=== PATIENT | male | born 1965 | race Caucasian/White ===

== ENCOUNTER → 2022-02-08 11:35 | Outpatient (BNVA) | payer OTHER, SELFPAY | PROVIDERS: PCP Internal Medicine; Referring Provider Nurse Practitioner Primary Care; Visit Provider Internal Medicine | DX: I11.0 Hypertensive heart disease with heart failure (principal); I50.9 Heart failure, unspecified; E11.69 Type 2 diabetes mellitus with other specified complication; E66.01 Morbid (severe) obesity due to excess calories; Z68.42 Body mass index [BMI] 45.0-49.9, adult; E78.5 Hyperlipidemia, unspecified; Z79.899 Other long term (current) drug therapy | CPT/HCPCS: 93005; 99202 ==

== ENCOUNTER → 2022-03-05 13:33 | Outpatient (REF) | payer OTHER, SELFPAY ==
--- NOTE | 2022-03-05 13:37 | CA_ITS ---
Transthoracic Echocardiogram Patient (Last, First, Middle): Jon Vazquez, Gender: Male Date of : 1965 Age: 56 Procedure Date: 03/05/2022 Procedure Type: Transthoracic Echocardiogram Location: OP Height: 170.18 cm Weight: 140.62 kg BSA: 2.44 m2 Heart Rate: 67 bpm BP: 110 / 65 mmHg Antisubmarine Weapons Officer: BLAKE Referring MD: Amauri Aj MD Hollow Handle Bench Worker: Major Garcia MD Symptoms: I50.9 - Heart failure, unspecified Study Quality: Poor/Contrast ECG Rhythm: Sinus Conclusions: - 1. Technically limited study despite use of contrast agent 2. Mildly reduced LV systolic function with LVEF of 45-50% with possible wall motion noted to the distal lateral and apical wall with grade 1 diastolic dysfunction 3. Limited visualization of cardiac valves with normal cardiac valvular Doppler Findings Procedure Information Contrast agent, definity, is being given per protocol without apparent complications. Left Ventricle The left ventricle was not well visualized. Normal left ventricular cavity size. There is mildly increased left ventricular wall thickness. The left ventricular systolic function is mildly decreased. The visually estimated ejection fraction is between 45-50%. Spectral Doppler is indicative of an impaired relaxation filling pattern. E/E prime ratio is <8, consistent with normal filling pressures. Wall Motion Rest Echo Findings The apex and apical lateral segments are hypokinetic. The basal inferior segment is not visualized. All other scored wall segments showed normal motion. Right Ventricle The right ventricle was not well visualized. Atria The left atrium is likely dilated. Interatrial shunt cannot be excluded. The right atrium was not well visualized. Aortic Valve The aortic valve was not well visualized. There is no aortic valve stenosis. There is no aortic valve regurgitation. Mitral Valve Likely normal mitral valve structure and function. There is trace mitral valve regurgitation. There is no mitral valve stenosis. Pulmonic Valve The pulmonic valve was not well visualized. Tricuspid Valve The tricuspid valve was not well visualized. Tricuspid regurgitation envelope is inadequate for calculation of right ventricular systolic pressure. Great Vessels The aorta was not well visualized. The pulmonary artery was not well visualized. Venous The inferior vena cava was not well visualized. Pericardium/Pleural The pericardium was not well visualized. Prior Study Comparison No prior study available for comparison. Measurements 2D Linear Measurements IVSd: 1.16 0.6-0.9/0.6-1.0 cm LVIDd: 5.02 3.9-5.3/4.2-5.9 cm LVIDd Index: 2.06 2.4-3.2/2.2-3.1 cm/m2 LVIDs: 3.60 2.0-3.6 cm LVPWd: 1.19 0.7-1.1 cm LA Diam: 4.20 2.7-3.8/3.0-4.0 cm LAIDs Index: 1.72 1.5-2.3 cm/m2 LV Mass: 284.76 67-162/88-224 g LV Mass Index: 116.71 43-95/49-115 g/m2 LVOT Diam: 2.10 3.0+(-)1.3 cm 2D Systolic Function EF 4C: 50.90 >55% EF 2C: 46.70 >55% EF BiP: 47.90 >55% Mitral Valve MV Pk E: 0.60 MV PK A: 0.89 MV Decel Time: 300.00 E/A: 0.70 E'Lateral: 12.10 E'Medial: 7.94 E/E' Med: 7.60 E/E' Lat: 5.00 PHT: 88.00 MVA PHT: 2.50 Decel Mckenzie: 2.01 Aortic Valve AoV Pk Chong: 1.43 AoV Mn Chong: 1.02 AoV VTI: 0.31 AoV Pk Grad: 8.00 Aov Mn Grad: 5.00 GIGI Cont.VTI: 2.84 LVOT LVOT Pk Chong: 1.32 LVOT Mn Chong: 0.83 LVOT VTI: 0.25 LVOT Pk Grad: 7.00 LVOT Mn Grad: 3.00 LVOT Diam: 2.10 LVOT Area: 3.46 Diastolic Function MV Pk E: 0.60 MV Pk A: 0.89 E/A: 0.70 E'Medial: 7.94 E/E' Med: 7.60 E' Laterial: 12.10 E/E' Lat: 5.00 Right Ventricle TAPSE (mm): 24.20 TVS' Chong: 11.90 Great Vessels Aorta Sinus of Valsalva: 3.50 2.0-3.5 cm Ao Asc: 3.30 2.1-3.4 cm Pulmonary Valve PV Pk Chong: 1.21 Peak PV Grad: 6.00 Updated in Other Vendor System with Status of Final Major Garcia MD electronically signed on 03/06/2022 11:59:05 AM with status of Final
== END ==
LOC: HO.CARD 13:33
PROVIDERS: PCP Internal Medicine; Visit Provider Internal Medicine
DX: I50.9 Heart failure, unspecified (principal)
CPT/HCPCS: 93306; Q9957

== ENCOUNTER → 2022-05-17 10:26 | Outpatient (BNVA) | payer OTHER, SELFPAY | PROVIDERS: PCP Internal Medicine; Referring Provider Internal Medicine; Visit Provider Internal Medicine | DX: I42.8 Other cardiomyopathies (principal); E11.69 Type 2 diabetes mellitus with other specified complication; E66.01 Morbid (severe) obesity due to excess calories; Z68.42 Body mass index [BMI] 45.0-49.9, adult; I10 Essential (primary) hypertension; E78.5 Hyperlipidemia, unspecified; Z79.84 Long term (current) use of oral hypoglycemic drugs; Z79.899 Other long term (current) drug therapy | CPT/HCPCS: 99212 ==

== ENCOUNTER → 2022-07-26 09:08 | Outpatient (BNVA) | payer OTHER, SELFPAY | PROVIDERS: PCP Internal Medicine; Visit Provider Physician Assistant ==

== ENCOUNTER → 2022-08-04 12:30 | Outpatient (BNVA) | payer OTHER, SELFPAY | PROVIDERS: PCP Internal Medicine; Referring Provider Internal Medicine; Visit Provider Physician Assistant Surgical | DX: Z11.0 Encounter for screening for intestinal infectious diseases (principal); E66.01 Morbid (severe) obesity due to excess calories; Z68.41 Body mass index [BMI] 40.0-44.9, adult | CPT/HCPCS: 99202; 99211 ==

== ENCOUNTER 2022-08-04 17:47 | Outpatient (REF) | payer OTHER, SELFPAY ==
[2022-08-05 15:01] LABS: H Pylori Breath Test Negative (Negative)
== END 2022-08-04 17:48 | disposition home or self-care (01) ==
LOC: HO.LNP 17:47
PROVIDERS: Visit Provider Physician Assistant Surgical
DX: E66.01 Morbid (severe) obesity due to excess calories (principal); E11.29 Type 2 diabetes mellitus with other diabetic kidney complication; E66.9 Obesity, unspecified; E78.5 Hyperlipidemia, unspecified; Z11.0 Encounter for screening for intestinal infectious diseases
CPT/HCPCS: 83013

== ENCOUNTER 2022-08-12 09:11 | Outpatient (REF) | payer OTHER, SELFPAY ==
--- NOTE | ~2022-08-12 | XR_ITS ---
EXAMINATION: XR CHEST CLINICAL INFORMATION: Obesity COMPARISON: None available. TECHNIQUE: 2 views of the chest were obtained. FINDINGS: No significant abnormality is noted involving the heart, lungs, mediastinum, bony thorax or soft tissues. Low lung volumes. Degenerative changes of the spine. XR/XR chest 2V IMPRESSION: No evidence for acute disease in the chest.
[2022-08-12 09:39] LABS: MANUAL DIFF FLAG NO
[2022-08-12 10:41] LABS: Basophils Absolute Auto 0.1 X10*3/uL (0.0-0.2); Basophils Percent Auto 0.6 % (0-2); Eosinophils Absolute Auto 0.2 X10*3/uL (0.0-0.4); Eosinophils Percent Auto 2.4 % (0-4); Hematocrit 44.8 % (42.0-52.0); Hemoglobin 15.1 g/dl (14.0-18.0); Imm Gran Abs Auto 0.05 X10*3/uL (0.00-0.03); Imm Gran Pct Auto 0.6 % (0.0-0.4); Lymphocytes Percent Auto 26.2 % (20-40); Mean Corpuscular HGB Conc 33.7 g/dl (31.0-36.0); Mean Corpuscular Hemoglobin 28.9 pg (27.0-33.0); Mean Corpuscular Volume 85.7 fL (80.0-98.0); Mean Platelet Volume 10.9 fL (9.4-12.4); Monocytes Absolute Auto 0.8 X10*3/uL (0.1-1.2); Monocytes Percent Auto 9.6 % (2-11); Neutrophils Absolute Auto 4.7 x10*3/uL (2.0-8.3); Neutrophils Percent Auto 60.6 % (45-73); Platelet Count 148 X10*3/uL (160-400); Red Blood Count 5.23 X10*6/uL (4.60-5.80); Red Cell Distribution Width 13.8 % (11.0-16.0); White Blood Count 7.8 X10*3/uL (4.8-10.8)
[2022-08-12 10:51] LABS: Estimated Average Glucose 143 mg/dL; Hemoglobin A1c % 6.6 %
[2022-08-12 11:01] LABS: Alanine Aminotransferase 35 U/L (0-40); Albumin Level 4.4 g/dL (3.5-5.0); Alkaline Phosphatase 49 U/L (39-117); Anion Gap 13 (12-20); Aspartate Amino Transferase 31 U/L (5-37); Blood Urea Nitrogen 21 mg/dL (9-16); C Reactive Protein 0.17 mg/dL (< or = 0.50); Calcium 9.4 mg/dL (8.4-10.2); Carbon Dioxide 24 mmol/L (22-29); Chloride 107 mmol/L (96-108); Cholesterol 81 mg/dL; Estimated Glomerular Filt Rate > 60; Glucose Random 144 mg/dL (60-115); HDL Cholesterol 35 mg/dL; Iron 70 mcg/dL (45-160); LDL Cholesterol Calculated 29 mg/dl; Percent Iron Saturation 29 % (15-50); Sodium 140 mmol/L (135-145); Total Iron Binding Capacity 238 mcg/dL (228-428); Total Protein 7.2 g/dL (6.5-8.0); Triglycerides 88 mg/dL; Unsaturated Iron Binding 168 ug/dL
[2022-08-12 11:32] LABS: Ferritin 288 ng/mL (20-250); Folate 11.8 ng/mL (> or = 4.0); Insulin 16 uU/mL (2-29); Vitamin B12 449 pg/mL (200-900); Vitamin D 25-OH Total 36.6 ng/mL (>30)
[2022-08-16 21:49] LABS: Calcium (PTHI) 9.6 mg/dL (8.6-10.3); PTHI 28 pg/mL (16-77)
[2022-08-17 05:39] LABS: Zinc 88 mcg/dL (60-130)
[2022-08-19 23:44] LABS: Vitamin A 41 mcg/dL (38-98)
[2022-08-20 06:18] LABS: Vitamin B1 <6 nmol/L (8-30)
== END 2022-08-12 09:12 | disposition home or self-care (01) ==
LOC: HO.LAB 09:11
PROVIDERS: PCP Internal Medicine; Visit Provider Physician Assistant Surgical
DX: E11.69 Type 2 diabetes mellitus with other specified complication (principal); E66.01 Morbid (severe) obesity due to excess calories; E78.5 Hyperlipidemia, unspecified
CPT/HCPCS: 36415; 71046; 80053; 80061; 82306; 82607; 82728; 82746; 83036; 83525; 83540; 83970; 84425; 84443; 84590; 84630; 85025; 86140

== ENCOUNTER → 2022-08-17 09:38 | Outpatient (BNVA) | payer OTHER, SELFPAY | PROVIDERS: PCP Internal Medicine; Referring Provider Physician Assistant Surgical; Visit Provider Dietitian, Registered | DX: E66.01 Morbid (severe) obesity due to excess calories (principal) | CPT/HCPCS: 97802 ==

== ENCOUNTER → 2022-08-24 12:19 | Outpatient (BNVA) | payer OTHER, SELFPAY | PROVIDERS: PCP Internal Medicine; Visit Provider Physician Assistant Surgical | DX: E66.01 Morbid (severe) obesity due to excess calories (principal); Z68.41 Body mass index [BMI] 40.0-44.9, adult | CPT/HCPCS: 99212 ==

== ENCOUNTER 2022-09-14 09:42 | Outpatient (REF) | payer OTHER, SELFPAY ==
--- NOTE | ~2022-09-14 | XR_ITS ---
EXAMINATION: XR KNEE, RIGHT CLINICAL INFORMATION: Pain COMPARISON: None available. TECHNIQUE: Four views of the right knee. FINDINGS: Bone alignment is normal. No fracture or dislocation. Arthritis at the medial femoral tibial and patellofemoral joints the joint space narrowing and osteophyte formation. Osteophyte at the quadriceps tendon insertion to the patella. Small joint effusion. XR/XR knee RT 4V IMPRESSION: Osteoarthritis and small joint effusion.
== END 2022-09-14 09:43 | disposition home or self-care (01) ==
LOC: HO.XRAY 09:42
PROVIDERS: PCP Internal Medicine; Visit Provider Internal Medicine
DX: M25.561 Pain in right knee (principal); E66.01 Morbid (severe) obesity due to excess calories
CPT/HCPCS: 73564; 99212

== ENCOUNTER 2022-09-23 06:53 | Outpatient (REF) | payer OTHER, SELFPAY ==
--- NOTE | ~2022-09-23 | FL_ITS ---
EXAMINATION: XR FLUOROSCOPY UPPER GI WITH AIR CLINICAL INFORMATION: Morbid/severe obesity due to excess calories COMPARISON: None available. TECHNIQUE: Routine upper GI contrast study was performed. FINDINGS: Following oral administration of thick barium and effervescent granules there is normal propagation bolus from the oral cavity through the pharynx, esophagus into stomach without any evidence of obstruction, narrowing or stricture. On placing patient supine and prone lying the course, caliber and peristalsis, caliber and peristalsis of the stomach and the duodenal bulb is normal. The mucosal pattern of the stomach and the duodenal bulb and the sweep is normal. No gastroesophageal reflux or hiatal hernia FLUOROSCOPY TIME: 1.4 minutes DOSE AREA PRODUCT: 51.666 uGy-m2 (microgray-meter squared) FL/FL upper GI w air IMPRESSION: Unremarkable upper GI air-contrast study
--- NOTE | ~2022-09-23 | US_ITS ---
EXAMINATION: US COMPLETE ABDOMEN WITH LIVER ELASTOGRAPHY CLINICAL INFORMATION: Morbid obesity due to excess calories. COMPARISON: None available. TECHNIQUE: Real-time imaging of the abdominal viscera. Noninvasive ultrasound liver fibrosis assessment is performed using Mariusz ElastPQ point quantification shear wave elastography (2D-SWE) with a C5-2 MHz transducer. Multiple elastography samples are obtained. FINDINGS: PANCREAS: Normal. The visualized pancreatic head and body are normal in appearance. The remainder of the pancreas is obscured from visualization by the overlying bowel gas. ABDOMINAL AORTA: The proximal, middle, and distal aortic segments are normal in caliber. INFERIOR VENA CAVA: Visualized portions are normal. LIVER: Normal. The liver demonstrates normal size, contour and echogenicity. No focal lesion or intrahepatic biliary duct dilatation. The right lobe measures 20.0 cm in length. The left lobe measures 10.0 cm in length. Portal flow is hepatopedal. Shear wave liver elastography median stiffness is 1.48 m/s (reference: normal median stiffness is 1.3 m/s or less). IQR/median stiffness to assess sampling precision is 0.14 (reference: good quality data set is IQR/median stiffness of 0.15 or less). GALLBLADDER: The gallbladder has been surgically removed. COMMON BILE DUCT: Normal in caliber measuring 0.60 cm in diameter. RIGHT KIDNEY: There are anechoic cysts in the upper pole measuring 1.4 x 1.0 x 1.0 cm and 0.7 x 0.5 x 0.8 cm. No hydronephrosis. No renal calculi or focal parenchymal lesions. The lower poles of both kidneys are joined suggestive of horseshoe kidneys. The kidney measures 12.3 cm in maximum dimension. LEFT KIDNEY: Normal. No hydronephrosis. No renal calculi or focal parenchymal lesions. The kidney measures 12.9 cm in maximum dimension. The lower pole of both kidneys are joined suggestive of horseshoe kidney. SPLEEN: Normal. The spleen measures 13.5 cm in maximum dimension. FREE FLUID: None. US/US abdomen comp w elastography IMPRESSION: 1. 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 Several right kidney upper pole cysts. 2. Cholecystectomy. 3. Liver elastography: Median liver stiffness measures 1.48 m/s corresponding to cACLD (ruled out). REFERENCE: Society of Radiologists in Ultrasound Liver Stiffness Thresholds (2020): LIVER STIFFNESS THRESHOLDS: *Liver Stiffness equal or less than 1.3 m/s: High probability of being normal. *Liver Stiffness less than 1.7 m/s: In the absence of other known clinical signs, rules out compensated advanced chronic liver disease. *Liver Stiffness 1.7-2.1 m/s: Suggestive of compensated advanced chronic liver disease but need further test for confirmation. *Liver Stiffness over 2.1 m/s: Rules in compensated advanced chronic liver disease. *Liver Stiffness over 2.4 m/s: Suggestive of clinically significant portal hypertension. QUALITY OF DATA SET: *IQR/Median value equal or less than 0.15 implies a quality data set. *IQR/Median value over 0.15 implies a poor quality data set. SIGNIFICANT CHANGE FROM PRIOR EXAM: Significant change if liver stiffness measurement is 10% or greater from prior exam. OTHER CONSIDERATIONS: The stage of liver fibrosis may be overestimated in the setting of acute hepatitis, liver inflammation, elevated liver function tests, hepatic vascular congestion, obstructive cholestasis, non-fasting state, and infiltrative diseases such as amyloidosis and lymphoma. In some patients with NAFLD, the liver stiffness thresholds for compensated advanced chronic liver disease may be lower. In causes other than viral hepatitis and NAFLD, liver stiffness thresholds are not well established.
== END 2022-09-23 06:54 | disposition home or self-care (01) ==
LOC: HO.US 06:53
PROVIDERS: PCP Internal Medicine; Visit Provider Physician Assistant Surgical
DX: Z01.818 Encounter for other preprocedural examination (principal); E66.01 Morbid (severe) obesity due to excess calories; K21.9 Gastro-esophageal reflux disease without esophagitis; E78.5 Hyperlipidemia, unspecified; E11.69 Type 2 diabetes mellitus with other specified complication
CPT/HCPCS: 74246; 76705; 76981

== ENCOUNTER → 2022-10-22 08:52 | Outpatient (BNVA) | payer OTHER, SELFPAY | PROVIDERS: Visit Provider Dietitian, Registered | DX: E66.01 Morbid (severe) obesity due to excess calories (principal); E11.69 Type 2 diabetes mellitus with other specified complication; Z68.41 Body mass index [BMI] 40.0-44.9, adult | CPT/HCPCS: 97803 ==

== ENCOUNTER → 2022-11-04 09:32 | Outpatient (BNVA) | payer OTHER, SELFPAY | PROVIDERS: Visit Provider Physician Assistant Surgical | DX: E66.01 Morbid (severe) obesity due to excess calories (principal); Z68.41 Body mass index [BMI] 40.0-44.9, adult | CPT/HCPCS: 99212 ==

== ENCOUNTER 2022-11-19 10:22 | Outpatient (AMB) | payer OTHER, SELFPAY ==
--- NOTE | 2022-11-19 11:18 | A.OFFWM_ITS ---
Intake Intake Visit Reasons: (OV) F/U BH Allergies No Known Allergies Allergy (Verified 11/04/22 10:15) PFSH Medical History Asthma Chronic back pain Depression with anxiety Diabetes mellitus type 2 in obese Essential hypertension Hyperlipidemia, unspecified Morbid obesity GERDA (obstructive sleep apnea) Surgical History H/O right knee surgery Hx of cholecystectomy Hx of oral surgery Family History Father Lung cancer Mother Cancer Liver failure Sister No problems noted. Brother No problems noted. Brother No problems noted. Social History Alcohol intake: never Patient Tobacco Use Status: Never used Tobacco Behavioral Health Assessment Weight Management Therapy Therapy Notes Details Pt is a 56 year old, , albanian-speaking male who presents for BH assessment as a part of Surgical Weight-loss management program. PT started program in july, and has been able to loss 10Lbs. Reports to feel able to follow meal plan, but exercise is hard due to knee problems. He currently attends counseling services and gets prescribed psych meds. States he suffers from depression and anxiety but feels stable at this time. PT is not cleared as we will need a f/up to complete BES and PHQ-9 Presenting Concerns Referral Source WMP Provider. Reason for referral Completion of behavioral health assessment as part of process for weight-loss surgery. Precipitating Event Obesity, diabetes, HTN, body aches, knee problem. He wants to be healthy. Living Situation Current Living Situation Rent At risk of losing current housing? No Satisfied with current living situation? Yes Comments PT lives alone. Food/Weight/Diet Expectations of change PT wants to be at his healthy weight. one of the Goals is to lose 10% of his weight before surgery, which is about 28 lbs. Ultimate weight goal: 255 lbs before surgery History/Relationship with food Pt reports he used to find comfort in food, when depressed he used to eat a lot. But in general he loves food and is aware that his diet is hispanic0-style, mainly composed by fried foods, multiple carbs in 1 meal and limited physical activity. Used to eat big portions, a lot of bread. History/Relationship with weight PT reports he started gaining weight at age 15. Weight got out of control on his 30's. History/Relationship with dieting smaller portions, healthy options, Binge Eating Do you frequently eat large amounts of food in short periods of time, not feeling physically hungry? Yes Do you feel out of control when you eat a large amount of food in a short period of time? Yes Do you eat large amounts of food rapidly and typically alone? Yes Night Eating Do you wake up at least once during the night to eat? No If you wake up in the night, do you find that it is necessary to eat something in order to fall back asleep? No Do you have little or no appetite in the morning and feel very hungry in the evening, often overeating between dinner and when you go to bed? No Social History Family history and relationship PT is single. Was in a intermediate relationship for 20 years but partner in 2019. He had 1 daughter who days after . PT has 3 siblings who live in [place]. [place] he had a hard childhood, raised by paternal grandmother. His Mother was forced to his father, they and his father took his custody but since dad had to work overseas, grandparents raised him. Parental/Familial perfect binder setter obligations None. Developmental history and status Slow learner , had behavioral issues. Social support An uncle who lives close. 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 Community support Providers Oriental Orthodox/Spirituality Tenriism but doesn't attend [facility]. Cultural/Ethnic information PT was born in [place]. [place] the [place]. Has lives in multiple states and moved back to in [facility] one year ago. Legal Involvement and History Current or historical involvement with the legal system? None. Education Highest grade completed 9th grade. Preferred learning style Learn by doing and Visual Currently enrolled in educational program? No Interested in further educational program? No Educational Interests/Skills None identified. Employment Employment Status Retired Wants help to find employment? No Meaningful activities Watch tv, read the bible, visit brother/friends. Financial Situation Describe current financial situation Occasional struggle Financial assistance? Food [place] [employer] Service? No Mental Health and Addiction Treatment Current/Past substance abuse? No Current/Past addictive behavior concerns? No Psychiatric history Pt attends counseling and sees a prescriber at [facility]. Sees Ross Feldman as therapist. [phone] [id number]. Takes: Cymbalta 60mg 1 at day, klonopin 0.5mg 1 as needed. Reports he suffers from depression and has panic attacks. States he has never been hospitalized for MH and/or in crisis. Denies any hx of SI and or other concern around self/other-harm. Medical and Physical Health Summary Additional Medical History not covered in history None reported. Sexual History concerns None reported Physical exam in the last year? Yes Pain Screening Current pain? Yes Pain in the last few months? Yes Medications Is the patient compliant with medications? Yes Does the patient have Ford Guardian in place? Not applicable Does the patient use complimentary health approaches? No Trauma/Abuse History History of trauma? Yes (Multiple losses in his life, hard childhood.) Assessment & Plan Assessment & Plan (1) Depression: Code(s): F32.A - Depression, unspecified Qualifiers: Depression Type: major depressive disorder Major depression episode severity: unspecified Major depression recurrence: recurrent (2) Panic anxiety syndrome: Code(s): F41.0 - Panic disorder [episodic paroxysmal anxiety] Plan PT is not cleared. Will need to complete BES on next jasen and parts of assessment. Coding Level of Care Code New Pt Psy Diag Allyson ([id number]) Patient Type New Diagnoses Depression F32.A Depression Type: major depressive disorder Major depression episode severity: unspecified Major depression recurrence: recurrent Panic anxiety syndrome F41.0 Time Spent (min) 45 Comment 11:00-11:45am
== END 2022-11-23 16:26 | disposition home or self-care (01) ==
PROVIDERS: PCP Internal Medicine; Visit Provider Counselor Mental Health
DX: F32.A Depression, unspecified (principal); F41.0 Panic disorder [episodic paroxysmal anxiety]
CPT/HCPCS: 90791

== ENCOUNTER → 2022-11-19 10:22 | Outpatient (BNVA) | payer OTHER, SELFPAY | PROVIDERS: PCP Internal Medicine; Visit Provider Counselor Mental Health ==

== ENCOUNTER → 2022-11-22 09:21 | Outpatient (BNVA) | payer OTHER, SELFPAY | PROVIDERS: PCP Internal Medicine; Visit Provider Dietitian, Registered ==

== ENCOUNTER → 2022-11-29 09:10 | Outpatient (BNVA) | payer OTHER, SELFPAY | PROVIDERS: PCP Internal Medicine; Visit Provider Dietitian, Registered ==

== ENCOUNTER 2022-12-03 10:41 | Outpatient (AMB) | payer OTHER, SELFPAY ==
--- NOTE | 2022-12-03 10:48 | A.OFFVIS_ITS ---
Intake VS Expanded 12/03/22 11:02 Height 5 ft 7 in Weight 271 lb BMI 42.4 BP 105/58 L Blood Pressure Location Rt brachial Blood Pressure Position Sitting Pulse 72 Pulse Source Pulse Oximeter Temp 97.4 F Temperature Source Temporal Artery Scan Pulse Oximetry 97 Oxygen Delivery Method Room Air Body Fat 105.4 Body Fat Percentage 38.9 Free Fat Mass 165.6 Muscle Mass 157.4 Visceral Mass 25.0 Water Mass 120.6 BMR 2,289 Intake Visit Reasons: (OV) F/U SWL Allergies No Known Allergies Allergy (Verified 12/03/22 10:57) HPI HPI Comments History of Present Illness Details The patient is a pleasant 56 year old male who returns to the clinic for pre-operative surgical weight loss management.? They were last seen in the office on 09/14/22, recorded weight at that time was 273.8 pounds, with a BMI of 42.9.? Today's weight is 271 pounds and BMI is 42.4.? There has been a weight loss of 14.4 pounds since initiating the surgical weight loss program on 07/26/22 with a total body weight loss of 5 %. Pre op work up completed as follows: SWL classes:? 12/14 BH appts: 12/16/22? ? RD appts: 12/20/22 Labs: 08/12/22-Low B1, B12:449 H. pylori: 08/04/22-neg CXR: 09/01/22-nad EKG: TTE for hx CHF 03/05/22 EF 45-50 % with grade 1 diastolic dysfxn, f/u Dr Aj May 31 and felt non-ischemic w recc f/u 1 year ABD U/S: 09/23/22-horseshoe kidney, fatty liver UGI: 09/23/22-normal The patient reports he is continuing PT and is going to see Ortho in [facility] 12/10/22.? He is scheduled for knee injections but has not gotten them yet.? He is also scheduled for a home sleep study.? He did not get the sleep study from [place] that suggested that he no longer requires CPAP.? He is using Keto bar (15 gm protein) because he cannot find the zone perfect bars.? He was having low blood sugars and metformin was reduced to 500 mg BID and glipizide is no longer being taken and now his blood sugars are much better controlled with sugars 105-110.? Current meal plan includes: 3 Pure Protein shakes ([employer], [employer], [facility]) First shake? (1/2 scoop in 8 oz low fat unsweetened almond milk) at 8am-10am Second shake (1/2 scoop in 8 oz unsweetened almond milk) at? 11am-1pm Dinner at 4pm (10 forks of protein and 10 forks of salad/vegetables). 1 protein bar (Keto bars at [employer], [facility], or [employer]) at 5pm-7pm. Another shake with 1/2 scoop in 8 oz unsweetened almond milk at 8pm-10pm. Drinking 40 oz of water Current exercise plan includes: walking 4-5 x per [id number] minutes.? M/W/F PT.? Not yet joined [facility] Medical History Asthma Chronic back pain Depression with anxiety Diabetes mellitus type 2 in obese Essential hypertension Hyperlipidemia, unspecified Morbid obesity GERDA (obstructive sleep apnea) Surgical History H/O right knee surgery Hx of cholecystectomy Hx of oral surgery Family History Father Lung cancer Mother Cancer Liver failure Sister No problems noted. Brother No problems noted. Brother No problems noted. Social History Alcohol intake: never Patient Tobacco Use Status: Never used Tobacco Physical Exam Vital Signs: Last Vital Signs Temp 97.4 F 12/03/22 11:02 Pulse 72 12/03/22 11:02 BP 105/58 L 12/03/22 11:02 Pulse Ox 97 12/03/22 11:02 Oxygen Delivery Method Room Air 12/03/22 11:02 BMI result Body Mass Index 42.4 Const General: healthy appearing and no acute distress Resp Effort & Inspection: normal respiratory effort Auscultation: clear to auscultation bilaterally Cardio Rate: regular rate Rhythm: regular rhythm GI Auscultation: normal bowel sounds Extrem General: Yes normal to inspection Assessment & Plan Assessment & Plan (1) Morbid obesity: Code(s): E66.01 - Morbid (severe) obesity due to excess calories Plan: Strongly encouraged to join [employer] and walk in the pool, states he will join next month Discussed importance of exercise as related to weight loss Continue meal plan reminded of upcoming appts rtc 1 month Coding Level of Care Code Est Pt Level 3 (22596) Diagnoses Morbid obesity E66.01
[2022-12-03 11:02] VITALS: BP 105/58; PULSE 72; TEMP 36.3; O2SAT 97; BMI 42.4
== END 2022-12-03 11:45 | disposition home or self-care (01) ==
PROVIDERS: PCP Internal Medicine; Visit Provider Physician Assistant Surgical
DX: E66.01 Morbid (severe) obesity due to excess calories (principal)
CPT/HCPCS: 99213

== ENCOUNTER → 2022-12-03 10:41 | Outpatient (BNVA) | payer OTHER, SELFPAY | PROVIDERS: PCP Internal Medicine; Visit Provider Physician Assistant Surgical | DX: E66.01 Morbid (severe) obesity due to excess calories (principal); Z68.41 Body mass index [BMI] 40.0-44.9, adult | CPT/HCPCS: 99212 ==

== ENCOUNTER → 2022-12-06 09:23 | Outpatient (BNVA) | payer OTHER, SELFPAY | PROVIDERS: PCP Internal Medicine; Visit Provider Dietitian, Registered ==

== ENCOUNTER 2022-12-10 08:57 | Outpatient (AMB) | payer OTHER, SELFPAY ==
[2022-12-10 09:37] VITALS: BMI 42.4
--- NOTE | 2022-12-10 09:37 | MHC.OFFVIS ---
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 States he has had pain for many years. States his pain has increase about 7 months ago. Patient has tried P.T but his pain relief is temporarily. HX of rt MT repair about 10 yrs ago in [place]. States he has also tried injection, last on was done 2 yrs ago with dood result. Patient would like to discuss injection today. HX of DM and HBP. Allergies No Known Allergies Allergy (Verified 12/10/22 09:42) HPI Wellness Specialist- OA of right knee HPI Details Jon is a 56 year old Diabetic man who presents with complaints of right knee pain. He has pain with weight-bearing activities, worse with walking or standing from a seated position. He says he has had pain for many years, but it worsened in the last ~7 months. He has a hx of injections, with good relief, and PT which gave limited relief. He has a Hx of a right knee meniscectomy done in 2013 in [place], has Diabetes, and a Hx of CHF. He is undergoing an evaluation for Bariatric surgery and working on weight management [facility] Medical History Asthma Chronic back pain Depression with anxiety Diabetes mellitus type 2 in obese Essential hypertension Hyperlipidemia, unspecified Morbid obesity GERDA (obstructive sleep apnea) Surgical History H/O right knee surgery Hx of cholecystectomy Hx of oral surgery Family History Father Lung cancer Mother Cancer Liver failure Sister No problems noted. Brother No problems noted. Brother No problems noted. Social History Alcohol intake: never Patient Tobacco Use Status: Never used Tobacco Review of Systems Const All systems reviewed & are unremarkable except as noted in HPI and below Physical Exam Vital Signs: BMI result Body Mass Index 42.4 Const General: no acute distress, alert and awake Orientation/consciousness: patient oriented x3 HEENT Head: Yes normocephalic and Yes atraumatic Eyes EOM: EOMs intact bilaterally Resp Effort & Inspection: normal respiratory effort and able to speak in complete sentences Cardio Jugular venous distension: no JVD Skin General skin exam: turgor normal Rashes: no rashes Neuro General: patient oriented x3 Extrem Other: Right Knee: Sharp TTP over medial compartment, most prominent in medial tibial plateau Bilateral varus knees 10-120 degrees ROM bilaterally Walks with antalgia Psych Appearance: grossly normal Affect: normal affect Attitude: cooperative Office Procedures Joint Injection/Drain Joint Injection/Drain Details: Injected 1 mL of Decadron and 3 mL 1% lidocaine and 3 mL of 0.25% Marcaine. Site was prepped using aseptic technique. Patient tolerated the procedure well. Primary Site: right knee Approach Used: anterolateral Coding 77663 - Large joint Procedure code (CPT) selection complete Results Reviewed Results Reviewed: 12/10/22 09:43 Lidocaine HCl 2 % MPF [Xylocaine 2 % MPF] 5 ml .ROUTE .STK-MED ONE dexAMETHasone sod phosphate [Decadron] 4 mg .ROUTE .STK-MED ONE I personally reviewed relevant radiographs. Severe varus pattern bilateral knee OA Assessment & Plan Assessment & Plan (1) Osteoarthritis of right knee: Code(s): M17.11 - Unilateral primary osteoarthritis, right knee Plan: This is a 56 year old man with bilateral knee OA, R>L, S/P right meiscectomy in ~2012. He has pain with weight-bearing activities, worse with ambulation or standing from a seated position. He has a hx of relief from injections & PT in the past, and walks with antalgia. I discussed his diagnosis and treatment options, including surgery in the future. I injected his right knee today, which he tolerated well. If he is able to improve his BMI and bring it <40.0 then I think he would be a good candidate for a TKA. He will f/u in 3 months. (2) Diabetes mellitus type 2 in obese: Code(s): E11.69 - Type 2 diabetes mellitus with other specified complication; E66.9 - Obesity, unspecified Plan: I discussed the hyperglycemic effects of steroid injections (3) Morbid obesity: Code(s): E66.01 - Morbid (severe) obesity due to excess calories Plan: Current BMI 42.4. Working with Bariatrics (4) Osteoarthritis of left knee: Code(s): M17.12 - Unilateral primary osteoarthritis, left knee (5) Congestive heart failure: Code(s): I50.9 - Heart failure, unspecified Plan Scribed for Tommy Bhardwaj MD by Lamonte Romero, hospital medical assistant, on 12/10/22 at 10:55 AM, EST. Orders: Orders XR knee RT 2V Today M25.569 - Pain in unspecified knee XR knee standing BI Today M25.569 - Pain in unspecified knee Coding Level of Care Code New Pt Level 4 (62759) Diagnoses Osteoarthritis of right knee M17.11 Diabetes mellitus type 2 in obese E11.69; E66.9 Morbid obesity E66.01 Osteoarthritis of left knee M17.12 Congestive heart failure I50.9 CPT Codes Coding - 53093 Large joint: 22527 - Large joint ([id number])
== END 2022-12-10 10:58 | disposition home or self-care (01) ==
PROVIDERS: PCP Internal Medicine; Visit Provider Orthopaedic Surgery
DX: M17.0 Bilateral primary osteoarthritis of knee (principal); E11.69 Type 2 diabetes mellitus with other specified complication; E66.01 Morbid (severe) obesity due to excess calories; I50.9 Heart failure, unspecified
CPT/HCPCS: 20610; 99204

== ENCOUNTER 2022-12-10 08:57 | Outpatient (REF) | payer OTHER, SELFPAY ==
--- NOTE | ~2022-12-10 | XR_ITS ---
EXAMINATION: Knee x-ray CLINICAL INFORMATION: Pain COMPARISON: [facility] right knee x-ray September 2022 TECHNIQUE: Standing AP view of both knees and lateral and sunrise view of the right knee FINDINGS: Right: There is mild varus angulation. Bone alignment is otherwise normal. No fracture or dislocation. Arthritis at the medial femoral tibial and patellofemoral joints with joint space narrowing and osteophyte formation. Moderate joint effusion. Standing AP view of the left knee demonstrates mild varus angulation and joint space narrowing at the medial femoral tibial joint. XR/XR knee standing BI IMPRESSION: Bilateral arthritis.
--- NOTE | ~2022-12-10 | XR_ITS ---
EXAMINATION: Knee x-ray CLINICAL INFORMATION: Pain COMPARISON: Radius right knee x-ray September 2022 TECHNIQUE: Standing AP view of both knees and lateral and sunrise view of the right knee FINDINGS: Right: There is mild varus angulation. Bone alignment is otherwise normal. No fracture or dislocation. Arthritis at the medial femoral tibial and patellofemoral joints with joint space narrowing and osteophyte formation. Moderate joint effusion. Standing AP view of the left knee demonstrates mild varus angulation and joint space narrowing at the medial femoral tibial joint. XR/XR knee RT 2V IMPRESSION: Bilateral arthritis.
== END 2022-12-10 08:58 | disposition home or self-care (01) ==
LOC: HO.HOSX 08:57
PROVIDERS: PCP Internal Medicine; Visit Provider Orthopaedic Surgery
DX: M17.0 Bilateral primary osteoarthritis of knee (principal); E11.69 Type 2 diabetes mellitus with other specified complication; E66.01 Morbid (severe) obesity due to excess calories; I50.9 Heart failure, unspecified
CPT/HCPCS: 20610; 73560; 73565; 99202; J1100

== ENCOUNTER 2022-12-16 09:26 | Outpatient (AMB) | payer OTHER, SELFPAY ==
--- NOTE | 2022-12-16 10:00 | A.OFFVIS_ITS ---
Intake Intake Visit Reasons: (OV) F/U SWL Patient Access Registrar Required: Yes Patient Access Registrar Name: [id number] Information Interpreted: non-clinical & clinical Allergies No Known Allergies Allergy (Verified 12/10/22 09:42) HPI Nutrition Presentation Details CONCESSIONIST weight 283# Reason for consult elevated BMI Diet Assmnt Details Today we reviewed all the quizzes - took them in person. Explained the rationale for the correct answers for some questions he did not answer correctly. Pt demonstrates understanding. Education last appt about fats was recalled today and demonstrated in discussion Pt reports he has stopped eating carbs . for meals eats salad with chicken or fish. will do a stirfry sometimes as well. Dietary counseling reduction Diagnosis Nutrition problem #1 overweight/obesity As related to (etiology) #1 excess energy intake and physical inactivity As evidenced by (sign/symptom) #1 high BMI Monitoring/Goals Nutrition problem monitoring total energy intake, level of knowledge/skill, total PRO intake, total CHO intake and weight Outcome progress progressing Learning/Education Readiness to learn good Stages of change action Most Recent Diabetes Results: No Data to Display ON LICENSE OF [facility] Medical History Asthma Chronic back pain Depression with anxiety Diabetes mellitus type 2 in obese Essential hypertension Hyperlipidemia, unspecified Morbid obesity GERDA (obstructive sleep apnea) Surgical History H/O right knee surgery Hx of cholecystectomy Hx of oral surgery Family History Father Lung cancer Mother Cancer Liver failure Sister No problems noted. Brother No problems noted. Brother No problems noted. Social History Alcohol intake: never Patient Tobacco Use Status: Never used Tobacco Assessment & Plan Assessment & Plan (1) Morbid obesity: Code(s): E66.01 - Morbid (severe) obesity due to excess calories (2) Diabetes mellitus type 2 in obese: Code(s): E11.69 - Type 2 diabetes mellitus with other specified complication; E66.9 - Obesity, unspecified Patient Instructions: pt will need very clear instruction post op, but with proper guidance will be a good candidate and is cleared. Coding Level of Care Code Nutr Indiv Subseq (04907) Diagnoses Morbid obesity E66.01 Diabetes mellitus type 2 in obese E11.69; E66.9 Time Spent (min) 30 Comment in office
== END 2022-12-16 10:21 | disposition home or self-care (01) ==
PROVIDERS: PCP Internal Medicine; Visit Provider Dietitian, Registered
DX: E66.01 Morbid (severe) obesity due to excess calories (principal); E11.69 Type 2 diabetes mellitus with other specified complication; E66.9 Obesity, unspecified

== ENCOUNTER 2022-12-16 09:26 | Outpatient (AMB) | payer OTHER, SELFPAY ==
--- NOTE | 2022-12-16 10:42 | A.OFFWM_ITS ---
Intake Intake Visit Reasons: (OV) BH F/U Allergies No Known Allergies Allergy (Verified 12/10/22 09:42) PFSH Medical History Asthma Chronic back pain Depression with anxiety Diabetes mellitus type 2 in obese Essential hypertension Hyperlipidemia, unspecified Morbid obesity GERDA (obstructive sleep apnea) Surgical History H/O right knee surgery Hx of cholecystectomy Hx of oral surgery Family History Father Lung cancer Mother Cancer Liver failure Sister No problems noted. Brother No problems noted. Brother No problems noted. Social History Alcohol intake: never Patient Tobacco Use Status: Never used Tobacco Behavioral Health Assessment Weight Management Therapy Therapy Notes Details Pt is a 56 year old, , Cuban-speaking male who presents for a follow up appointment to complete assessment as a part of Surgical Weight- loss management program. He started program in july, and has been able to loss 10Lbs. Reports he continues following meal plan, but exercise still a struggle, however he will soon get membership for the [employer]. On the other hand ststes he has been down as december in general is a hard month due to several losses he has had across his life this month. INTERVENTIONS: administered BES and PHQ-9, processed scores. Discussed challenges with exercise and created ideas/plan to increase physical activity. Obtained KARAN for therapist/prescriber to clarify diagnosis, medication list and prognosis/recommendations/concerns for Bariatric surgery. Provided with strategies to manage cravings and low mood that could triggers emotional-eating. RESPONSES: PT was engaged and received well recommendations. PLAN: PT agreed to pursue [employer] membership this week. PT will f/up in 4-5 weeks. Clearance pending upon feedback from current provider. KARAN will be faxed to Paul and this provider will call his therapist today. Presenting Concerns Referral Source P Provider. Reason for referral Completion of behavioral health assessment as part of process for weight-loss surgery. Precipitating Event Obesity, diabetes, HTN, body aches, knee problem. He wants to be healthy. Living Situation Current Living Situation Rent At risk of losing current housing? No Satisfied with current living situation? Yes Comments PT lives alone. Food/Weight/Diet Expectations of change PT wants to be at his healthy weight. one of the Goals is to lose 10% of his weight before surgery, which is about 28 lbs. Ultimate weight goal: 255 lbs. before surgery History/Relationship with food Pt reports he used to find comfort in food, when depressed he used to eat a lot. But in general he loves food and is aware that his diet is hispanic0-style, mainly composed by fried foods, multiple carbs in 1 meal and limited physical activity. Used to eat big portions, a lot of bread. History/Relationship with weight PT reports he started gaining weight at age 15. Weight got out of control on his 30's. History/Relationship with dieting smaller portions, healthy options, Binge Eating Do you frequently eat large amounts of food in short periods of time, not feeling physically hungry? No Do you feel out of control when you eat a large amount of food in a short period of time? No Do you eat large amounts of food rapidly and typically alone? No Night Eating Do you wake up at least once during the night to eat? No If you wake up in the night, do you find that it is necessary to eat something in order to fall back asleep? No Do you have little or no appetite in the morning and feel very hungry in the evening, often overeating between dinner and when you go to bed? No Social History Family history and relationship PT is single. Was in a emt intermediate relationship for 20 years but partner in 2019. He had 1 daughter who days after . PT has 3 siblings who live in [place]. [place] he had a hard [place], raised by paternal grandmother. His Mother was forced to his father, they and his father took his custody but since dad had to work overseas, grandparents raised him. Parental/Familial crook operator obligations None. Developmental history and status Slow learner , had behavioral issues. Social support An uncle who lives close. 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 Community support Providers Moravian/Spirituality Jain but doesn't attend [facility]. Cultural/Ethnic information PT was born in [place]. Has lives in multiple states and moved back to in [facility] one year ago. Legal Involvement and History Current or historical involvement with the legal system? None. Education Highest grade completed 9th grade. Preferred learning style Learn by doing and Visual Currently enrolled in educational program? No Interested in further educational program? No Educational Interests/Skills None identified. Employment Employment Status Retired Wants help to find employment? No Meaningful activities Watch tv, read the bible, visit brother/friends. Financial Situation Describe current financial situation Occasional struggle Financial assistance? Food [place] Service Service? No Mental Health and Addiction Treatment Current/Past substance abuse? No Current/Past addictive behavior concerns? No Psychiatric history Pt attends counseling and sees a prescriber at [facility]. Sees Ross Feldman as therapist. [phone] [id number]. Takes: Cymbalta 60mg 1 at day, klonopin 0.5mg 1 as needed. Reports he suffers from depression and has panic attacks. States he has never been hospitalized for MH and/or in crisis. Denies any hx of SI and or other concern around self/other-harm. Medical and Physical Health Summary Additional Medical History not covered in history None reported. Sexual History concerns None reported Physical exam in the last year? Yes Pain Screening Current pain? Yes Pain in the last few months? Yes Medications Is the patient compliant with medications? Yes Does the patient have Ford Guardian in place? Not applicable Does the patient use complimentary health approaches? No Trauma/Abuse History History of trauma? Yes (Multiple losses in his life, hard childhood.) Questionnaires PHQ-9 Over the last 2 weeks, how often have you been bothered by any of the following problems? 1. Little interest or pleasure in doing things: several days 2. Feeling down, depressed, or hopeless: several days 3. Trouble falling or staying asleep, or sleeping too much: not at all 4. Feeling tired or having little energy: not at all 5. Poor appetite or overeating: not at all 6. Feeling bad about yourself - or that you are a failure or have let yourself or your family down: several days 7. Trouble concentrating on things, such as reading the newspaper or watching television: several days 8. Moving or speaking so slowly that other people could have noticed. Or the opposite - being so fidgety or restless that you have been moving around a lot more than usual: not at all 9. Thoughts that you would be better off or of hurting yourself in some way: not at all Total score: 4 Depression Screening Interpretation: Negative Source: Developed by Drs. Maldonado Tavera, Sravani Lebron, Lyndon Lloyd and colleagues, with an educational rosi from [employer]. Binge Eating Scale Group 1 A. I don't feel self-conscious about my wt. or body size when I'm with others. B. I feel concerned about how I look to others, but it normally does not make me fell disappointed with myself C. I do get self-conscious about my appearance and wt. which makes me feel disappointed in myself. D. I feel very self-conscious about my wt. and frequently I feel intense shame and disgust for myself. I try to avoid social contacts because of my self- consciousness. Response Group 1: A Group 2 A. I don't have any difficulty eating slowly in the proper manner. B. Although I seem to gobble down foods, I don't end up feeling stuffed because of eating to much. C. At times, I tend to eat quickly and then, I feel uncomfortably full afterwards. D. I have the habit of bolting down my food, without really chewing it. When this happens I usually feel uncomfortably stuffed because I've eaten to much. Response Group 2: A Group 3 A. I feel capable to control my eating urges when I want to. B. I feel like I have failed to control my eating more than the average person. C. I feel utterly helpless when it comes to feeling in control of my eating urges. D. Because I feel so helpless about controlling my eating I have become very desperate about trying to get control. Response Group 3: A Group 4 A. I don't have the habit of eating when I'm bored. B. I sometimes eat when I'm bored, but often I'm able to get busy and get my mind off food. C. I have a regular habit of eating when I'm bored, but occasionally, I can use some other activity to get my mind off eating. D. I have a strong habit of eating when I'm bored. Nothing seems to help me breath the habit. Response Group 4: A Group 5 A. I'm usually physically hungry when I eat something. B. Occasionally, I eat something on impulse even though I really am not hungry. C. I have the regular habit of eating foods, that I might not really enjoy, to satisfy a hungry feeling even though physically, I don't need the food. D. Although I'm not physically hungry, I get a hungry feeling in my mouth that only seems to be satisfied when I eat a food, like sandwich, that fills my mouth. Sometimes, when I eat the food to satisfy my mouth hunger, I then spit the food out so I won't gain weight. Response Group 5: A Group 6 A. I don't feel any guilt or self-hate after I overeat. B. After I overeat, occasionally I feel guilt or self-hate. C. Almost all the time I experience strong guilt or self-hate after I overeat. Response Group 6: B Group 7 A. I don't lose total control of my eating when dieting even after periods when I overeat. B. Sometimes when I eat a forbidden food on a diet, I feel like I blew it and eat even more. C. Frequently, I have the habit of saying to myself, I've blown it now, why not go all the way, when I overeat on a diet. When that happens I eat more. D. I have a regular habit of starting a strict diets for myself but I break the diets by going on an eating binge. My life seems to be either a feast or famine. Response Group 7: A Group 8 A. I rarely eat so much food that I feel uncomfortably stuffed afterwards. B. Usually about once a month, I each such a quantity of food, I end up feeling very stuffed. C. I have regular periods during the month when I eat large amounts of food, either at mealtime or at snacks. D. I eat so much food that I regularly feel quite uncomfortable after eating and sometimes a bit nauseous. Response Group 8: A Group 9 A. My level of calorie intake does not go up very high or go down very low on a regular basis. B. Sometimes after I overeat, I will try to reduce my caloric intake to almost nothing to compensate for the excess calories I've eaten. C. I have a regular habit of overeating during the night. It seems that my routine is not to be hungry in the morning but overeat in the evening. D. In my adult years, I have had week-long periods where I practically starve myself. This follows periods when I overeat. It seems I live a life of either feast or famine. Response Group 9: B Group 10 A. I usually am able to stop eating when I want to. I know when enough is enough. B. Every so often, I experience a compulsion to eat which I can't seem to control. C. Frequently, I experience strong urges to eat which I seem unable to control, but at other times I can control my eating urges. D. I feel incapable of controlling urges to eat. I have a fear of not being able to stop eating voluntarily. Response Group 10: A Group 11 A. I don't have any problem stopping eating when I feel full. B. I usually can stop eating when I feel full but occasionally overeat leaving me feeling uncomfortably stuffed. C. I have a problem stopping eating once I start and usually I feel uncomfortably stuffed after I eat a meal. D. Because I have a problem not being able to stop eating when I want, I sometimes have to induce vomiting to relieve my stuffed feeling. Response Group 11: A Group 12 A. I seem to eat just as much when I'm with others, Family social gatherings as when I'm by myself. B. Sometimes, when I'm with other persons, I don't eat as much as I want to eat because I'm self-conscious about my eating. C. Frequently, I eat only a small amount of food when others are present, because I'm very embarrassed about my eating. D. I feel so ashamed about overeating that I pick times to overeat when I know no one will see me. I feel like a closet eater. Response Group 12: A Group 13 A. I eat three meals a day with only an occasional between meal snack. B. I eat 3 meals a day, but I also normally snack between meals. C. When I am snacking heavily, I get in the habit of skipping regular meals. D. There are regular periods when I seem to be continually eating, with no planned meals. Response Group 13: A Group 14 A. I don't think much about trying to control unwanted eating urges. B. At least some of the time, I feel my thoughts are pre-occupied with trying to control my eating urges. C. I feel that frequently I spend much time thinking about how much I ate or about trying not to eat anymore. D. It seems to me that most of my waking hours are pre-occupied by thoughts about eating or not eating. I feel like I'm constantly struggling not to eat. Response Group 14: A Group 15 A. I don't think about food a great deal. B. I have strong craving for food but they last only for brief periods of time. C. I have days when I can't seem to think about anything else but food. D. Most of my days seem to be pre-occupied with thoughts about food. I feel like I live to eat. Response Group 15: A Group 16 A. I usually know whether or not I'm physically hungry. I take the right portion of food to satisfy me. B. Occasionally, I feel uncertain about knowing whether or not I'm physically hungry. A these times it's hard to know how much food I should take to satisfy me. C. Even though I might know how many calories I should eat, I don't have any idea what is a normal amount of food for me. Response Group 16: A Binge Eating Score: 2 Score less than 17 Minimal Risk Score between 18-26 Moderate Risk Score between 27-46 High Risk Assessment & Plan Assessment & Plan (1) Depression: Code(s): F32.A - Depression, unspecified Qualifiers: Depression Type: major depressive disorder Major depression recurrence: recurrent Major depression episode severity: unspecified (2) Panic anxiety syndrome: Code(s): F41.0 - Panic disorder [episodic paroxysmal anxiety] Plan Pt seems to be stable from the mental health standpoint, however this provider will contact current MH providers to clarify diagnosis, medication and prognosis/concerns. Follow up in 4-5 weeks. Coding Level of Care Code Established Pt Psytx 45 mins (37990) Patient Type Established Diagnoses Depression F32.A Depression Type: major depressive disorder Major depression recurrence: recurrent Major depression episode severity: unspecified Panic anxiety syndrome F41.0 Time Spent (min) 45 Comment 10:30-11:15am.
== END 2022-12-16 12:09 | disposition home or self-care (01) ==
PROVIDERS: PCP Internal Medicine; Visit Provider Counselor Mental Health
DX: F32.A Depression, unspecified (principal); F41.0 Panic disorder [episodic paroxysmal anxiety]
CPT/HCPCS: 90834

== ENCOUNTER → 2022-12-16 09:26 | Outpatient (BNVA) | payer OTHER, SELFPAY | PROVIDERS: PCP Internal Medicine; Visit Provider Counselor Mental Health | DX: E66.01 Morbid (severe) obesity due to excess calories (principal); E11.69 Type 2 diabetes mellitus with other specified complication; Z71.3 Dietary counseling and surveillance | CPT/HCPCS: 97803 ==

== ENCOUNTER 2023-01-07 10:09 | Outpatient (AMB) | payer OTHER, SELFPAY ==
--- NOTE | 2023-01-07 11:07 | MHC.OFFVISWM ---
Intake VS Expanded 01/07/23 11:15 Height 5 ft 5 in Weight 270 lb BMI 44.9 BP 102/53 L Blood Pressure Location Lt brachial Blood Pressure Position Sitting Respiratory Rate 14 Pulse 67 Body Fat 105.8 Body Fat Percentage 39.2 Free Fat Mass 164.0 Muscle Mass 155.8 Visceral Mass 25.0 Water Mass 118.8 BMR 2,268 Intake Visit Reasons: (OV) F/U SWL Intake Note: Patient follow up for SWL. Relations Coordinator Required: Yes Relations Coordinator Name: office cmi Accompanied by: Self / Same As Patient Allergies No Known Allergies Allergy (Verified 01/07/23 11:06) Medication List - Last Reconciled 01/07/23 by KYLIE Larry amlodipine 10 mg PO DAILY carvedilol 3.125 mg PO BID cyanocobalamin (vitamin B-12) 500 mcg PO QAM ezetimibe 10 mg PO DAILY gabapentin 100 mg PO lisinopril 40 mg PO DAILY metformin ER 500 mg PO BID rosuvastatin 20 mg PO BEDTIME tamsulosin 0.4 mg PO DAILY thiamine HCl (vitamin B1) 100 mg PO QAM HPI HPI Comments History of Present Illness Details The patient is a pleasant 57 year old male who returns to the clinic for pre-operative surgical weight loss management. They were last seen in the office on 12/03/22, recorded weight at that time was 271 pounds, with a BMI of 42.4. Today's weight is 270 pounds and BMI is 42.3. There has been a weight loss of 15.4 pounds since initiating the surgical weight loss program on 07/26/22 with a total body weight loss of 5.3 %. Pre op work up completed as follows: SWL classes:? 12/14 BH appts: 12/16/22, needs f/u? ? RD appts: cleared 12/16/22 Labs: 08/12/22-Low B1, B12:449 H. 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 He is also scheduled for a home sleep study.? He did not get the sleep study from [place] that suggested that he no longer requires CPAP.? He is using Keto bar (15 gm protein) because he cannot find the zone perfect bars.? He was having low blood sugars and metformin was reduced to 500 mg BID and glipizide is no longer being taken and now his blood sugars are much better controlled with sugars 105-110.? Current meal plan includes: 3 Pure Protein shakes ([employer], [employer], [facility]) First shake? (1/2 scoop in 8 oz low fat unsweetened almond milk) at 8am-10am Second shake (1/2 scoop in 8 oz unsweetened almond milk) at? 11am-1pm Dinner at 4pm (10 forks of protein and 10 forks of salad/vegetables). 1 protein bar (Keto bars at [facility], [facility], or [employer]) at 5pm-7pm. Another shake with 1/2 scoop in 8 oz unsweetened almond milk at 8pm-10pm. Drinking 40 oz of water Current exercise plan includes: walking 4-5 x per [id number] minutes.? M/W/F PT.? Not yet joined [employer] Medical History Asthma Chronic back pain Depression with anxiety Diabetes mellitus type 2 in obese Essential hypertension Hyperlipidemia, unspecified Morbid obesity GERDA (obstructive sleep apnea) Surgical History H/O right knee surgery Hx of cholecystectomy Hx of oral surgery Family History Father Lung cancer Mother Cancer Liver failure Sister No problems noted. Brother No problems noted. Brother No problems noted. Social History Alcohol intake: never Patient Tobacco Use Status: Never used Tobacco Physical Exam Const General: healthy appearing and no acute distress Resp Effort & Inspection: normal respiratory effort Auscultation: clear to auscultation bilaterally Cardio Rate: regular rate Rhythm: regular rhythm GI Auscultation: normal bowel sounds Extrem General: Yes normal to inspection Assessment & Plan Assessment & Plan (1) Morbid obesity: Code(s): E66.01 - Morbid (severe) obesity due to excess calories Plan: continue plan encouraged to join [employer] and given paper again RTC 1 month f/u scheduled Coding Level of Care Code Est Pt Level 3 (34339) Diagnoses Morbid obesity E66.01
[2023-01-07 11:15] VITALS: BP 102/53; PULSE 67; RESP 14; BMI 44.9
== END 2023-01-07 11:45 | disposition home or self-care (01) ==
PROVIDERS: PCP Internal Medicine; Visit Provider Physician Assistant Surgical
DX: E66.01 Morbid (severe) obesity due to excess calories (principal)
CPT/HCPCS: 99213

== ENCOUNTER → 2023-01-07 10:09 | Outpatient (BNVA) | payer OTHER, SELFPAY | PROVIDERS: PCP Internal Medicine; Visit Provider Physician Assistant Surgical | DX: E66.01 Morbid (severe) obesity due to excess calories (principal); Z68.41 Body mass index [BMI] 40.0-44.9, adult | CPT/HCPCS: 99212 ==

== ENCOUNTER 2023-01-12 11:15 | Outpatient (REF) | payer OTHER, SELFPAY ==
[2023-01-12 15:01] LABS: Creatinine Urine 59.87 mg/dL
== END 2023-01-12 11:16 | disposition home or self-care (01) ==
LOC: HO.HHCL 11:15
PROVIDERS: Visit Provider Internal Medicine
DX: E11.65 Type 2 diabetes mellitus with hyperglycemia (principal)
CPT/HCPCS: 82043; 82570

== ENCOUNTER 2023-01-12 11:19 | Outpatient (REF) | payer OTHER, SELFPAY ==
--- NOTE | ~2023-01-12 | XR_ITS ---
EXAMINATION: XR SHOULDER, RIGHT CLINICAL INFORMATION: Acute pain of right shoulder x1 month. COMPARISON: None available. TECHNIQUE: AP external rotation, Grashey, scapular Y, and axillary views of the right shoulder. FINDINGS: The bones and soft tissues are normal. No fracture. Glenohumeral and acromioclavicular alignment is anatomic with normal joint space. No abnormal soft tissue calcifications. XR/XR shoulder RT min 2V IMPRESSION: Unremarkable right shoulder.
== END 2023-01-12 11:20 | disposition home or self-care (01) ==
LOC: HO.HHCX 11:19
PROVIDERS: Visit Provider Internal Medicine
DX: M25.511 Pain in right shoulder (principal)
CPT/HCPCS: 73030

== ENCOUNTER 2023-02-03 09:23 | Outpatient (AMB) | payer OTHER, SELFPAY ==
--- NOTE | 2023-02-03 11:32 | MHC.WMTHER ---
Intake Intake Visit Reasons: (OV) F/U BH Allergies No Known Allergies Allergy (Verified 02/03/23 09:49) PFSH Medical History Asthma Chronic back pain Depression with anxiety Diabetes mellitus type 2 in obese Essential hypertension Hyperlipidemia, unspecified Morbid obesity GERDA (obstructive sleep apnea) Surgical History Hx of cholecystectomy Hx of oral surgery H/O right knee surgery Family History Father Lung cancer Mother Cancer Liver failure Sister No problems noted. Brother No problems noted. Brother No problems noted. Social History Alcohol intake: never Patient Tobacco Use Status: Never used Tobacco Behavioral Health Assessment Weight Management Therapy Therapy Notes Details Pt is a 56 year old, , Korean-speaking male who presents for a follow up appointment. Pt presents discouraged as he gained weight, also he has not been exercising due to knee issues, but in general is ding well emotionally, trying to have a good attitude . Was able to go to the [facility] but didn't enrolled as they have no pool. Provider called pt's therapist, ross and sent a request for records on 12/16 but has not received anything yet. INTERVENTIONS: Discussed overall functioning and daily challenge. Repeated PHQ-9, processed scores. Solution-focused methods for identified needs. Also completed a mindfulness exercise to use when dealing with cravings or food thoughts. Provided client with information to use door to door transportation services with [facility]. RESPONSES: PT was engaged and received well recommendations. Mental status within normal limits suggesting functioning is not impaired. PLAN: Pt is cleared today and no f/up is required but he can request one if needs additional support. Presenting Concerns Referral Source [facility] Provider. Reason for referral Completion of behavioral health assessment as part of process for weight-loss surgery. Precipitating Event Obesity, diabetes, HTN, body aches, knee problem. He wants to be healthy. Living Situation Current Living Situation Rent At risk of losing current housing? No Satisfied with current living situation? Yes Comments PT lives alone. Food/Weight/Diet Expectations of change PT wants to be at his healthy weight. one of the Goals is to lose 10% of his weight before surgery, which is about 28 lbs. Ultimate weight goal: 255 lbs. before surgery History/Relationship with food Pt reports he used to find comfort in food, when depressed he used to eat a lot. But in general he loves food and is aware that his diet is hispanic0-style, mainly composed by fried foods, multiple carbs in 1 meal and limited physical activity. Used to eat big portions, a lot of bread. History/Relationship with weight PT reports he started gaining weight at age 15. Weight got out of control on his 30's. History/Relationship with dieting smaller portions, healthy options. Binge Eating Do you frequently eat large amounts of food in short periods of time, not feeling physically hungry? No Do you feel out of control when you eat a large amount of food in a short period of time? No Do you eat large amounts of food rapidly and typically alone? No Night Eating Do you wake up at least once during the night to eat? No If you wake up in the night, do you find that it is necessary to eat something in order to fall back asleep? No Do you have little or no appetite in the morning and feel very hungry in the evening, often overeating between dinner and when you go to bed? No Social History Family history and relationship PT is single. 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 He had 1 daughter who days after . PT has 3 siblings who live in [place]. [place] he had a hard childhood, raised by paternal grandmother. His Mother was forced to his father, they and his father took his custody but since dad had to work overseas, grandparents raised him. Parental/Familial geriatric psychiatrist obligations None. Developmental history and status Slow learner , had behavioral issues. Social support An uncle who lives close. He has a niece who help him with appointments and is his [employer]. Community support Providers Adventist/Spirituality Spiritism but doesn't attend [facility]. Cultural/Ethnic information PT was born in [place]. Has lives in multiple states and moved back to in [facility] one year ago. Legal Involvement and History Current or historical involvement with the legal system? None. Education Highest grade completed 9th grade. Preferred learning style Learn by doing and Visual Currently enrolled in educational program? No Interested in further educational program? No Educational Interests/Skills None identified. Employment Employment Status Retired Wants help to find employment? No Meaningful activities Watch tv, read the bible, visit brother/friends. Financial Situation Describe current financial situation Occasional struggle Financial assistance? Food [place] Service Service? No Mental Health and Addiction Treatment Current/Past substance abuse? No Current/Past addictive behavior concerns? No Psychiatric history Pt attends counseling and sees a prescriber at [facility]. Sees Ross Feldman as therapist. [phone] [id number]. Takes: Cymbalta 60mg 1 at day, klonopin 0.5mg 1 as needed. Reports he suffers from depression and has panic attacks. States he has never been hospitalized for MH and/or in crisis. Denies any hx of SI and or other concern around self/other-harm. Medical and Physical Health Summary Additional Medical History not covered in history None reported. Sexual History concerns None reported Physical exam in the last year? Yes Pain Screening Current pain? Yes Pain in the last few months? Yes Medications Is the patient compliant with medications? Yes Does the patient have Ford Guardian in place? Not applicable Does the patient use complimentary health approaches? No Trauma/Abuse History History of trauma? Yes (Multiple losses in his life, hard childhood.) Questionnaires PHQ-9 Over the last 2 weeks, how often have you been bothered by any of the following problems? 1. Little interest or pleasure in doing things: not at all 2. Feeling down, depressed, or hopeless: not at all 3. Trouble falling or staying asleep, or sleeping too much: several days 4. Feeling tired or having little energy: not at all 5. Poor appetite or overeating: several days (in the evenings.) 6. Feeling bad about yourself - or that you are a failure or have let yourself or your family down: not at all 7. Trouble concentrating on things, such as reading the newspaper or watching television: not at all 8. Moving or speaking so slowly that other people could have noticed. Or the opposite - being so fidgety or restless that you have been moving around a lot more than usual: not at all 9. Thoughts that you would be better off or of hurting yourself in some way: not at all Total score: 2 Depression Screening Interpretation: Positive 57701 - PHQ-9 Billing: Yes Source: Developed by Drs. Maldonado Tavera, Sravani Lebron, Lyndon Lloyd and colleagues, with an educational rosi from [employer]. Assessment & Plan Assessment & Plan (1) Depression: Code(s): F32.A - Depression, unspecified (2) Panic anxiety syndrome: Code(s): F41.0 - Panic disorder [episodic paroxysmal anxiety] Plan Pt has been cleared from the standpoint. At this time there is no need to f/up with me but he has been advised to reach us for support if in need. Coding Level of Care Code Established Pt Psytx 45 mins (35068) Patient Type Established Diagnoses Depression F32.A Panic anxiety syndrome F41.0 Time Spent (min) 45
== END 2023-02-03 12:15 | disposition home or self-care (01) ==
PROVIDERS: PCP Internal Medicine; Visit Provider Counselor Mental Health
DX: F32.A Depression, unspecified (principal); F41.0 Panic disorder [episodic paroxysmal anxiety]
CPT/HCPCS: 90834

== ENCOUNTER 2023-02-03 09:23 | Outpatient (AMB) | payer OTHER, SELFPAY ==
--- NOTE | 2023-02-03 09:44 | MHC.OFFVISWM ---
Intake VS Expanded 02/03/23 09:53 Height 5 ft 7 in Weight 275 lb 9.6 oz BMI 43.2 BP 118/59 L Blood Pressure Location Rt brachial Blood Pressure Position Sitting Pulse 70 Pulse Source Pulse Oximeter Temp 97.1 F Temperature Source Temporal Artery Scan Pulse Oximetry 98 Oxygen Delivery Method Room Air Body Fat 107.0 Body Fat Percentage 38.8 Free Fat Mass 168.6 Muscle Mass 160.2 Visceral Mass 26.0 Water Mass 125.2 BMR 2,335 Intake Visit Reasons: (OV) F/U SWL Cook Supervisor Required: No Cook Supervisor Name: office cmi Allergies No Known Allergies Allergy (Verified 02/03/23 09:49) Medication List - Last Reconciled 02/03/23 by KYLIE Larry amlodipine 10 mg PO DAILY carvedilol 3.125 mg PO BID cyanocobalamin (vitamin B-12) 500 mcg PO QAM ezetimibe 10 mg PO DAILY gabapentin 100 mg PO lisinopril 40 mg PO DAILY metformin ER 500 mg PO BID rosuvastatin 20 mg PO BEDTIME tamsulosin 0.4 mg PO DAILY thiamine HCl (vitamin B1) 100 mg PO QAM HPI HPI Comments History of Present Illness Details The patient is a pleasant 57 year old male who returns to the clinic for pre-operative surgical weight loss management. They were last seen in the office on 01/07/23, recorded weight at that time was 270 pounds, with a BMI of 42.3. Today's weight is 275.6 pounds and BMI is 43.2. There has been a weight loss of 10.4 pounds since initiating the surgical weight loss program on 07/26/22 with a total body weight loss of 3.6 %. Pre op work up completed as follows: SWL classes:? 12/14 BH appts: 12/16/22, needs f/u? ? RD appts: cleared 12/16/22 Labs: 08/12/22-Low B1, B12:449 H. 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 He is also scheduled for a home sleep study.? He did not get the sleep study from [place] that suggested that he no longer requires CPAP.? He is using Keto bar (15 gm protein) because he cannot find the zone perfect bars.? He states he fell 1 week ago and hurt his right knee. He was having low blood sugars and metformin was reduced to 500 mg BID and glipizide is no longer being taken and now his blood sugars are much better controlled with sugars 105-110.? Current meal plan includes: 3 Pure Protein shakes ([employer], [employer], [facility]) First shake? (1/2 scoop in 8 oz low fat unsweetened almond milk) at 8am-10am Second shake (1/2 scoop in 8 oz unsweetened almond milk) at? 11am-1pm Dinner at 4pm (10 forks of protein and 10 forks of salad/vegetables). 1 protein bar (Keto bars at [facility], [facility], or [employer]) at 5pm-7pm. Another shake with 1/2 scoop in 8 oz unsweetened almond milk at 8pm-10pm. Drinking 40 oz of water Current exercise plan includes: none in last week after his fall. Joined [employer] but no pool. Given info for [employer]? [facility] Medical History Asthma Chronic back pain Depression with anxiety Diabetes mellitus type 2 in obese Essential hypertension Hyperlipidemia, unspecified Morbid obesity GERDA (obstructive sleep apnea) Surgical History Hx of cholecystectomy Hx of oral surgery H/O right knee surgery Family History Father Lung cancer Mother Cancer Liver failure Sister No problems noted. Brother No problems noted. Brother No problems noted. Social History Alcohol intake: never Patient Tobacco Use Status: Never used Tobacco Review of Systems Const All systems reviewed & are unremarkable except as noted in HPI and below Physical Exam Vital Signs: Last Vital Signs Temp 97.1 F 02/03/23 09:53 Pulse 70 02/03/23 09:53 BP 118/59 L 02/03/23 09:53 Pulse Ox 98 02/03/23 09:53 Oxygen Delivery Method Room Air 02/03/23 09:53 BMI result Body Mass Index 43.2 Const General: healthy appearing and no acute distress Resp Effort & Inspection: normal respiratory effort Auscultation: clear to auscultation bilaterally Cardio Rate: regular rate Rhythm: regular rhythm GI Auscultation: normal bowel sounds Extrem General: Yes normal to inspection Assessment & Plan Assessment & Plan (1) Morbid obesity: Code(s): E66.01 - Morbid (severe) obesity due to excess calories Plan: Will follow plan exactly join [employer] discussed need for more PT given recent fall and he will contact his PCP Discussed the need to be able to make progress or at the very least text me weekly. if no progress at next appt in 1 month will break from program Coding Level of Care Code Est Pt Level 3 (88087) Diagnoses Morbid obesity E66.01
[2023-02-03 09:53] VITALS: BP 118/59; PULSE 70; TEMP 36.2; O2SAT 98; BMI 43.2
== END 2023-02-03 10:12 | disposition home or self-care (01) ==
PROVIDERS: PCP Internal Medicine; Visit Provider Physician Assistant Surgical
DX: E66.01 Morbid (severe) obesity due to excess calories (principal)
CPT/HCPCS: 99213

== ENCOUNTER → 2023-02-03 09:23 | Outpatient (BNVA) | payer OTHER, SELFPAY | PROVIDERS: PCP Internal Medicine; Visit Provider Physician Assistant Surgical | DX: E66.01 Morbid (severe) obesity due to excess calories (principal); Z68.41 Body mass index [BMI] 40.0-44.9, adult | CPT/HCPCS: 99212 ==

== ENCOUNTER 2023-04-22 09:08 | Outpatient (AMB) | payer OTHER, SELFPAY ==
--- NOTE | 2023-04-22 10:04 | A.OFFVIS_ITS ---
Intake VS Expanded 04/22/23 10:15 Blood Pressure Location Rt brachial Blood Pressure Position Sitting Pulse 68 Pulse Source Pulse Oximeter Temp 97.7 F Temperature Source Temporal Artery Scan Pulse Oximetry 98 Oxygen Delivery Method Room Air Height 5 ft 7 in Weight 280 lb BMI 43.8 Body Fat % 42.8 Body Fat Mass 120.0 Fat Free Mass 160.0 Visceral Fat Rating 15.0 Body Water % 40.6 Body Water Mass 113.8 Muscle Mass/Score 152.2 Basal Metabolic Rate/Score 2,237 Intake Visit Reasons: (OV) F/U SWL Senior [employer] Developer Required: Yes Senior [employer] So[employer] Developer Name: office cmi Allergies No Known Allergies Allergy (Verified 04/22/23 10:13) Medication List - Last Reconciled 04/22/23 by KYLIE Larry amlodipine 10 mg PO DAILY carvedilol 3.125 mg PO BID cyanocobalamin (vitamin B-12) 500 mcg PO QAM ezetimibe 10 mg PO DAILY gabapentin 100 mg PO lisinopril 40 mg PO DAILY metformin ER 500 mg PO BID rosuvastatin 20 mg PO BEDTIME tamsulosin 0.4 mg PO DAILY thiamine HCl (vitamin B1) 100 mg PO QAM HPI HPI Comments History of Present Illness Details The patient is a p leboaz 57 year ol d male who returns to the clinic for pre-operative katey gical weight loss management. They were last seen in the office on 02/03, recorded maryam ht at that time wa s 275.6 pounds, wi th a BMI of 43.2. Today's weight is 280.6 pounds and BMI is 43.9. Ther e has been a weigh t loss of 5.4 poun ds since initiatin g the surgical [facility] ght loss program o n 07/26/22 with a t otal body weight l oss of 1.8 %. Pre op work up comple rosa as follows: SW L classes:? 12/14 BH appts: 12/16/22, n eeds f/u? ? RD jasen ts: cleared 3 Labs: 08/12/22-Low B1, B12:449 H. py denice: 08/04/22-neg CXR: 09/01/22-nad E KG: TTE for hx CHF 03/05/22 EF 45-50 % with grade 1 di astolic dysfxn, f/ u Dr Aj J an and felt non -ischemic w recc f /u 1 year ABD U/S: 09/23/22-horseshoe kidney, fatty clyde er UGI: 09/23/22-no rmal The patient reports he is comp leted PT and he s aw Ortho in [facility] [place], for knee in [facility] and was t old he needs R TKr but this may not be done until next year.? He is also scheduled for a h ome sleep study.? He did not get the sleep study from [place] that chai sted that he no lo nger requires CPAP .? He is using Ket o bar (15 gm prote in) because he can not find the zone perfect bars.? He has not been comm unicating by text or sending weight measurements. He has been having le ft knee pain since January althoug h he has not garcia d his Ortho specia list. He states h e has not been abl e to exercise and continues to walk with a SPC. He st ates he is going t o follow up with o rtho and then call us in the future when he can commit to the weight los s program? Curren t meal plan includ es: 3 Pure Protei n shakes ([employer], [employer], [facility])First s ashanti? (1/2 scoop i n 8 oz low fat uns weetened almond mi lk) at 8am-10am Se cond shake (1/2 sc oop in 8 oz unswee tened almond milk) at? 11am-1pm Dinn er at 4pm (10 fork s of protein and 1 0 forks of salad/v egetables). 1 pro tein bar (Keto bar s at [employer], [facility], or [employer]) at 5pm-7 pm. Another shake with 1/2 scoop in 8 oz unsweetened a lmond milk at 8pm- 10pm. Drinking 40 oz of water Curr ent exercise plan includes: none in last week after hi s fall. Joined [employer] but no pool. G evelyn info for [employer].? PFSH Medical History Asthma Chronic back pain Depression with anxiety Diabetes mellitus type 2 in obese Essential hypertension Hyperlipidemia, unspecified Morbid obesity GERDA (obstructive sleep apnea) Surgical History Hx of cholecystectomy Hx of oral surgery H/O right knee surgery Family History Father Lung cancer Mother Cancer Liver failure Sister No problems noted. Brother No problems noted. Brother No problems noted. Social History Alcohol intake: never Patient Tobacco Use Status: Never used Tobacco Physical Exam Const General: healthy appearing and no acute distress Limitations: ambulation with cane Resp Effort & Inspection: normal respiratory effort Auscultation: clear to auscultation bilaterally Cardio Rate: regular rate Rhythm: regular rhythm GI Auscultation: normal bowel sounds Extrem General: Yes normal to inspection Assessment & Plan Assessment & Plan (1) Morbid obesity: Code(s): E66.01 - Morbid (severe) obesity due to excess calories Plan: Given patient's ongoing orthopedic limitations, he is going to address these with his orthopedic doctor. He is going to take a break from the program at this time however he may return at any point in the future. He will continue his current meal plan and water intake. I again encouraged him to join the gym that has the pool so that he may walk in the pool which will not cause him any significant joint pain. He was encouraged to do this in the shallow end is he is unable to swim. Coding Level of Care Code Est Pt Level 3 (17543) Diagnoses Morbid obesity E66.01
[2023-04-22 10:15] VITALS: PULSE 68; TEMP 36.5; O2SAT 98; BMI 43.8
== END 2023-04-22 10:42 | disposition home or self-care (01) ==
PROVIDERS: PCP Internal Medicine; Visit Provider Physician Assistant Surgical
DX: E66.01 Morbid (severe) obesity due to excess calories (principal)
CPT/HCPCS: 99213

== ENCOUNTER → 2023-04-22 09:08 | Outpatient (BNVA) | payer OTHER, SELFPAY | PROVIDERS: PCP Internal Medicine; Visit Provider Physician Assistant Surgical | DX: E66.01 Morbid (severe) obesity due to excess calories (principal); Z68.41 Body mass index [BMI] 40.0-44.9, adult | CPT/HCPCS: 99212 ==

== ENCOUNTER → 2023-05-06 11:23 | Outpatient (REF) | payer OTHER, SELFPAY ==
--- NOTE | 2023-05-06 11:26 | CA_ITS ---
Transthoracic Echocardiogram Patient (Last, First, Middle): Jon Vazquez, Gender: Male Date of : 1965 Age: 57 Procedure Date: 05/06/2023 Procedure Type: Transthoracic Echocardiogram Location: OP Height: 170.18 cm Weight: 127.92 kg BSA: 2.34 m2 Heart Rate: 60 bpm BP: 120 / 50 mmHg Manager Php: ROGER LOZANO Referring MD: Amauri Aj MD Symptoms: I42.8 - Other cardiomyopathies Study Quality: Fair/Contrast ECG Rhythm: Sinus Conclusions: - LVEF difficult to assess even with contrast. Suspect >50%. - No obvious valvular pathology seen on this study. Findings Procedure Information Contrast agent, definity, is being given per protocol without apparent complications. Left Ventricle Normal left ventricular cavity size. There is mildly increased left ventricular wall thickness. Diastolic function is normal for age. LVEF difficult to assess even with contrast. Suspect >50%. Right Ventricle Normal right ventricular cavity size and systolic function. Atria Both atria are normal in size. Aortic Valve There is a normal trileaflet aortic valve. There is no aortic valve stenosis. There is no aortic valve regurgitation. Mitral Valve The mitral valve appears normal. There is trace mitral valve regurgitation. There is no mitral valve stenosis. Pulmonic Valve The pulmonic valve is likely normal. Tricuspid Valve There is trace tricuspid valve regurgitation. There is no evidence of pulmonary hypertension. Great Vessels The asc aorta is normal in size. Venous The inferior vena cava is normal in size and collapses greater than 50% with inspiration. Pericardium/Pleural There is no evidence of pericardial effusion. Prior Study Comparison Changes noted compared to prior study dated: 03/05/2022. No clear wall motion abnormality identified. Recommendations, Care & Conclusions No obvious valvular pathology seen on this study. Measurements 2D Linear Measurements IVSd: 1.18 0.6-0.9/0.6-1.0 cm LVIDd: 4.97 3.9-5.3/4.2-5.9 cm LVIDd Index: 2.12 2.4-3.2/2.2-3.1 cm/m2 LVIDs: 3.26 2.0-3.6 cm LVPWd: 1.19 0.7-1.1 cm LA Diam: 5.10 2.7-3.8/3.0-4.0 cm LAIDs Index: 2.18 1.5-2.3 cm/m2 LV Mass: 283.59 67-162/88-224 g LV Mass Index: 121.19 43-95/49-115 g/m2 LVOT Diam: 2.20 3.0+(-)1.3 cm 2D Systolic Function EF 4C: 49.00 >55% EF 2C: 44.30 >55% EF BiP: 47.90 >55% Mitral Valve MV Pk E: 0.71 MV PK A: 0.89 MV Decel Time: 222.00 E/A: 0.80 E'Lateral: 8.81 E'Medial: 5.77 E/E' Med: 12.40 E/E' Lat: 8.10 PHT: 65.00 MVA PHT: 3.38 Decel [place]: 3.21 Aortic Valve AoV Pk Chong: 1.42 AoV Mn Chong: 1.01 AoV VTI: 0.33 AoV Pk Grad: 8.00 Aov Mn Grad: 5.00 GIGI Cont.VTI: 2.13 LVOT LVOT Pk Chong: 0.76 LVOT Mn Chong: 0.54 LVOT VTI: 0.19 LVOT Pk Grad: 2.00 LVOT Mn Grad: 1.00 LVOT Diam: 2.20 LVOT Area: 3.80 Diastolic Function MV Pk E: 0.71 MV Pk A: 0.89 E/A: 0.80 E'Medial: 5.77 E/E' Med: 12.40 E' Laterial: 8.81 E/E' Lat: 8.10 Right Ventricle TAPSE (mm): 27.20 TVS' Chong: 10.60 Tricuspid Valve RA Press: 3.00 Great Vessels Aorta Sinus of Valsalva: 3.50 2.0-3.5 cm Ao Asc: 3.40 2.1-3.4 cm Updated in Other Vendor System with Status of Final Amauri Aj MD electronically signed on 05/07/2023 2:23:52 PM with status of Final
== END ==
LOC: HO.CARD 11:23
PROVIDERS: PCP Internal Medicine; Visit Provider Internal Medicine
DX: I42.8 Other cardiomyopathies (principal)
CPT/HCPCS: 93306; Q9957

== ENCOUNTER → 2023-05-06 11:26 | Outpatient (BNV) | payer OTHER, SELFPAY | PROVIDERS: PCP Internal Medicine; Visit Provider Internal Medicine | DX: I42.8 Other cardiomyopathies (principal) | CPT/HCPCS: 93306 ==

== ENCOUNTER 2023-05-17 09:35 | Outpatient (AMB) | payer OTHER, SELFPAY ==
[2023-05-17 10:11] VITALS: BP 110/52; PULSE 60; BMI 45.2
--- NOTE | 2023-05-17 10:11 | A.OFFVIS_ITS ---
Intake Vital Signs 05/17/23 10:11 Height 5 ft 7 in Weight 288 lb 12.889 oz BMI 45.2 BP 110/52 L Blood Pressure Location Lt brachial Position Sitting Pulse 60 Intake Visit Reasons: 1 year fu after echo Intake Note: 1 yr f/up pt its feeling fine Machine Tool Mechanic Required: Yes Machine Tool Mechanic Name: tang Brooks [id number] Information Interpreted: clinical only Accompanied by: Self / Same As Patient Allergies No Known Allergies Allergy (Verified 04/22/23 10:13) Medication List - Last Reconciled 05/17/23 by Amauri Aj MD amlodipine 10 mg PO DAILY carvedilol 3.125 mg PO BID cyanocobalamin (vitamin B-12) 500 mcg PO QAM ezetimibe 10 mg PO DAILY gabapentin 100 mg PO lisinopril 40 mg PO DAILY metformin ER 500 mg PO BID rosuvastatin 20 mg PO BEDTIME tamsulosin 0.4 mg PO DAILY thiamine HCl (vitamin B1) 100 mg PO QAM HPI HPI Comments History of Present Illness Details Jon returns for follow-up. In the past, he was seen regarding possible congestive heart failure. He had relocated from [place]. Listed to have CHF in his diagnosis. He is morbidly obese. Walks with a cane. Within limits of his activity, denies any symptoms like angina or shortness of breath or leg swelling or in fact anything cardiac related at all. Listed to have multiple medical co-morbidities including diabetes, hypertension, dyslipidemia, obstructive sleep apnea among others. Overall, no new issues since last seen. He seems to be getting along fine. Main concern is still weight and some arthritic symptoms in his knees. [facility] Medical History Asthma Chronic back pain Depression with anxiety Diabetes mellitus type 2 in obese Essential hypertension Hyperlipidemia, unspecified Morbid obesity GERDA (obstructive sleep apnea) Surgical History Hx of cholecystectomy Hx of oral surgery H/O right knee surgery Family History Father Lung cancer Mother Cancer Liver failure Sister No problems noted. Brother No problems noted. Brother No problems noted. Social History Alcohol intake: never Patient Tobacco Use Status: Never used Tobacco Review of Systems Const Reports chills, Reports fatigue, Reports fever(s), Reports frequent falls, Reports weakness, Reports weight gain and Reports weight loss ENT Reports dizziness Card Reports chest pain, Reports leg edema, Reports lightheadedness, Reports palpitations, Reports dyspnea and Reports dyspnea on exertion Resp Reports cough, Reports dyspnea and Reports dyspnea on exertion GI Reports hematochezia Musc Reports abnormal gait, Reports muscle weakness, Reports numbness, Reports radiating pain into limb and Reports tingling Neuro Reports abnormal gait, Reports dizziness, Reports frequent falls, Reports num bness, Reports tingling and Reports weakness Endo Reports fatigue and Reports palpitations Physical Exam Vital Signs: Last Vital Signs Pulse 60 05/17/23 10:11 BP 110/52 L 05/17/23 10:11 BMI result Body Mass Index 45.2 Const General: comfortable and no acute distress Orientation/consciousness: patient oriented x3 HEENT Other: Unremarkable Head: Yes normal to inspection Neck Neck: Yes normal visual inspection Chest Chest palpation & inspection: normal inspection of the chest Resp Auscultation: clear to auscultation bilaterally Cardio Palpation: normal PMI Heart sounds: S1 normal heart sound present, S2 normal heart sound present, no gallops, no murmurs and no rubs GI Palpation (GI): Soft to palpation Back/Spine/Pelvis Other: unremarkable Skin General skin exam: no rashes or lesions noted Neuro General: patient oriented x3 Extrem General: Yes normal to inspection Psych Mental Status: mental status grossly normal Office Procedures EKG Details: EKG with sinus rhythm at 60/Min; no significant ST-T changes and otherwise [place]remarkable[place] [id number], Complete Assessment & Plan Assessment & Plan (1) NICM (nonischemic cardiomyopathy): Code(s): I42.8 - Other cardiomyopathies Plan: In the echocardiogram from 2021, LVEF 45-50%. There is description of possible wall motion abnormality in the distal lateral wall and apical wall. In the repeat echocardiogram from last month, LVEF was very difficult to assess in spite of contrast. Suspected LVEF greater than 50%. Normal diastolic function otherwise unremarkable. Myocardial perfusion imaging shows no evidence of ischemia-from [place]; 09/2020. Clinically, he has got absolutely no chest pains or in fact any cardiac symptoms at all. Hence we will pursue no further testing at this time. (2) Morbid obesity: Code(s): E66.01 - Morbid (severe) obesity due to excess calories Plan: Obesity is likely the main contributing factor to a lot of his issues. He is well aware of this and seems that he is going to bariatric as well. Coding Level of Care Code Est Pt Level 3 (11762) Diagnoses NICM (nonischemic cardiomyopathy) I42.8 Morbid obesity E66.01 CPT Codes EKG - CPT: 71726-[id number], Complete ([id number])
== END 2023-05-17 10:43 | disposition home or self-care (01) ==
PROVIDERS: PCP Internal Medicine; Visit Provider Internal Medicine
DX: I42.8 Other cardiomyopathies (principal); E66.01 Morbid (severe) obesity due to excess calories
CPT/HCPCS: 93010; 99213

== ENCOUNTER → 2023-05-17 09:35 | Outpatient (BNVA) | payer OTHER, SELFPAY | PROVIDERS: Visit Provider Internal Medicine | DX: I42.8 Other cardiomyopathies (principal); E66.01 Morbid (severe) obesity due to excess calories; Z68.42 Body mass index [BMI] 45.0-49.9, adult | CPT/HCPCS: 93005; 99212 ==

== ENCOUNTER 2023-06-16 10:09 | Outpatient (AMB) | payer OTHER, SELFPAY ==
[2023-06-16 10:13] VITALS: BMI 45.1
--- NOTE | 2023-06-16 10:13 | MHC.OFFVIS ---
Intake Vital Signs 06/16/23 10:13 Height 5 ft 7 in Weight 288 lb BMI 45.1 Intake Visit Reasons: OV - B/L Knee OA Intake Note: Jon is a 57 year old male who presents today for a follow up of bilateral knee OA, R>L, S/P right meniscectomy in ~2012 At his last visit on 12/10/22 his right knee was injected and TKA was discussed but he must get his BMI under 40. He has since gained weight. He is interested in having repeat injection in bilateral knees, he is diabetic Allergies No Known Allergies Allergy (Verified 06/16/23 10:32) HPI OV - B/L Knee OA HPI Details Jon is a 57 year old Diabetic man who returns with complaints of bilateral knee OA pain. He was last seen, and his right knee was injected, on 12/10/22. He complains of pain with daily & WB activities, worse with walking or standing from a seated position. At last appointment surgery was discussed, but his BMI was >40.0 and he was not a good surgical candidate. His BMI has since increased since he was last seen. He has a hx of CHF, and was following with Bariatrics at last appointment. [facility] Medical History Asthma Chronic back pain Depression with anxiety Diabetes mellitus type 2 in obese Essential hypertension Hyperlipidemia, unspecified Morbid obesity GERDA (obstructive sleep apnea) Surgical History Hx of cholecystectomy Hx of oral surgery H/O right knee surgery Family History Father Lung cancer Mother Cancer Liver failure Sister No problems noted. Brother No problems noted. Brother No problems noted. Social History Alcohol intake: never Patient Tobacco Use Status: Never used Tobacco Review of Systems Const All systems reviewed & are unremarkable except as noted in HPI and below Physical Exam Vital Signs: BMI result Body Mass Index 45.1 Const General: no acute distress, alert and awake Orientation/consciousness: patient oriented x3 HEENT Head: Yes normocephalic and Yes atraumatic Eyes EOM: EOMs intact bilaterally Resp Effort & Inspection: normal respiratory effort and able to speak in complete sentences Cardio Jugular venous distension: no JVD Skin General skin exam: turgor normal Rashes: no rashes Neuro General: patient oriented x3 Extrem Other: Morbidly obese TTP medial compartment bilateral knees Psych Appearance: grossly normal Affect: normal affect Attitude: cooperative Office Procedures Joint Injection/Drain Joint Injection/Drain Details: Injected 1 mL of Decadron and 3 mL 1% lidocaine and 3 mL of 0.25% Marcaine. Site was prepped using aseptic technique. Patient tolerated the procedure well. Primary Site: right knee Approach Used: anterolateral Coding - Large joint Procedure code (CPT) selection complete Assessment & Plan Assessment & Plan (1) Osteoarthritis of left knee: Code(s): M17.12 - Unilateral primary osteoarthritis, left knee (2) Osteoarthritis of right knee: Code(s): M17.11 - Unilateral primary osteoarthritis, right knee Plan: Injected right knee. Warned of the hyperglycemic effects of steroids. Not currently a surgical candidate (3) Morbid obesity: Code(s): E66.01 - Morbid (severe) obesity due to excess calories (4) Diabetes mellitus type 2 in obese: Code(s): E11.69 - Type 2 diabetes mellitus with other specified complication; E66.9 - Obesity, unspecified Plan: Warned of hyperglycemic effects of steroids Plan Prepared for Tommy Bhardwaj MD by Lamonte Romero, rn medical inpatient services, on 06/16/23 at 10:18 AM, EST. Coding Level of Care Code Est Pt Level 4 (05978) Diagnoses Osteoarthritis of left knee M17.12 Osteoarthritis of right knee M17.11 Morbid obesity E66.01 Diabetes mellitus type 2 in obese E11.69; E66.9 CPT Codes Coding - Large joint: 24936 - Large joint ([id number])
== END 2023-06-16 11:04 | disposition home or self-care (01) ==
PROVIDERS: PCP Internal Medicine; Visit Provider Orthopaedic Surgery
DX: M17.0 Bilateral primary osteoarthritis of knee (principal); E66.01 Morbid (severe) obesity due to excess calories; E11.69 Type 2 diabetes mellitus with other specified complication; E66.9 Obesity, unspecified
CPT/HCPCS: 20610; 99213

== ENCOUNTER → 2023-06-16 10:09 | Outpatient (BNVA) | payer OTHER, SELFPAY | PROVIDERS: PCP Internal Medicine; Visit Provider Orthopaedic Surgery | DX: M17.0 Bilateral primary osteoarthritis of knee (principal); E66.01 Morbid (severe) obesity due to excess calories; E11.69 Type 2 diabetes mellitus with other specified complication; Z68.42 Body mass index [BMI] 45.0-49.9, adult | CPT/HCPCS: 20610; 99212; J0665; J1100 ==

== ENCOUNTER 2023-09-15 10:26 | Outpatient (AMB) | payer OTHER, SELFPAY ==
--- NOTE | 2023-09-15 11:10 | A.OFFVIS_ITS ---
Vital Signs 09/15/23 11:12 Height 5 ft 7 in Weight 288 lb BMI 45.1 Intake Visit Reasons: OV - B/L Knee OA last injection 06/16/23 Intake Note: Jon is a 57 year old male who presents today for a follow up of bilateral knee OA, R>L, S/P right meniscectomy in ~2012 At his last visit on06/16/24 his right knee was injected. TKA was previously discussed but he must get his BMI under 40 Allergies No Known Allergies Allergy (Verified 06/16/23 10:32) HPI HPI OV - B/L Knee OA last injection 06/16/23: Details: Jon is a 57 year old male who presents today for a follow up of bilateral knee OA, R>L, S/P right meniscectomy in ~2012 At his last visit on06/16/23 his right knee was injected. TKA was previously discussed but he must get his BMI under 40. This prior injection was helpful for his right knee. Today comes in complaining more of left knee pain however. [facility] Medical History Asthma Chronic back pain Depression with anxiety Diabetes mellitus type 2 in obese Essential hypertension Hyperlipidemia, unspecified Morbid obesity GERDA (obstructive sleep apnea) Surgical History Hx of cholecystectomy Hx of oral surgery H/O right knee surgery Family History Father Lung cancer Mother Cancer Liver failure Sister No problems noted. Brother No problems noted. Brother No problems noted. Social History Alcohol intake: never Patient Tobacco Use Status: Never used Tobacco Physical Exam Vital Signs: BMI result Body Mass Index 45.1 Const Nutritional Appearance: obese (BMI 45) Extrem Other: There is tenderness to palpation medial compartment left greater than right. Varus malalignment bilateral knees with varus thrust bilaterally Office Procedures Joint Injection/Drain Joint Injection/Drain Details: Injected 1 mL of Decadron and 3 mL 1% lidocaine and 3 mL of 0.25% Marcaine. Site was prepped using aseptic technique. Patient tolerated the procedure well. Primary Site: left knee Approach Used: anterolateral Coding 07972 - Large joint Procedure code (CPT) selection complete Assessment & Plan Assessment & Plan (1) Osteoarthritis of left knee: Code(s): M17.12 - Unilateral primary osteoarthritis, left knee Category: Medical Plan: I injected his left knee today. He has severe varus deformity. He needs to work on weight loss. He understands this. (2) Osteoarthritis of right knee: Code(s): M17.11 - Unilateral primary osteoarthritis, right knee Category: Medical Plan: His right knee is feeling reasonable today and we deferred on injections. He will continue to work on weight loss. (3) Diabetes mellitus type 2 in obese: Code(s): E11.69 - Type 2 diabetes mellitus with other specified complication; E66.9 - Obesity, unspecified Category: Medical Plan: I informed him of the hyperglycemic effects of steroids. Coding Level of Care Code Est Pt Level 4 (35307) Diagnoses Osteoarthritis of left knee M17.12 Osteoarthritis of right knee M17.11 Diabetes mellitus type 2 in obese E11.69; E66.9 CPT Codes Coding - Large joint: 61970 - Large joint ([id number])
[2023-09-15 11:12] VITALS: BMI 45.1
== END 2023-09-15 11:32 | disposition home or self-care (01) ==
PROVIDERS: PCP Internal Medicine; Visit Provider Orthopaedic Surgery
DX: M17.0 Bilateral primary osteoarthritis of knee (principal); E11.69 Type 2 diabetes mellitus with other specified complication; E66.9 Obesity, unspecified
CPT/HCPCS: 20610; 99213

== ENCOUNTER → 2023-09-15 10:26 | Outpatient (BNVA) | payer OTHER, SELFPAY | PROVIDERS: PCP Internal Medicine; Visit Provider Orthopaedic Surgery | DX: M17.0 Bilateral primary osteoarthritis of knee (principal); E11.69 Type 2 diabetes mellitus with other specified complication; E66.9 Obesity, unspecified; Z68.42 Body mass index [BMI] 45.0-49.9, adult | CPT/HCPCS: 20610; 99212; J0665; J1100 ==

== ENCOUNTER 2023-12-14 12:09 | Outpatient (REF) | payer OTHER, SELFPAY ==
[2023-12-14 13:01] LABS: MANUAL DIFF FLAG NO
[2023-12-14 13:13] LABS: Basophils Percent Auto 0.5 % (0-2); Eosinophils Absolute Auto 0.2 X10*3/uL (0.0-0.4); Eosinophils Percent Auto 2.7 % (0-4); Hematocrit 47.4 % (42.0-52.0); Hemoglobin 15.7 g/dl (14.0-18.0); Imm Gran Abs Auto 0.06 X10*3/uL (0.00-0.03); Imm Gran Pct Auto 0.8 % (0.0-0.4); Lymphocytes Absolute Auto 1.8 X10*3/uL (1.2-4.9); Lymphocytes Percent Auto 24.7 % (20-40); Mean Corpuscular HGB Conc 33.1 g/dl (31.0-36.0); Mean Corpuscular Hemoglobin 28.7 pg (27.0-33.0); Mean Corpuscular Volume 86.7 fL (80.0-98.0); Mean Platelet Volume 10.9 fL (9.4-12.4); Monocytes Absolute Auto 0.7 X10*3/uL (0.1-1.2); Monocytes Percent Auto 8.9 % (2-11); Neutrophils Absolute Auto 4.6 x10*3/uL (2.0-8.3); Neutrophils Percent Auto 62.4 % (45-73); Platelet Count 145 X10*3/uL (160-400); Red Blood Count 5.47 X10*6/uL (4.60-5.80); Red Cell Distribution Width 13.7 % (11.0-16.0); White Blood Count 7.4 X10*3/uL (4.8-10.8)
[2023-12-14 14:13] LABS: Creatinine Urine 66.49 mg/dL; Microalbum/Creatinine Ratio Ur 49.6 ug/mg cr (<30)
[2023-12-14 14:20] LABS: Alanine Aminotransferase 43 U/L (0-40); Albumin Level 4.7 g/dL (3.5-5.0); Alkaline Phosphatase 56 U/L (39-117); Anion Gap 14 (12-20); Aspartate Amino Transferase 31 U/L (5-37); Bilirubin Total 0.7 mg/dL (0.0-1.0); Blood Urea Nitrogen 18 mg/dL (9-16); Carbon Dioxide 23 mmol/L (22-29); Chloride 109 mmol/L (96-108); Cholesterol 102 mg/dL (<200); Estimated Glomerular Filt Rate > 60; Glucose Random 142 mg/dL (60-115); HDL Cholesterol 45 mg/dL (>40); Iron 68 mcg/dL (45-160); LDL Cholesterol Calculated 34 mg/dL (<100); Percent Iron Saturation 29 % (15-50); Potassium 4.6 mmol/L (3.3-5.1); Sodium 141 mmol/L (135-145); TSH reflex Free T4 0.79 uIU/mL (0.32-4.0); Total Iron Binding Capacity 231 mcg/dL (228-428); Total Protein 8.1 g/dL (6.5-8.0); Triglycerides 117 mg/dL (<150); Unsaturated Iron Binding 163 ug/dL
[2023-12-14 16:00] LABS: Reflex LDLD? No
[2023-12-15 07:52] LABS: HIV AB/AG Nonreactive (Nonreactive); HIV Num 1 0.06 S/CO (0.00-0.99)
[2023-12-16 08:13] LABS: HCV Log PCR <1.18 NOT DETECTED Log IU/mL (NOT DETECTED); HepC Viral Load <15 NOT DETECTED IU/mL (NOT DETECTED)
== END 2023-12-14 12:10 | disposition home or self-care (01) ==
LOC: HO.HHCL 12:09
PROVIDERS: Visit Provider Internal Medicine
DX: Z00.00 Encounter for general adult medical examination without abnormal findings (principal); E11.65 Type 2 diabetes mellitus with hyperglycemia; E66.01 Morbid (severe) obesity due to excess calories; Z68.42 Body mass index [BMI] 45.0-49.9, adult
CPT/HCPCS: 36415; 80053; 80061; 82043; 82570; 83540; 84443; 85025; 87389; 87522

== ENCOUNTER 2023-12-15 10:24 | Outpatient (AMB) | payer OTHER, SELFPAY ==
--- NOTE | 2023-12-15 11:06 | A.OFFVIS_ITS ---
Vital Signs 12/15/23 11:07 Height 5 ft 7 in Weight 288 lb BMI 45.1 Intake Visit Reasons: 3 months f/up Intake Note: Jon is a 57 year old male who presents today for a follow up of bilateral knee OA, R>L, S/P right meniscectomy in ~201. Last injection administered 09/15/23 in the left knee. He is interested in repeat injection, hx od DM Allergies No Known Allergies Allergy (Verified 06/16/23 10:32) HPI HPI 3 months f/up: Details: Jon returns today with right knee pain. He continues to have pain. The steroid injection was helpful but it was brief. He is working with his primary care doctor for weight loss. [facility] Medical History Asthma Chronic back pain Depression with anxiety Diabetes mellitus type 2 in obese Essential hypertension Hyperlipidemia, unspecified Morbid obesity GERDA (obstructive sleep apnea) Surgical History Hx of cholecystectomy Hx of oral surgery H/O right knee surgery Family History Father Lung cancer Mother Cancer Liver failure Sister No problems noted. Brother No problems noted. Brother No problems noted. Social History Alcohol intake: never Patient Tobacco Use Status: Never used Tobacco Physical Exam Vital Signs: BMI result Body Mass Index 45.1 Const Nutritional Appearance: obese (BMI 45) Extrem Other: There is tenderness to palpation medial compartment left greater than right. Varus malalignment bilateral knees with varus thrust bilaterally Office Procedures Joint Injection/Aspiration Joint Injection/Aspiration Details: Injected 1 mL of Decadron and 3 mL 1% lidocaine and 3 mL of 0.25% Marcaine. Sit e was prepped using aseptic technique. Patient tolerated the procedure well. Primary Site: right knee Approach Used: anterolateral Coding 49856 - Large joint Procedure code (CPT) selection complete Assessment & Plan Assessment & Plan (1) Osteoarthritis of right knee: Code(s): M17.11 - Unilateral primary osteoarthritis, right knee Category: Medical Plan: I injected his right knee. We can repeat this every 3-4 months or proceed to gel injections. I also recommended weight loss for consideration of knee arthroplasty. (2) Diabetes mellitus type 2 in obese: Code(s): E11.69 - Type 2 diabetes mellitus with other specified complication; E66.9 - Obesity, unspecified Category: Medical Plan: Hyperglycemic effects of steroids discussed (3) Morbid obesity: Code(s): E66.01 - Morbid (severe) obesity due to excess calories Category: Medical Plan: Working with his PCP and weight management. Coding Level of Care Code Est Pt Level 4 (18189) Diagnoses Osteoarthritis of right knee M17.11 Diabetes mellitus type 2 in obese E11.69; E66.9 Morbid obesity E66.01 CPT Codes Coding - 58370 Large joint: 02821 - Large joint ([id number])
[2023-12-15 11:07] VITALS: BMI 45.1
== END 2023-12-15 11:45 | disposition home or self-care (01) ==
PROVIDERS: PCP Internal Medicine; Visit Provider Orthopaedic Surgery
DX: M17.11 Unilateral primary osteoarthritis, right knee (principal); E11.69 Type 2 diabetes mellitus with other specified complication; E66.01 Morbid (severe) obesity due to excess calories; Z68.42 Body mass index [BMI] 45.0-49.9, adult
CPT/HCPCS: 20610; 99214

== ENCOUNTER → 2023-12-15 10:24 | Outpatient (BNVA) | payer OTHER, SELFPAY | PROVIDERS: PCP Internal Medicine; Visit Provider Orthopaedic Surgery | DX: M17.11 Unilateral primary osteoarthritis, right knee (principal); E11.69 Type 2 diabetes mellitus with other specified complication; E66.01 Morbid (severe) obesity due to excess calories; Z68.42 Body mass index [BMI] 45.0-49.9, adult | CPT/HCPCS: 20610; 99212; J0665; J1100 ==

== ENCOUNTER 2024-03-19 09:41 | Outpatient (AMB) | payer OTHER, SELFPAY ==
[2024-03-19 10:13] VITALS: BMI 45.1
--- NOTE | 2024-03-19 10:13 | MHC.OFFVIS ---
Vital Signs 03/19/24 10:13 Height 5 ft 7 in Weight 288 lb BMI 45.1 Intake Visit Reasons: Right Knee Injection - Last injected 12/15/23 Intake Note: Jon is a 58 year old male who presents today for a follow up of his right knee OA. HX of DM. Last right knee injection was administered on 12/15/2023 and provided about 2-3 months of relief. He would like to repeat injection today. Allergies No Known Allergies Allergy (Verified 03/19/24 10:17) HPI HPI Right Knee Injection - Last injected 12/15/23: Details: Jon is a 58 year old male who presents today for a follow up of his right knee OA. HX of DM. Last right knee injection was administered on 12/15/2023 and provided about 2-3 months of relief. He would like to repeat injection today. [facility] Medical History Asthma Chronic back pain Depression with anxiety Diabetes mellitus type 2 in obese Essential hypertension Hyperlipidemia, unspecified Morbid obesity GERDA (obstructive sleep apnea) Surgical History Hx of cholecystectomy Hx of oral surgery H/O right knee surgery Family History Father Lung cancer Mother Cancer Liver failure Sister No problems noted. Brother No problems noted. Brother No problems noted. Social History Alcohol intake: never Patient Tobacco Use Status: Never used Tobacco Physical Exam Vital Signs: BMI result Body Mass Index 45.1 Office Procedures Joint Inj/Aspir; Non-Pain Clin Joint Injection/Drain Details: Injected 1 mL of Decadron and 3 mL 1% lidocaine and 3 mL of 0.25% Marcaine. Site was prepped using aseptic technique. Patient tolerated the procedure well. Approach Used: anterolateral Shoulders, Hips, Knees, Knee Large Joint Injection : Right Knee Coding Procedure code (CPT) selection complete Assessment & Plan Assessment & Plan (1) Osteoarthritis of right knee: Code(s): M17.11 - Unilateral primary osteoarthritis, right knee Category: Medical Plan: Severe arthritis in a 58-year-old gentleman who has benefitted from injections in the past but who is diabetic and overweight. He is going through a trial of Ozempic. He understands the hyperglycemic effects of steroids. (2) Diabetes mellitus type 2 in obese: Code(s): E11.69 - Type 2 diabetes mellitus with other specified complication; E66.9 - Obesity, unspecified Category: Medical Plan: I explained the hyperglycemic effects of steroids. (3) Morbid obesity: Code(s): E66.01 - Morbid (severe) obesity due to excess calories Category: Medical Plan: He is starting Ozempic. Coding Level of Care Code Est Pt Level 4 (23688) Diagnoses Osteoarthritis of right knee M17.11 Diabetes mellitus type 2 in obese E11.69; E66.9 Morbid obesity E66.01 CPT Codes Shoulders, Hips, Knees, - Knee Large Joint Injection : Right Knee ([id number])
== END 2024-03-19 11:00 | disposition home or self-care (01) ==
PROVIDERS: PCP Internal Medicine; Visit Provider Orthopaedic Surgery
DX: M17.11 Unilateral primary osteoarthritis, right knee (principal); E11.69 Type 2 diabetes mellitus with other specified complication; E66.01 Morbid (severe) obesity due to excess calories; Z68.42 Body mass index [BMI] 45.0-49.9, adult
CPT/HCPCS: 20610; 99214

== ENCOUNTER → 2024-03-19 09:41 | Outpatient (BNVA) | payer OTHER, SELFPAY | PROVIDERS: PCP Internal Medicine; Visit Provider Orthopaedic Surgery | DX: M17.11 Unilateral primary osteoarthritis, right knee (principal); E11.69 Type 2 diabetes mellitus with other specified complication; E66.01 Morbid (severe) obesity due to excess calories; Z68.42 Body mass index [BMI] 45.0-49.9, adult | CPT/HCPCS: 20610; 99212; J0665; J1100; J2003 ==

== ENCOUNTER 2024-08-06 09:45 | Outpatient (AMB) | payer OTHER, SELFPAY ==
--- NOTE | 2024-08-06 10:21 | A.OFFVIS_ITS ---
Intake Visit Reasons: INJ- Right Knee Injection - Last injected 03/19/24 Intake Note: Jon is a 58 year old male who presents today for a repeat Right knee injection. Hx of DM. Last right knee injection was administered on 03/19/24. Repeater Operator Required: Yes Repeater Operator Name: John Lincoln LM Allergies No Known Allergies Allergy (Verified 03/19/24 10:17) HPI HPI INJ- Right Knee Injection - Last injected 03/19/24: Details: Continued right knee pain in 58-year-old gentleman with diabetes and severe osteoarthritis. Injections have been helpful. I injected him approximately 5 months ago. [facility] Medical History Asthma Chronic back pain Depression with anxiety Diabetes mellitus type 2 in obese Essential hypertension Hyperlipidemia, unspecified Morbid obesity GERDA (obstructive sleep apnea) Surgical History Hx of cholecystectomy Hx of oral surgery H/O right knee surgery Family History Father Lung cancer Mother Cancer Liver failure Sister No problems noted. Brother No problems noted. Brother No problems noted. Social History Alcohol intake: never Patient Tobacco Use Status: Never used Tobacco Physical Exam Const Nutritional Appearance: obese (BMI 45) Extrem Other: There is tenderness to palpation medial compartment left greater than right. Varus malalignment bilateral knees with varus thrust bilaterally Office Procedures Joint Inj/Aspir; Non-Pain Clin Joint Injection/Drain Details: Injected 1 mL of Decadron and 3 mL 1% lidocaine and 3 mL of 0.25% Marcaine. Site was prepped using aseptic technique. Patient tolerated the procedure well. Shoulders, Hips, Knees, Knee Large Joint Injection : Right Knee Coding Procedure code (CPT) selection complete Assessment & Plan Assessment & Plan (1) Osteoarthritis of right knee: Code(s): M17.11 - Unilateral primary osteoarthritis, right knee Category: Medical Plan: 58-year-old diabetic with severe osteoarthritis and morbid obesity. I injected his right knee. I informed him of the hyperglycemic effects of steroids. He may return to see me in no sooner than 4 months for repeat injections. Continue activity and weight loss as possible (2) Diabetes mellitus type 2 in obese: Code(s): E11.69 - Type 2 diabetes mellitus with other specified complication; E66.9 - Obesity, unspecified Category: Medical Plan: I informed him of the hyperglycemic effects of steroids. Coding Level of Care Code Est Pt Level 4 (30617) Diagnoses Osteoarthritis of right knee M17.11 Diabetes mellitus type 2 in obese E11.69; E66.9 CPT Codes Shoulders, Hips, Knees, - Knee Large Joint Injection : Right Knee ([id number])
== END 2024-08-06 10:49 | disposition home or self-care (01) ==
LOC: HO.HOS 09:45
PROVIDERS: PCP Internal Medicine; Visit Provider Orthopaedic Surgery
DX: M17.11 Unilateral primary osteoarthritis, right knee (principal); E11.69 Type 2 diabetes mellitus with other specified complication
CPT/HCPCS: 20610

== ENCOUNTER → 2024-08-06 09:45 | Outpatient (BNVA) | payer OTHER, SELFPAY | PROVIDERS: PCP Internal Medicine; Visit Provider Orthopaedic Surgery | DX: M17.11 Unilateral primary osteoarthritis, right knee (principal); E11.69 Type 2 diabetes mellitus with other specified complication; E66.9 Obesity, unspecified | CPT/HCPCS: 20610; J0665; J1100; J2003 ==

== ENCOUNTER 2024-12-06 09:21 | Outpatient (AMB) | payer OTHER, SELFPAY ==
--- OUTSIDE RECORDS SUMMARY | 2024-12-06 09:38 | XMS_ITS | Patient Health Record ---
Author Organization - [facility] Address [address] [place] [address] Care Team Providers Care Briquetting Machine Operator Name Role Phone FERNANDA BAKER Primary Care Provider Dona Horton Unavailable [phone] Reason For Referral No Information Medications Medication SIG (Take, Route, Frequency, Duration) Notes Start Date End Date Status glipiZIDE 10 MG 1 tablet Orally twic e a day (bid) Active Paxil 20 MG 1 tablet in the morn ing Orally Once a day Active Nitrostat 0.4 MG Sublingual Ac tive Carvedilol 3.125 MG 1 tablet with food O rally once a day Active Ibuprofen 800 MG 1 tablet Orally Thre e times a day Active Lisinopril 40 MG 1 tablet Orally Once a day Active Temazepam 30 MG 1 capsule at bedtime as needed Orally Once a day Active Gabapentin 100 MG 1 capsule Orally twi ce a day (bid) Active Nabumetone 500 MG 1 tablet Orally Twic e a day Active amLODIPine Besylate 5 MG 1 tablet Orally Once a day Active LORazepam 0.5 MG 1 tablet as needed O rally three times a day (tid) Active Albuterol Sulfate (2.5 MG/3ML) 0.083% 3 ml Inhalation Three times a day Active Ventolin HFA 108 (90 Base) MCG/ACT 2 puffs as needed Inhalation every 4 hrs Active Social History Tobacco Use: Social History Observation Description Date Details (start date - stop date) Never Smoker NA - NA Smoking: Question Answer Notes Are you a: never smoker Problems Problem Type SNOMED Code ICD Code Onset Dates Problem Status W/U Status Risk Notes Problem Hyperlipidemia (59728879) Hyperlipidemia, unspecified (E78.5) Active confirmed Problem Type II diabetes mellitus without complication (738476792) Type 2 diabetes mellitus without complications (E11.9) Active confirmed Problem Diabetic peripheral neuropathy associated with type 2 diabetes mellitus (7861287633214) Type 2 diabetes mellitus with diabetic neuropathy, unspecified (E11.40) Active confirmed Problem Sleep apnea (45344578) Sleep apnea, unspecified (G47.30) Active confirmed Problem Essential hypertension (15605325) Essential (primary) hypertension (I10) Active confirmed Problem Angina pectoris (368997840) Angina pectoris, unspecified (I20.9) Active confirmed Problem 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) (21315007615780676) 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) Active confirmed Problem Heart failure (01867607) Heart failure, unspecified (I50.9) Active confirmed Problem Fibromyalgia (942147922) Fibromyalgia (M79.7) Active confirmed Problem Specialized medical examination (52321776) Encounter for other specified special examinations (Z01.89) Active confirmed Plan Of Treatment Pending Test Test Name Order Date Nuclear Stress Test 03/03/2016 Insurance Providers Payer Name Payer Address Payer Phone Subscriber Number Group Number Insured Name Patient Relationship to Insured Coverage Start Date Coverage End Date [facility] [address] [address] [place] [phone] [id number] BREA ZHOU Self - patient is the insured Medical (General) History Medical History History ICD Code HTN DM DEPRESSION SLEEP APNEA WAITING FOR CPAP MACHINE 12/2015 ECHO EF 55-60% NO 06/14/2016 NST EQUIVOCAL RESULTS Surgical History Surgery Date(Month/Year) CHOLECYSTECTOMY 2010 KNEE SURGERY Hospitalization History Reason Date(Month/Year) abdominal pain 2010
--- OUTSIDE RECORDS SUMMARY | 2024-12-06 09:38 | XMS_ITS | Encounter Summary ---
Author Organization [employer] Address [address] [address] [place] [address] Care Team Providers Care Tobacco Stripper Hand Name Role Phone Radha Carbajal MD Primary Care Provide r Reason for Visit * Reason Comments Med Refill Encounter Details Date Type Department Care Team ([facility] st Contact Info) Description 06/14/2024 Refill [facility] CHC MED & PEDS [address] [place], [place] [phone] Radha Carbajal MD [address], [place] [phone] Pain Social History Tobacco Use Types Packs/Day Years Used Date Smoking Tobacco: Former Cigarettes Passive Smoke Exposure: Past Smokeless Tobacco: Never Alcohol Use Standard Drinks/Week Comments Not Currently 0 (1 standard drink = 0.6 oz pur e alcohol) Depression Answer Date Recorded Patient Health Questionnaire-9 Score 0 12/14/2023 Patient Health Questionnaire-9 Score 0 12/14/2023 Last PHQ-9: Questionnaire Data Not on file 0 12/14/2023 Housing Stability Answer Date Recorded What is your housing situation today? I have lashon connell 12/14/[address] you li ve. Do you have problems with any of the following? None of the above 12/14/2023 Food Insecurity Answer Date Recorded Within the past 12 months, y ou worried that your food would run out before you got money to buy more: Never True 12/14/2023 Within the past 12 months,th e food you bought just didn't last and you didn't have enough money to get more: Never True 11/2023 Transportation Answer Date Recorded In the past 12 months, has l ack of transportation kept you from medical appts, meetings, work or from getting things needed for daily living? No 12/14/2023 Utilities Answer Date Recorded In the past 12 months, has t he electric, gas, oil or water company threatened to shut off services in your home? No 12/14/2023 Depression Answer Date Recorded Patient Health Questionnaire-2 Score 0 12/14/2023 Internet Access Answer Date Recorded Internet Access Q1 Yes 06/07/2024 Internet Access Q2 I do not want or need it 05/11 Sex and Gender Information Value Date Recorded Sex Assigned at Male 03/08/2022 10:40 AM EDT Legal Sex Male 10:40 AM EDT Gender Identity Male 03/08/2022 10:40 AM EDT Sexual Orientation Straight 03/08/2022 10 :40 AM EDT documented as of this encounter Plan of Treatment Upcoming Encounters Date Type Department Care Team (Late st Contact Info) Description 12/20/2024 10:00 AM EDT Office Visit [facility] MEDICINE [address] [place] [address] Radha Carbajal MD [address] [place] [address] 12/24/2024 11:00 AM EDT Clinical Support [facility] DIABETES/NUTRITION [address] [place] [address] Petra Chin, MERY [address] [place] [address] documented as of this encounter Visit Diagnoses Diagnosis Pain Generalized pain documented in this encounter Additional Health Concerns Assessment Noted Time PHQ-9 Depression Total Score: 0 12/14/19 24 11:15 AM EDT documented as of this encounter Care Teams Tobacco Stripper Hand Relationship Specialty Start Date End Date Radha Carbajal MD [address] [place] [id number] PCP - General Family Medicine 11/18/21 documented as of this encounter
--- OUTSIDE RECORDS SUMMARY | 2024-12-06 09:38 | XMS_ITS | Clinical Summary ---
Author Organization 175 [facility] Address [address] [place] [address] Phone Care Team Providers Care Mine Inspector Federal Name Role Phone Radha Carbajal MD Primary Care Provide r Allergies No known active allergies Medications No known medications Encounters Date Type Department Care Team Description 10/02/2024 10:45 AM EDT Office Visit [facility] [address] [phone] Abhinav Wilson, DPM Tinea pedis of both feet (Primary Dx); Dermatophytosis of nail; Metatarsalgia of both feet; Type II diabetes mellitus with peripheral circulatory disorder ([facility] V24, [facility] V28); Pain in toe of right foot; Pain in toe of left foot; Diabetic mononeuropathy simplex (CMS/[facility] V24, [facility] V28) from Last 3 Months Social History Tobacco Use Types Packs/Day Years Used Date Smoking Tobacco: Never Assessed Sex and Gender Information Value Date Recorded Sex Assigned at Not on file Legal Sex Male 7:05 AM EST Gender Identity Not on file Sexual Orientation Not on file Last Filed Vital Signs Vital Sign Reading Time Taken Comments Blood Pressure - - Pulse - - Temperature - - Respiratory Rate - - Oxygen Saturation - - Inhaled Oxygen Concentration - - Weight 132 kg (290 lb) 10/02/2024 10:15 AM EDT Height 167.6 cm (5' 5.98 ) 10/02/2024 10:15 AM E DT Body Mass Index 46.83 10/02/2024 10:15 AM EDT Plan of Treatment Upcoming Encounters Date Type Department Care Team ([facility] st Contact Info) Description 01/03/2025 9:15 AM EDT Office Visit Orthopedic Surgery [facility] [address] [phone] Abhinav Wilson, DPM [address] [address] Health Maintenance Due Date Last Done Comments Diabetes: Annual GFR (Glomerular Filtration Rate) 1965 Diabetes: Annual Foot Exam 12/14/1975 Diabetes: Annual Retina Eye Exam 12/14/1975 Hepatitis B Vaccines (1 of 3 - 19+ 3-dose series) 1984 Cholesterol Screening (Lipid Panel) 04/11/2022 Hepatitis C Screening 04/11/2022 Medicare Annual Wellness Visit 04/11/2022 Social Influencers of Health Screening 04/11/2022 Depression Screening 05/09/2024 Diabetes: Annual Urine Albumin-Creatinine Ratio (uACR) 07/05/2024 Hypertension/CHF/CAD Annual BMP Blood Test 07/05/2024 Influenza Vaccine (#1) 2025 , 06/01/2023, 02/10/2023, Additional history exists Diabetes: Blood Sugar Control Test (HGBA1C) 03/20/2025 09/17/2024, 03/15/2024 Colorectal Cancer Screening: FIT-DNA (Cologuard) 03/30/2027 03/30/2024 DTaP,Tdap,and Td Vaccines (2 - Td or Tdap) 09/17/2034 09/17/2024 HIV Screening Completed 12/14/2023 Pneumococcal Vaccine: 50+ Years Completed 12/14/2023 COVID-19 Vaccine Completed 03/15/2024, , 02/10/2022, Additional history exists Zoster Vaccines Completed 05/21/2024, 03/19/2024 HIB Vaccines Aged Out No longer eligi ble based on patient's age to complete this topic HPV Vaccines Aged Out No longer eligi ble based on patient's age to complete this topic Hepatitis A Vaccines Aged Out No long er eligible based on patient's age to complete this topic IPV Vaccines Aged Out No longer eligi ble based on patient's age to complete this topic MMR Vaccines Aged Out No longer eligi ble based on patient's age to complete this topic Meningococcal ACWY Vaccine Aged Out N o longer eligible based on patient's age to complete this topic Meningococcal B Vaccine Aged Out No l onger eligible based on patient's age to complete this topic RSV Immunization Patients Under 20 months Aged Out No longer eligible based on patient's age to complete this topic Varicella Vaccines Aged Out No longer eligible based on patient's age to complete this topic Insurance [facility] MEDICARE Member Subscriber Plan / Payer (Ef fective 2021-Present) Name:JON CHAN Relation to Subscriber:Self Name:Jon Chan Payer ID:[id number] Group ID:[id number] Type:Not on file Address: [place] [address] [address] [phone] Care Teams Mine Inspector Federal Relationship Specialty Start Date End Date Radha Carbajal MD [address] [phone] PCP - General Internal Medicine 03/27/24
[2024-12-06 10:02] VITALS: BMI 45.1
--- NOTE | 2024-12-06 10:02 | A.OFFVIS_ITS ---
Vital Signs 12/06/24 10:02 Height 5 ft 7 in Weight 288 lb BMI 45.1 Intake Visit Reasons: Right Knee OA, Last Injection 08/06/24 Intake Note: Jon is a 58 year old male who presents today for a repeat Right Knee Injection. Last injection administered to the right knee on 08/06/24. Advised to repeat injections Q4M due to Diabetes. Patient reports injection lasted for ab out a month with relief. Allergies No Known Allergies Allergy (Verified 12/06/24 10:05) HPI HPI Right Knee OA, Last Injection 08/06/24: Details: Jon is continuing to lose weight. He is looking better but still feeling bad with respect to his knee. He has severe varus alignment of his right knee. Injections have been beneficial but he still uses a cane in also complains of left knee pain. [facility] Medical History Asthma Chronic back pain Depression with anxiety Diabetes mellitus type 2 in obese Essential hypertension Hyperlipidemia, unspecified Morbid obesity GERDA (obstructive sleep apnea) Surgical History Hx of cholecystectomy Hx of oral surgery H/O right knee surgery Family History Father Lung cancer Mother Cancer Liver failure Sister No problems noted. Brother No problems noted. Brother No problems noted. Social History Alcohol intake: never Patient Tobacco Use Status: Never used Tobacco Physical Exam Vital Signs: BMI result Body Mass Index 45.1 Extrem Other: There is severe varus alignment of the right knee with tenderness to palpation medially. He walks with a cane. He has 10 to 120 degrees motion. Office Procedures Joint Inj/Aspir; Non-Pain Clin Joint Injection/Drain Details: Injected 1 mL of Decadron and 3 mL 1% lidocaine and 3 mL of 0.25% Marcaine. Site was prepped using aseptic technique. Patient tolerated the procedure well. Shoulders, Hips, Knees, Knee Large Joint Injection : Right Knee Coding Procedure code (CPT) selection complete Assessment & Plan Assessment & Plan (1) Osteoarthritis of right knee: Code(s): M17.11 - Unilateral primary osteoarthritis, right knee Category: Medical Plan: This is a 50-year-old gentleman who has weight is decreasing and who has varus malalignment of his right knee is increasing. I think it is time to reconsider arthroplasty. We had injected his right knee today and I will see him back in 2-3 months. At that time we will discuss knee replacement status. (2) Diabetes mellitus type 2 in obese: Code(s): E11.69 - Type 2 diabetes mellitus with other specified complication; E66.9 - Obesity, unspecified Category: Medical Plan: I discussed the hyperglycemic effects of steroids. Coding Level of Care Code Est Pt Level 4 (00510) Diagnoses Osteoarthritis of right knee M17.11 Diabetes mellitus type 2 in obese E11.69; E66.9 CPT Codes Shoulders, Hips, Knees, - Knee Large Joint Injection : Right Knee ([id number])
== END 2024-12-06 11:05 | disposition home or self-care (01) ==
LOC: HO.HOS 09:22
PROVIDERS: PCP Internal Medicine; Visit Provider Orthopaedic Surgery
DX: M17.11 Unilateral primary osteoarthritis, right knee (principal); E11.69 Type 2 diabetes mellitus with other specified complication; E66.9 Obesity, unspecified
CPT/HCPCS: 20610; 99214

== ENCOUNTER → 2024-12-06 09:21 | Outpatient (BNVA) | payer OTHER, SELFPAY | PROVIDERS: PCP Internal Medicine; Visit Provider Orthopaedic Surgery | DX: M17.11 Unilateral primary osteoarthritis, right knee (principal); M21.161 Varus deformity, not elsewhere classified, right knee; E11.69 Type 2 diabetes mellitus with other specified complication; E66.9 Obesity, unspecified; Z68.42 Body mass index [BMI] 45.0-49.9, adult | CPT/HCPCS: 20610; 99212; J0665; J1100; J2003 ==

== ENCOUNTER 2024-12-24 09:25 | Outpatient (REF) | payer OTHER, SELFPAY ==
--- OUTSIDE RECORDS SUMMARY | 2024-12-24 09:57 | XMS_ITS | Encounter Summary ---
Author Organization [email or web address] Address [address] [facility] 7t [place] [address] Care Team Providers Care Aging Room Hand Name Role Phone Radha Carbajal MD Primary Care Provide r Reason for Visit * Reason Comments Med Refill Encounter Details Date Type Department Care Team ([facility] st Contact Info) Description 06/14/2024 Refill [facility] CHC MED & PEDS [address] [place], [place] [phone] Radha Carbajal MD 230 [place], [place] [phone] Pain Social History Tobacco Use Types Packs/Day [...] Care Team (Late st Contact Info) Description 12/24/2024 11:00 AM EDT Clinical Support [facility] DIABETES/NUTRITION [address] [place] [address] [place] [address] Arrived documented as of this encounter Visit Diagnoses Diagnosis Pain Generalized pain documented in this encounter Additional Health Concerns Assessment Noted Time PHQ-9 Depression Total Score: 0 12/14/19 24 11:15 AM EDT documented as of this encounter Care Teams Aging Room Hand Relationship Specialty Start Date End Date Radha Carbajal MD [address] [place] [address] PCP - General Family Medicine 11/18/21 documented as of this encounter
--- OUTSIDE RECORDS SUMMARY | 2024-12-24 09:57 | XMS_ITS | Patient Health Record ---
Author Organization - [facility] Address [address] [place] [address] Care Team Providers Care Sheep Farmer Name Role Phone FERNANDA BAKER Primary Care Provider Dona Horton Unavailable [phone] Reason For Referral No Information Medications Medication [...] Status W/U Status Risk Notes Problem Hyperlipidemia (62710005) Hyperlipidemia, unspecified (E78.5) Active confirmed Problem Type II diabetes mellitus without complication (151268478) Type 2 diabetes mellitus without complications (E11.9) Active confirmed Problem Diabetic peripheral neuropathy associated with type 2 diabetes mellitus (9355085804058) Type 2 diabetes mellitus with diabetic neuropathy, unspecified (E11.40) Active confirmed Problem Sleep apnea (41786395) Sleep apnea, unspecified (G47.30) Active confirmed Problem Essential hypertension (59842166) Essential (primary) hypertension (I10) Active confirmed Problem Angina pectoris (384390884) Angina pectoris, unspecified (I20.9) Active confirmed Problem 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) (88371361708716693) 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 (I25.118) Active confirmed Problem Heart failure (41908618) Heart failure, unspecified (I50.9) Active confirmed Problem Fibromyalgia (111436767) Fibromyalgia (M79.7) Active confirmed Problem Specialized medical examination (23056944) Encounter for other specified special examinations (Z01.89) Active confirmed Plan Of Treatment Pending Test Test Name Order Date Nuclear Stress Test 03/03/2016 Insurance Providers Payer Name Payer Address Payer Phone Subscriber Number Group Number Insured Name Patient Relationship to Insured Coverage Start Date Coverage End Date [facility] [address] [address] [place] [address] [id number] BREA ZHOU Self - patient is the insured Medical (General) History Medical History History ICD Code HTN DM DEPRESSION SLEEP APNEA WAITING FOR CPAP MACHINE 12/2015 ECHO EF 55-60% NO 06/14/2016 NST EQUIVOCAL RESULTS Surgical History Surgery Date(Month/Year) CHOLECYSTECTOMY 2010 KNEE SURGERY Hospitalization History Reason Date(Month/Year) abdominal pain 2010
--- OUTSIDE RECORDS SUMMARY | 2024-12-24 09:57 | XMS_ITS | Clinical Summary ---
Author Organization 175 [facility] Address 175 [place] [address] Phone Care Team Providers Care Color Grinder Name Role Phone Radha Carbajal MD Primary Care Provide r Allergies No known active allergies Medications No known medications Encounters Date Type Department Care Team Description 10/02/2024 10:45 AM EDT Office Visit Orthopedic [facility] [address] [phone] Abhinav Wilson, DPM Tinea pedis of both feet (Primary Dx); Dermatophytosis of nail; Metatarsalgia of both feet; Type II diabetes mellitus with peripheral circulatory disorder ([facility] V24, CMS/[facility] V28); Pain in toe of right foot; Pain in toe of left foot; Diabetic mononeuropathy simplex (CMS/[facility] V24, CMS/[facility] V28) from Last 3 Months Social [...] Upcoming Encounters Date Type Department Care Team ([facility] st Contact Info) Description 01/03/2025 9:15 AM EDT Office Visit Orthopedic Surgery [facility] [address] [phone] Abhinav Wilson, DPM [address] [address] Health Maintenance Due Date Last Done Comments [...] (2 - Td or Tdap) 09/17/2034 09/17/2024 RSV Immunization Adult Patients (1 - 1-dose 75+ series) 2040 HIV Screening Completed 12/14/2023 Pneumococcal Vaccine: 50+ [...] patient's age to complete this topic Insurance [facility] MEDICARE Member Subscriber Plan / Payer (Ef fective 2021-Present) Name:KAYLI PRATTJON DAVIES Relation to Subscriber:Self Name:Jon Dominguez Payer ID:[id number] Group ID:[id number] Type:Not on file Address: [place] [address] [address] [phone] Care Teams Color Grinder Relationship Specialty Start Date End Date Radha Carbajal MD [address] [place] [phone] PCP - General Internal Medicine 03/27/24
[2024-12-24 12:09] LABS: Alanine Aminotransferase 55 U/L (0-40); Albumin Level 4.7 g/dL (3.5-5.0); Alkaline Phosphatase 60 U/L (39-117); Anion Gap 13 (12-20); Aspartate Amino Transferase 50 U/L (5-37); Blood Urea Nitrogen 16 mg/dL (9-16); Calcium 9.5 mg/dL (8.4-10.2); Carbon Dioxide 22 mmol/L (22-29); Chloride 111 mmol/L (96-108); Cholesterol 94 mg/dL (<200); Estimated Glomerular Filt Rate > 60; HDL Cholesterol 38 mg/dL (>40); Potassium 3.9 mmol/L (3.3-5.1); Sodium 142 mmol/L (135-145); Total Protein 7.8 g/dL (6.5-8.0); Triglycerides 99 mg/dL (<150)
[2024-12-24 12:16] LABS: Microalbum/Creatinine Ratio Ur 22.8 ug/mg cr (<30)
== END 2024-12-24 09:26 | disposition home or self-care (01) ==
LOC: HO.HHCL 09:25
PROVIDERS: PCP Internal Medicine; Visit Provider Internal Medicine
DX: E11.65 Type 2 diabetes mellitus with hyperglycemia (principal)
CPT/HCPCS: 36415; 80053; 80061; 82043; 82570

== ENCOUNTER 2025-01-22 10:20 | Outpatient (REF) | payer OTHER, SELFPAY ==
--- OUTSIDE RECORDS SUMMARY | 2025-01-22 13:28 | XMS_ITS | Encounter Summary ---
Author Organization [employer] Address [address] [facility] 7t [place] [address] Care Team Providers Care Roadability Machine Operator Name Role Phone Radha Carbajal MD Primary Care Provide r Reason for Visit * Reason Comments Med Refill Encounter Details Date Type Department Care Team ([facility] st Contact Info) Description 06/14/2024 Refill [facility] CHC MED & PEDS [address] [place], [place] [phone] Radha Carbajal MD 230 [place], [place] [phone] Pain Social History Tobacco Use Types Packs/Day [...] Care Team (Late st Contact Info) Description 02/19/2025 11:00 AM EDT Clinical Support [facility] DIABETES/NUTRITION [address] [place] [address] [place] [address] 03/25/2025 10:00 AM EST Office Visit [facility] MEDICINE [address] [place] [address] Radha Carbajal MD [address] [place] [phone] documented as of this encounter Visit Diagnoses Diagnosis Pain Generalized pain documented in this encounter Additional Health Concerns Assessment Noted Time PHQ-9 Depression Total Score: 0 12/14/19 24 11:15 AM EDT documented as of this encounter Care Teams Roadability Machine Operator Relationship Specialty Start Date End Date Radha Carbajal MD [address] [place] [address] PCP - General Family Medicine 11/18/21 documented as of this encounter
--- OUTSIDE RECORDS SUMMARY | 2025-01-22 13:29 | XMS_ITS | Clinical Summary ---
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 12/08/19 22 Active ALPRAZolam (Xanax) 0.25 MG tablet Take 0.25 mg by mouth in the morning and at bedtime. 08/27/19 22 Active Blood Glucose Monitoring Suppl ([employer] Lite) w/Device kit TEST BLOOD SUGAR TWICE DAILY 12/29/19 22 Active cilostazol (Pletal) 50 MG tablet 1 TABLET 30 MINUTES BEFORE OR 2 HOURS AFTER BREAKFAST AND DINNER ORALLY TWICE A DAY 90 DAYS 06/23/19 22 Active cloNIDine (Catapres) 0.1 MG tablet take 1 tablet by oral route 2 times every day NEEDED Active clotrimazole (Lotrimin) 1 % cream APPLY TO AFFECTED AREA TWICE A DAY IN THE MORNING AND IN THE EVENING 11/11/19 22 Active DULoxetine (Cymbalta) [address] capsule Take 1 capsule by mouth at bed time. Active tamsulosin (Flomax) 0.4 MG 24 hr capsule Take 1 capsule by mouth at bed time. 09/13/19 21 Active tolterodine LA (Detrol LA) 4 MG 24 hr capsule Take 4 mg by mouth in the evening. 06/14/19 23 Active meloxicam (Mobic) 7.5 MG tabletIndicatio ns:Chronic pain of right knee 1-2 tab po daily prn pain 30 tablet 08/27/19 23 Active triamcinolone (Kenalog) 0.1 % creamIndication s:Dermatitis Apply topically 2 times daily. 15 g 12/14/19 24 Active albuterol (2.5 MG/3ML) 0.083% nebulizer solutionIndicat ions:Mild asthma, unspecified whether complicated, unspecified whether persistent Take 3 mL (2.5 mg) by nebulization every 6 (six) hours if needed for wheezing. 75 mL 12/14/19 24 Active albuterol 108 (90 Base) MCG/ACT inhalerIndicati ons:Mild asthma, unspecified whether complicated, unspecified whether persistent Inhale 2 puffs every 6 (six) hours if needed for wheezing. 18 g 12/14/19 24 Active glipiZIDE XL (Glucotrol XL) 10 MG 24 hr tablet TAKE 1 TABLET BY MOUTH EVERY MORNING WITH BREAKFAST 90 tablet 3 02/16/20 24 Active hydroCHLOROthia zide (Microzide) 12.5 MG capsule TAKE 1 CAPSULE BY MOUTH EVERY MORNING 90 capsule 3 03/14/20 24 Active lidocaine (Lidoderm) 5 % patchIndication s:Chronic midline low back pain with right-sided sciatica Apply 1 patch topically Once per day. Remove & discard patch within 12 hours or as directed by MD. 30 patch 2 03/15/20 24 Active melatonin 5 MG tablet 04/23/20 24 Active hydrOXYzine pamoate (Vistaril) 25 MG capsule 04/23/20 24 Active pantoprazole (Protonix) 20 MG EC tabletIndicatio ns:Heartburn Take 1 tablet (20 mg) by mouth before breakfast. Do not crush, chew, or split. 30 tablet 11 06/20/19 25 2025 Active cyclobenzaprine (Flexeril) 10 MG tabletIndicatio ns:Chronic bilateral low back pain, unspecified whether sciatica present TAKE 1 TABLET BY MOUTH THREE TIMES DAILY 60 tablet 2 07/06/19 25 Active triamcinolone (Kenalog) 0.5 % creamIndication s:Dry skin dermatitis Apply topically 3 times daily. 80 g 1 09/18/19 25 Active metFORMIN XR (Glucophage-XR) 500 MG 24 hr tabletIndicatio ns:Type 2 diabetes mellitus with hyperglycemia, without long-term current use of insulin (CMS/HCC) TAKE 2 TABLETS BY MOUTH TWICE DAILY IN THE MORNING AND EVENING 360 tablet 1 10/20/19 25 Active carvedilol (Coreg) 3.125 MG tabletIndicatio ns:Hypertension , unspecified type TAKE 1 TABLET BY MOUTH TWICE DAILY IN THE MORNING AND IN THE EVENING WITH FOOD 180 tablet 1 10/23/19 25 Active cyanocobalamin (Vitamin B-12) 500 MCG tablet TAKE 1 TABLET BY MOUTH EVERY MORNING 90 tablet 1 11/23/19 25 Active thiamine (Vitamin B-1) 100 MG tablet TAKE 1 TABLET BY MOUTH EVERY MORNING 90 tablet 1 11/23/19 25 Active amLODIPine (Norvasc) 10 MG tablet TAKE 1 TABLET BY MOUTH EVERY MORNING 90 tablet 1 12/19/19 25 Active ezetimibe (Zetia) 10 MG tablet TAKE 1 TABLET BY MOUTH EVERY MORNING 90 tablet 1 12/19/19 25 Active lisinopril 40 MG tabletIndicatio ns:Primary hypertension TAKE 1 TABLET BY MOUTH EVERY MORNING 90 tablet 1 12/19/19 25 Active rosuvastatin (Crestor) 20 MG tablet TAKE 1 TABLET BY MOUTH EVERY MORNING 90 tablet 1 12/19/19 25 Active Tirzepatide (Mounjaro) 2.5 MG/0.5ML solution auto-injectorIn dications:Type 2 diabetes mellitus with hyperglycemia, without long-term current use of insulin (CMS/[facility]) Inject 2.5 mg under the skin 1 (one) time per week. 2 mL 2 12/21/19 25 Active gabapentin (Neurontin) 100 MG capsuleIndicati ons:Pain TAKE 1 CAPSULE BY MOUTH TWICE DAILY IN THE MORNING AND IN THE EVENING 60 capsule 1 12/22/19 25 Active TRUEplus Lancets 33G miscIndications :Type 2 diabetes mellitus with hyperglycemia, without long-term current use of insulin (CMS/HCC) USE DIRECTED TO TEST BLOOD SUGAR TWICE DAILY 100 each 01/09/20 25 Active FREESTYLE LITE test stripIndication s:Type 2 diabetes mellitus with hyperglycemia, without long-term current use of insulin (CMS/HCC) USE DIRECTED TO TEST BLOOD SUGAR TWICE DAILY 100 strip 01/09/20 25 Active FREESTYLE LITE test stripIndication s:Type 2 diabetes mellitus with hyperglycemia, without long-term current use of insulin (CMS/HCC) USE TO TEST BLOOD SUGAR TWICE DAILY 100 strip 3 03/30/20 24 2024 Discontinued TRUEplus Lancets 33G miscIndications :Type 2 diabetes mellitus with hyperglycemia, without long-term current use of insulin ([facility]) USE TO TEST BLOOD SUGAR TWICE DAILY 100 each 3 03/30/20 24 2024 Discontinued Active Problems Problem Noted Date Diagnosed Date Dry skin dermatitis 09/17/2024 Heartburn 06/20/2024 Assessment & Plan (06/20/2024 12:22 PM EST): I advise patient to avoid NSAIDs, spicy and acid food, I advise to eat at the same time every day, I advise to elevate the head of the bed and take medications as prescribe Chronic midline low back pain with right-sided s ciatica 03/15/2024 Onychomycosis 03/15/2024 Health care maintenance 12/14/2023 Dermatitis 12/14/2023 GERDA (obstructive sleep apnea) 12/14/2023 Assessment & Plan (09/17/2024 3:42 PM EDT): See HPI Bilateral primary osteoarthritis of knee 024 Assessment & Plan (06/01/2023 12:25 PM EST): Orthopedics referral Acute pain of right shoulder 01/12/2023 Assessment & Plan (06/01/2023 12:25 PM EST): Apply heat on affected area Acetaminophen PRN Cyclobenzaprine 5mg Q 8hrs (patient is aware of side effect somnolence, he doesn't drive) Primary osteoarthritis of right knee 10/21/2022 Hypersomnia 10/21/2022 Chronic pain of right knee 08/26/2022 Assessment & Plan (08/26/2022 1:15 PM EDT): Refer to PT, order xrays and FU with PCP Use Meloxicam up to 50 mg daily x1 week and Tylenol BID PRN pain Encouraged to continue weight reduction FU with PCP Chronic congestive heart failure 05/04/2022 Assessment & Plan (03/15/2024 12:26 PM EST): C/w same medication regimen F/u with cardiology Chronic low back pain 05/04/2022 Assessment & Plan (03/15/2024 12:28 PM EST): Apply heat on affected area [employer] referral Flexeril and lidocaine patches prescribed COVID-19 05/04/2022 Dyslipidemia 05/04/2022 Essential hypertension 05/04/2022 Assessment & Plan (12/20/2024 5:13 PM EDT): Advised: - Aerobic exercise to reduce BP. Initial goal of 30 min walk 3-5x/week. Increase as tolerated. - low-sodium diet (goal: <2g/day) and heart healthy diet such as DASH to reduce BP and prevent ASCVD. - Home BP monitoring 1-2 x day with goal of <140/90. - Seek immediate medical attention for chest pain, palpitations, SOB, syncope, or sudden changes in mental status. - Do not change or discontinue current prescriptions without first consulting health care provider Assessment & Plan (09/17/2024 3:42 PM EDT): I advise: - Aerobic exercise to reduce BP. Initial goal of 30 min walk 3-5x/week. Increase as tolerated. - low-sodium diet (goal: <2g/day) and heart healthy diet such as DASH to reduce BP and prevent ASCVD. - Home BP monitoring 1-2 x day with goal of <140/90. - Seek immediate medical attention for chest pain, palpitations, SOB, syncope, or sudden changes in mental status. - Do not change or discontinue current prescriptions without first consulting health care provider Assessment & Plan (06/20/2024 12:22 PM EST): I advised: - Aerobic exercise to reduce BP. Initial goal of 30 min walk 3-5x/week. Increase as tolerated. - low-sodium diet (goal: <2g/day) and heart healthy diet such as DASH to reduce BP and prevent ASCVD. - Home BP monitoring 1-2 x day with goal of <140/90. - Seek immediate medical attention for chest pain, palpitations, SOB, syncope, or sudden changes in mental status. - Do not change or discontinue current prescriptions without first consulting health care provider Assessment & Plan (01/12/2023 1:53 PM EDT): - Aerobic exercise to reduce BP. Initial goal of 30 min walk 3-5x/week. Increase as tolerated. - low-sodium diet (goal: <2g/day) and heart healthy diet such as DASH to reduce BP and prevent ASCVD. - Home BP monitoring 1-2 x day with goal of <140/90. - Seek immediate medical attention for chest pain, palpitations, SOB, syncope, or sudden changes in mental status. - Do not change or discontinue current prescriptions without first consulting health care provider Assessment & Plan (10/21/2022 9:47 AM EDT): - Aerobic exercise to reduce BP. Initial goal of 30 min walk 3-5x/week. Increase as tolerated. - low-sodium diet (goal: <2g/day) and heart healthy diet such as DASH to reduce BP and prevent ASCVD. - Home BP monitoring 1-2 x day with goal of <140/90. - Seek immediate medical attention for chest pain, palpitations, SOB, syncope, or sudden changes in mental status. - Do not change or discontinue current prescriptions without first consulting health care provider Mild asthma 05/04/2022 Mixed anxiety and depressive disorder 05/04/2022 Assessment & Plan (03/15/2024 12:29 PM EST): Counseling done Patient will request letter in medical records for housing Obstructive sleep apnea syndrome 05/04/2022 Assessment & Plan (12/20/2024 5:16 PM EDT): I advised to use his CPAP machine every day and follow-up with sleep medicine I advised weight loss, hopefully trizeptadine will help Type 2 diabetes mellitus 05/04/2022 Assessment & Plan (12/20/2024 5:14 PM EDT): - Lab Results Component Value Date HGBA1C 6.0 (A) 12/20/2024 HGBA1C 5.1 09/17/2024 HGBA1C 6.6 (A) 03/15/2024 - Lab Results Component Value Date MICROALBUR 33.0 12/14/2023 CREATININE 0.85 12/14/2023 -Changes: I will switch Ozempic to Mounjaro 2.5 mg weekly - Diabetic eye exam: Up-to-date - Diabetic foot exam: Up-to-date - Continue lifestyle modifications - Follow up: 3 months Assessment & Plan (09/17/2024 3:39 PM EDT): Diabetes is: controlled - Lab Results Component Value Date HGBA1C 5.1 09/17/2024 HGBA1C 6.6 (A) 03/15/2024 HGBA1C 6.8 (A) 12/14/2023 - Lab Results Component Value Date MICROALBUR 33.0 12/14/2023 CREATININE 0.85 12/14/2023 -Changes: none - Diabetic eye exam:up to date - Diabetic foot exam:up to date - Continue lifestyle modifications - Continue current medications - Follow up: 3 months Assessment & Plan (06/20/2024 12:23 PM EST): Diabetes is: almost at goal - Lab Results Component Value Date HGBA1C 6.6 (A) 03/15/2024 HGBA1C 6.8 (A) 12/14/2023 HGBA1C 6.9 (A) 06/01/2023 - Lab Results Component Value Date MICROALBUR 33.0 12/14/2023 CREATININE 0.85 12/14/2023 -Changes: I went up on ozempic to 2mg weekly - Diabetic eye exam: Up-to-date - Diabetic foot exam: Patient already referred to podiatry - Continue lifestyle modifications - Continue current medications - Follow up: 3 months Assessment & Plan (03/15/2024 12:27 PM EST): Diabetes is: almost at goal - Lab Results Component Value Date HGBA1C 6.6 (A) 03/15/2024 HGBA1C 6.8 (A) 12/14/2023 HGBA1C 6.9 (A) 06/01/2023 - Lab Results Component Value Date MICROALBUR 33.0 12/14/2023 CREATININE 0.85 12/14/2023 -Changes: I increase his ozempic to 1mg weekly - Diabetic eye exam:up to date - Diabetic foot exam:referral done - Continue lifestyle modifications - Continue current medications - Follow up: 3 months Assessment & Plan (12/14/2023 1:56 PM EDT): Diabetes is: not controlled - Lab Results Component Value Date HGBA1C 6.8 (A) 12/14/2023 HGBA1C 6.9 (A) 06/01/2023 HGBA1C 6.1 (A) 01/12/2023 - Lab Results Component Value Date MICROALBUR 15.0 01/12/2023 CREATININE 0.81 08/12/2022 -Changes: I will prescribed for patient ozempic it will help getting him to his A!c goal and also help him with his weight improving quality of life, morbidity Per AACE guidelines augmentation of this patient's weight loss plan with pharmacologic treatment is recommended and will reduce the patient's overall cardiovascular risk. - Diabetic eye exam:up to date - Diabetic foot exam:pending - Continue lifestyle modifications - Continue current medications - Follow up: 3 months Assessment & Plan (06/01/2023 12:26 PM EST): - Lab Results Component Value Date HGBA1C 6.9 (A) 06/01/2023 HGBA1C 6.1 (A) 01/12/2023 HGBA1C 6.1 (A) 10/21/2022 - Lab Results Component Value Date MICROALBUR 15.0 01/12/2023 CREATININE 0.81 08/12/2022 - Diabetic eye exam:up to date - Diabetic foot exam:pending - Continue lifestyle modifications - Continue current medications Assessment & Plan (01/12/2023 1:52 PM EDT): Lab Results Component Value Date HGBA1C 6.1 (A) 01/12/2023 HGBA1C 6.1 (A) 10/21/2022 HGBA1C 6.6 08/12/2022 - Lab Results Component Value Date MICROALBUR 18.9 11/23/2021 CREATININE 0.81 08/12/2022 - Continue lifestyle modifications - Continue current medications Assessment & Plan (10/21/2022 9:42 AM EDT): - Lab Results Component Value Date HGBA1C 6.1 (A) 10/21/2022 HGBA1C 6.6 08/12/2022 - Lab Results Component Value Date MICROALBUR 18.9 11/23/2021 CREATININE 0.81 08/12/2022 - - Continue lifestyle modifications - Continue current medications - Encounters Date Type Department Care Team Description 01/22/2025 Travel 01/22/[address] [phone] Radha Carbajal MD [facility] 01/05/[address] [phone] Rosanna Ho DO Type 2 diabetes mellitus with hyperglycemia, without long-term current use of insulin ([facility]) 12/24/2024 11:00 AM EDT Clinical Support [facility] DIABETES/NUTRITION [address] [place] [phone] Type 2 diabetes mellitus with hyperglycemia, without long-term current use of insulin ([facility]) (Primary Dx); Morbid obesity with BMI of 45.0-49.9, adult ([facility]) 12/24/2024 Travel 12/21/2024 Refill [facility] [address] [place], [place] [phone] Radha Carbajal MD Pain 12/20/2024 10:00 AM EDT Office Visit [address] [phone] Radha Carbajal MD Essential hypertension (Primary Dx); Type 2 diabetes mellitus with hyperglycemia, without long-term current use of insulin ([facility]); Obstructive sleep apnea syndrome; Dietary counseling; Exercise counseling; Class 3 severe obesity due to excess calories with serious comorbidity and body mass index (BMI) of 45.0 to 49.9 in adult 12/20/2024 Travel 12/18/2024 Telephone [facility] MEDICINE [address] [place] [phone] Radha Carbajal MD Chart Prep 12/17/2024 Refill [facility] MEDICINE [address] [place] [address] [phone] Akil Henderson MD Primary hypertension 12/16/2024 Refill [facility] [address] [place] [address] Radha Carbajal MD Pain 12/14/2024 Refill [facility] MEDICINE [address] [place] [phone] Radha Carbajal MD Type 2 diabetes mellitus with hyperglycemia, without long-term current use of insulin ([facility]) 12/11/2024 Patient Outreach [facility] MEDICINE [address] [place] [phone] Radha Carbajal MD Pre-visit Planning ([facility] screening completed on 06/07/2024) 11/26/2024 9:00 AM EDT Clinical Support [facility] DIABETES/NUTRITION [address] [place] [phone] Type 2 diabetes mellitus with hyperglycemia, without long-term current use of insulin ([facility]) (Primary Dx); Morbid obesity with BMI of 45.0-49.9, adult ([facility]) 11/26/2024 Travel 11/21/2024 Refill [facility] [address] [place] [address] Radha Carbajal MD 11/12/2024 10:00 AM EDT Clinical Support [facility] DIABETES/NUTRITION [address] [place] [phone] Type 2 diabetes mellitus with hyperglycemia, without long-term current use of insulin ([facility]) (Primary Dx); Morbid obesity with body mass index (BMI) of 45.0 to 49.9 in adult ([facility]/HCC) 11/12/2024 Travel from Last 3 Months Immunizations Immunization Administration Dates Next Due Influenza injectable quadriv alent preservative free 06/01/2023,02/10/2023,02/02/2022 Influenza, Recombinant, inje ctable, preservative free 02/01/2024 Reji SARS-CoV-2 Vaccination 07/20/2020 Moderna Covid-19 Vaccine 12+ 06/10/2021 Pfizer Covid-19 Vaccine 12+ 03/15/2024, Pneumococcal Conjugate PCV 20 12/14/2023 Tdap 09/17/2024 Zoster, Recombinant 05/21/2024,03/19/2024 Family History Medical History Relation Name Comments Cancer Brother bladder Lung cancer Father Relation Name Status Comments Brother Father Social History Tobacco Use Types Packs/Day Years Used Date Smoking Tobacco: Former Cigarettes Passive Smoke Exposure: Past Smokeless Tobacco: Never Tobacco Cessation:Counseling Given: Not Answered Alcohol Use Standard Drinks/Week Comments Not Currently 0 (1 standard drink = 0.6 oz pur e alcohol) Depression Answer Date Recorded Patient Health Questionnaire-9 Score 0 12/20/2024 Patient Health Questionnaire-9 Score 0 12/20/2024 Last PHQ-9: Questionnaire Data Not on file 0 12/20/2024 Housing Stability Answer Date Recorded What is [...] the past 12 months, has t he [employer], gas, oil or water company threatened to shut off services in your home? No 12/14/2023 Depression Answer Date Recorded Patient Health Questionnaire-2 Score 0 12/20/2024 Internet Access Answer Date Recorded Internet Access Q1 Yes 12/14/2024 Internet Access Q2 Not on file 12/14/2024 Sex and Gender Information Value Date Recorded Sex Assigned at Male 03/08/2022 10:40 AM EDT Legal Sex Male 10:40 AM EDT Gender Identity Male 03/08/2022 10:40 AM EDT Sexual Orientation Straight 03/08/2022 10 :40 AM EDT Last Filed Vital Signs Vital Sign Reading Time Taken Comments Blood Pressure 110/70 12/20/2024 10:07 AM EDT Pulse 84 12/20/2024 10:07 AM EDT Temperature 36.5 C (97.7 F) 12/20/2024 10:07 AM EDT Respiratory Rate 20 12/20/2024 10:07 AM EDT Oxygen Saturation 98% 12/20/2024 10:07 AM EDT Inhaled Oxygen Concentration - - Weight 129 kg (283 lb 6.4 oz) 12/25/2024 12:59 P M EDT Height 167.6 cm (5' 6 ) 12/25/2024 12:59 PM EDT Body Mass Index 45.74 12/25/2024 12:59 PM EDT Plan of Treatment Upcoming Encounters Date Type Department Care Team (Late st Contact Info) Description 02/19/2025 11:00 AM EDT Clinical Support [facility] DIABETES/NUTRITION [address] [place] [address] Petra Chin, MERY [address] [place] [address] 03/25/2025 10:00 AM EST Office Visit [facility] MEDICINE [address] [place] [address] Radha Carbajal MD [address] [place] [address] Health Maintenance Due Date Last Done Comments CT Colonography 1965 Colonoscopy 1965 FIT 1965 Sigmoidoscopy 1965 Hepatitis B Vaccines (1 of 3 - 19+ 3-dose series) 1984 FOBT 03/30/2025 03/30/2024, 02/23/2023 SDOH Screening 06/07/2025 06/07/2024 Diabetes: Hemoglobin A1C 06/22/2025 025, 09/17/2024, 03/15/2024, Additional history exists Alcohol/Substance Use Screening 09/17/2025 09/17/2024 Disability Screening 09/17/2025 09/17/2024 Depression Screening 12/20/2025 12/20/2024, 12/21/19 25 Tobacco Screening 12/20/2025 12/20/2024 Diabetes: Urine Protein Screening 12/24/2025 12/24/2024, 12/14/2023, 01/12/2023, Additional history exists Lipid Panel 12/24/2025 12/24/2024, 0811/2023, 08/12/2022, Additional history exists Diabetes: Foot Exam 01/03/2026 01/03/2025, Eye Exam 05/25/2026 05/25/2024, 05/09, 05/25/2024, Additional history exists Colorectal Cancer Screening 03/30/2027 FIT DNA/Cologuard 03/30/2027 03/30/2024 DTaP/Tdap/Td Vaccines (2 - Td or Tdap) 09/17/2034 09/17/2024 RSV Patients and Patients Aged 60 years or older (1 - 1-dose 75+ series) 2040 HIV Screening Completed 12/14/2023 Hepatitis C Screening Completed 12/14/2023 Pneumococcal Vaccine: 50+ Years Completed 12/14/2023 COVID-19 Vaccine Completed 03/15/2024, , 02/10/2022, Additional history exists Zoster Vaccines Completed 05/21/2024, 03/19/2024 Influenza Vaccine Completed 01/09/2025, , 06/01/2023, Additional history exists HIB Vaccines Aged Out No longer eligi [...] patient's age to complete this topic Meningococcal Vaccine Aged Out No karen roly eligible based on patient's age to complete this topic RSV under 20 months Aged Out No longe r eligible based on patient's age to complete this topic Rotavirus Vaccines Aged Out No longer eligible based on patient's age to complete this topic Procedures Procedure Name Priority Date/Time Associated Diagnosis Comments AMB REFERRAL TO PODIATRY Routine 01/03/2025 Onychomycosis COMPREHENSIVE METABOLIC PANEL Routine 12/24/2024 9:30 AM EDT Type 2 diabetes mellitus with hyperglycemia, without long-term current use of insulin (CMS/HCC) ALBUMIN, RANDOM URINE W/CREATININE Routine 12/24/2024 9:30 AM EDT Type 2 diabetes mellitus with hyperglycemia, without long-term current use of insulin (CMS/HCC) LIPID PANEL, STANDARD Routine 12/24/2024 9:30 AM EDT Type 2 diabetes mellitus with hyperglycemia, without long-term current use of insulin (CMS/HCC) POCT GLYCATED HEMOGLOBIN, TOTAL Routine 12/20/2024 10:10 AM EDT Type 2 diabetes mellitus with hyperglycemia, without long-term current use of insulin (CMS/HCC) POCT GLUCOSE Routine 12/20/2024 10:06 AM EDT Type 2 diabetes mellitus with hyperglycemia, without long-term current use of insulin (CMS/HCC) LAB COLOGUARD COLON CANCER SCREEN Routine 03/30/2024 12:08 AM EST Screening for colon cancer HEPATITIS C VIRAL RNA, QUANTITATIVE, REAL-TIME PCR Routine 12/14/2023 12:12 PM EDT Health care maintenance HIV 1/2 ANTIGEN/ANTIBODY, FOURTH GENERATION W/RFL Routine 12/14/2023 12:12 PM EDT Health care maintenance from Last 3 Months or Most Recently Relevant to Health Maintenance Results * Referral to Podiatry (01/03/2025) us Radha Koenig MD OUTPATIENT REFERRAL O RDERABLES Final Result * Albumin, Random Urine W/Creatinine (12/24/2024 9:30 AM EDT) Creatinine, Urine 122.79 mg/dL [facility] Microalbumin Urine 28.0 mg/L [facility] Microalbum Creatinine Ratio Ur 22.8 <30 ug/mg cr [facility] Comment:Albumin/Creatinine R atio Reference Ranges: Normal: < 30 ug/mg creatinine Microalbuminuria: 30 - 300 ug/mg creatinineClinical Albuminuria: > 300 ug/mg creatinine Urine (Urine, Random) 12/24/2024 9:30 AM EDT 12/24/2024 11:18 AM EDT us Radha Koenig MD LAB URINE ORDERABLES Final Result Performing Organization Address City/[facility] Co de Phone Number [facility] [address] [place] [phone] * (ABNORMAL) Lipid Panel, Standard (12/24/2024 9:30 AM EDT) Triglycerides 99 <150 mg/dL [facility] Comment:Desirable Triglyceri de: less than 150 mg/dLBorderline High Triglyceride 150-199 mg/dLHigh Triglyceride: 200-499 mg/dLVery High Triglyceride: greater than or equal to 5OO mg/dL Cholesterol 94 <200 mg/dL [facility] Comment:Desirable Cholestero l: less than 200 mg/dLBorderline High Cholesterol: 200-239 mg/dLHigh Cholesterol: greater than 239 mg/dL LDL Cholesterol Calculated 37 <100 mg/dL [facility] Comment:Desirable LDL: less than 100 mg/dLNear Optimal/Above Optimal LDL: 110- 129 mg/dLBorderline High LDL: 130-159 mg/dLHigh LDL: 160-189 mg/dLVery High LDL: greater than or equal to 190 mg/dL HDL Cholesterol 38(L) >40 mg/dL [facility] Comment:Desirable HDL: great er than 40 mg/dL Note: This HDL assay may give artificially low results in patients with liver disease. Blood Venous blood specimen / Unknown 12/24/2024 9:30 AM EDT 12/24/2024 11:10 AM EDT us Radha Koenig MD LAB BLOOD ORDERABLES Final Result [facility] [address] [place] [address] [phone] * (ABNORMAL) Comprehensive Metabolic Panel (12/24/2024 9:30 AM EDT) Sodium 142 135 - 145 mmol/L [facility] Potassium 3.9 3.3 - 5.1 mmol/L [facility] Chloride 111(H) 96 - 108 mmol/L [facility] Carbon Dioxide 22 22 - 29 mmol/L [facility] Anion Gap 13 12 - 20 [facility] Urea Nitrogen (BUN) 16 9 - 16 mg/dL [facility] Creatinine, Serum 0.86 0.5 - 1.4 mg/dL [facility] Estimated Glomerular Filt Rate >60 [facility] Comment:Chronic Kidney Disea se: Estimated GFR < 60 mL/min/1.64h5Iaqetd Kidney Disease: Estimated GFR < 15 mL/min/1.73m2 Glucose 151(H) 60 - 115 mg/dL [facility] Calcium 9.5 8.4 - 10.2 mg/dL [facility] Bilirubin, Total 0.6 0.0 - 1.0 mg/dL [facility] Aspartate Amino Transferase 50(H) 5 - 37 U/L [facility] Alanine Aminotransferase 55(H) 0 - 40 U/L [facility] Total Protein 7.8 6.5 - 8.0 g/dL [facility] Albumin Level 4.7 3.5 - 5.0 g/dL [facility] Alkaline Phosphatase 60 39 - 117 U/L [facility] Blood Venous blood specimen / Unknown 12/24/2024 9:30 AM EDT 12/24/2024 11:10 AM EDT us Radha Koenig MD LAB BLOOD ORDERABLES Final Result [facility] [address] [place] [phone] * (ABNORMAL) POCT HGB A1C (12/20/2024 10:10 AM EDT) Pathologist [facility] [place] Hemoglobin A1C 6.0(A) 4.0 - 5.7 % QC Media Lot # [id number] Lot# Expiration Date 472, Blood 12/20/2024 10:1 0 AM EDT Radha Koenig MD POINT OF CARE TEST EN TER/EDIT ORDERABLES Final Result * (ABNORMAL) POCT Glucose (12/20/2024 10:06 AM EDT) [facility] Glucose Blood, POC 209(A) 60 - 200 mg/dL QC Media Lot # [id number] Lot# Expiration Date 2630, Blood Capillary blood specimen / Unknown 12/20/2024 10:06 AM EDT Radha Koenig MD POINT OF CARE TEST EN TER/EDIT ORDERABLES Final Result * Cologuard?? colon cancer screening (03/30/2024 12:08 AM EST) [facility] Cologuard Result Negative Negative 04/07/20 12:55 AM EST [facility] (CLIA #:[id number]) Comment: NEGATIVE TEST RESULT. A negative Cologuard result indicates a low likelihood that a colorectal cancer (CRC) or advanced adenoma (adenomatous polyps with more advanced pre-malignant features) is present. The chance that a person with a negative Cologuard test has a colorectal cancer is less than 1 in 1500 (negative predictive value >99.9%) or has an advanced adenoma is less than 5.3% (negative predictive value 94.7%). These data are based on a prospective cross-sectional study of 10,000 individuals at average risk for colorectal cancer who were screened with both Cologuard and colonoscopy. (Airam Stiles al, N Engl J Med 2014;370(14):3276-8298) The normal value (reference range) for this assay is negative. COLOGUARD RE-SCREENING RECOMMENDATION: Periodic colorectal cancer screening is an important part of preventive healthcare for asymptomatic individuals at average risk for colorectal cancer. Following a negative Cologuard result, the [place] [employer] and U.S. Multi-Society Task Force screening guidelines recommend a Cologuard re-screening interval of 3 years. References: [place] [employer] Guideline for Colorectal Cancer Screening: https://www.cancer.org/cancer/zkrqi-jtvnls-olbona/xmlmzvcgl-vjpysbgeu-zexpexf/ac s-rec ommendations.html.; Tim DK, Sadi ALEMAN, Binh GreenK, Colorectal Cancer Screening: Recommendations for Physicians and Patients from the U.S. Multi-Society Task Force on Colorectal Cancer Screening , Am J Gastroenterology 2017; 112:5403-6418. TEST DESCRIPTION: Composite algorithmic analysis of stool DNA-biomarkers with hemoglobin immunoassay. Quantitative values of individual biomarkers are not reportable and are not associated with individual biomarker result reference ranges. Cologuard is intended for colorectal cancer screening of adults of either sex, 45 years or older, who are at average-risk for colorectal cancer (CRC). Cologuard has been approved for use by the U.S. FDA. The performance of Cologuard was established in a cross sectional study of average-risk adults aged 50-84. Cologuard performance in patients ages 45 to 49 years was estimated by sub-group analysis of near-age groups. Colonoscopies performed for a positive result may find as the most clinically significant lesion: colorectal cancer [4.0%], advanced adenoma (including sessile serrated polyps greater than or equal to 1cm diameter) [20%] or non- advanced adenoma [31%]; or no colorectal neoplasia [45%]. These estimates are derived from a prospective cross-sectional screening study of 10,000 individuals at average risk for colorectal cancer who were screened with both Cologuard and colonoscopy. (Airam Stiles al, N Engl J Med 2014;370(14):7885-5504.) Cologuard may produce a false negative or false positive result (no colorectal cancer or precancerous polyp present at colonoscopy follow up). A negative Cologuard test result does not guarantee the absence of CRC or advanced adenoma (pre-cancer). The current Cologuard screening interval is every 3 years. ([place] [employer] and U.S. Multi-Society Task Force). Cologuard performance data in a 10,000 patient pivotal study using colonoscopy as the reference method can be accessed at the following location: www.Myreks.Adomik/results. Additional description of the Cologuard test process, warnings and precautions can be found at www.cologuard.com. Stool specimen (specimen) 03/30/2024 12:08 AM EST 03/31/2024 12:28 PM EST us Radha Koenig MD LAB MOLECULAR DIAGNOS TICS ORDERABLES Final Result [facility] (CLIA #:[id number]) [place] [address], * Hepatitis C Viral RNA, Quantitative, Real-Time PCR (12/14/2023 12:12 PM EDT) [facility] Hepatitis C Viral Load <15 NOT DETECTED NOT DETECTED IU/mL [facility] HCV Log PCR <1.18 NOT DETECTED NOT DETECTED Log IU/mL [facility] Comment:For additional infor mation, please refer tohttp://education.Play for Job/faq/MTC73e4(This link is being provided for informational/educational purposes only.)THIS TEST WAS PERFORMED AT:[employer] [place] [id number] POPE MD Blood 12/14/2023 12:1 2 PM EDT 12/14/2023 12:57 PM EDT Radha Koenig MD LAB BLOOD ORDERABLES Final Result Performing Organization Address [facility]/ZIP Co de Phone Number [facility] [address] [place] [phone] * HIV-1/2 Antigen and Antibodies, Fourth Generation, with Reflexes (12/14/2023 12:12 PM EDT) [facility] HIV AB/AG Nonreactive Nonreactive [facility] Comment:HIV-1 p24 Ag and/or HIV-1/HIV-2 Ab not detected.A test result that is nonreactive does not exclude thepossibility of exposure to or infection with HIV-1 and/orHIV-2. Nonreactive results in this assay for individualswith prior exposure to HIV-1 and/or HIV-2 may be due toantigen and antibody levels that are below the limit ofdetection of this assay.The [employer] Plans HIV Ag/Ab Combo assay result andsupplemental assay results should be interpreted inconjunction with the patient's clinical presentation,history and other laboratory results. If the results areinconsistent with clinical evidence, additional testing issuggested to confirm the result. Blood Venous blood specimen / Unknown 12/14/2023 12:12 PM EDT 12/14/2023 12:57 PM EDT Radha Koenig MD LAB BLOOD ORDERABLES Final Result [facility] [address] [place] [phone] from Last 3 Months or Most Recently Relevant to Health Maintenance Insurance [facility] ONE CARE < 65 [place] [id number] Care Teams Heating And Ventilating Worker Relationship Specialty Start Date End Date Radha Carbajal MD [address] [place] [phone] PCP - General Family Medicine 11/18/21
--- OUTSIDE RECORDS SUMMARY | 2025-01-22 13:29 | XMS_ITS | Encounter Summary ---
Author Organization [employer] Address [address] [facility] 7t [place] [address] Care Team Providers Care Lone Lead Lineman Name Role Phone Radha Carbajal MD Primary Care Provide r Encounter Details Date Type Department Care Team (Late Contact Info) Description 01/28/2023 Telephone [facility] MEDICINE [address] [place] [address] [phone] Radha Carbajal MD [address] [place] [address] [phone] Social History Tobacco Use Types Packs/Day Years Used Date Smoking Tobacco: Former Cigarettes Smokeless Tobacco: Never Alcohol Use Standard Drinks/Week Comments Not Currently 0 (1 standard drink = 0.6 oz pur e alcohol) Depression Answer Date Recorded Patient Health Questionnaire-9 Score 7 08/26/2022 Depression Answer Date Recorded Patient Health Questionnaire-2 Score 4 08/26/2022 Sex and Gender Information Value Date Recorded Sex Assigned at Male 03/08/2022 10:40 AM EDT Legal Sex Male 10:40 AM EDT Gender Identity Male 03/08/2022 10:40 AM EDT Sexual Orientation Straight 03/08/2022 10 :40 AM EDT documented as of this encounter Plan of Treatment Upcoming Encounters Date Type Department Care Team (Late Contact Info) Description 02/19/2025 11:00 AM EDT Clinical Support [facility] DIABETES/NUTRITION [address] [place] [phone] [place] [address] 03/25/2025 10:00 AM EST Office Visit [facility] [address] [place] [phone] Radha Carbajal MD [address] [place] [address] documented as of this encounter Visit Diagnoses Not on filedocumented in this encounter Additional Health Concerns Assessment Noted Time PHQ-9 Depression Total Score: 7 08/27/19 23 12:00 PM EDT documented as of this encounter Care Teams Lone Lead Lineman Relationship Specialty Start Date End Date Radha Carbajal MD [address] [place] [address] PCP - General Family Medicine 11/18/21 documented as of this encounter
--- OUTSIDE RECORDS SUMMARY | 2025-01-22 13:29 | XMS_ITS | Encounter Summary ---
Author Organization [employer] Address [address] [facility] 7t [place] [address] Care Team Providers Care Superintendent Concrete Mixing Plant Name Role Phone Radha Carbajal MD Primary Care Provide r Encounter Details Date Type Department Care Team (Late Contact Info) Description 04/29/2022 Telephone [facility] MEDICINE [address] [place] [phone] Radha Carbajal MD [address] [place] [phone] Social History Tobacco Use Types Packs/Day Years [...] Description 02/19/2025 11:00 AM EDT Clinical Support [facility] DIABETES/NUTRITION [address] [place] [phone] Petra Chin, MERY [address] [place] [phone] 03/25/2025 10:00 AM EST Office Visit [facility] MEDICINE [address] [place] [phone] Radha Carbajal MD [address] [place] [address] documented as of this encounter Visit Diagnoses Not on filedocumented in this encounter Care Teams Superintendent [employer]crete Mixing Plant Relationship Specialty Start Date End Date Radha Carbajal MD [address] [place] [phone] PCP - General Family Medicine 11/18/21 documented as of this encounter
--- OUTSIDE RECORDS SUMMARY | 2025-01-22 13:29 | XMS_ITS | Encounter Summary ---
Author Organization [employer] Address [address] [facility] 7t [place] [address] Care Team Providers Care Melt Down Furnace Operator Name Role Phone Radha Carbajal MD Primary Care Provide r Reason for Visit * Reason Comments Med Refill Encounter Details Date Type Department Care Team ([facility] st Contact Info) Description 08/22/2024 Refill [facility] MED[facility]INE [address] [place], [place] [phone] Radha Carbajal MD [address] [place] [address] Chronic midline low back pain with right-sided sciatica; Pain Social History Tobacco Use Types Packs/Day [...] Description 02/19/2025 11:00 AM EDT Clinical Support [facility] DIABETES/NUTRITION [address] [place] [address] [place] [address] 03/25/2025 10:00 AM EST Office Visit [facility] [address] [place] [address] Radha Carbajal MD [address] [place] [address] documented as of this encounter Visit Diagnoses Diagnosis Chronic midline low back pain with right-sided sciatica Pain Generalized pain documented in this encounter Additional Health Concerns Assessment Noted Time PHQ-9 Depression Total Score: 0 12/14/19 24 11:15 AM EDT documented as of this encounter Care Teams Melt Down Furnace Operator Relationship Specialty Start Date End Date Radha Carbajal MD [address] [place] [phone] PCP - General Family Medicine 11/18/21 documented as of this encounter
--- OUTSIDE RECORDS SUMMARY | 2025-01-22 13:29 | XMS_ITS | Encounter Summary ---
Author Organization [employer] Address [address] [facility] 7t [place] [address] Care Team Providers Care Program Coordinator Name Role Phone Radha Carbajal MD Primary Care Provide r Reason for Visit * Reason Comments Med Refill Encounter Details Date Type Department Care Team ([facility] st Contact Info) Description 12/16/2024 Refill [facility] [address] [place], [place] [phone] Radha Carbajal MD [address] [place], [place] [phone] Pain Social History Tobacco Use Types Packs/Day [...] Description 02/19/2025 11:00 AM EDT Clinical Support [facility] DIABETES/NUTRITION [address] [place] [address] [place] [address] 03/25/2025 10:00 AM EST Office Visit [facility] MEDICINE [address] [place] [address] Radha Carbajal MD [address] [place] [address] documented as of this encounter Visit Diagnoses Diagnosis Pain Generalized pain documented in this encounter Additional Health Concerns Assessment Noted Time PHQ-9 Depression Total Score: 0 12/14/19 24 11:15 AM EDT documented as of this encounter Care Teams Program Coordinator Relationship Specialty Start Date End Date Radha Carbajal MD [address] [place] [address] PCP - General Family Medicine 11/18/21 documented as of this encounter
--- OUTSIDE RECORDS SUMMARY | 2025-01-22 13:29 | XMS_ITS | Patient Health Record ---
Author Organization - [facility] Address [address] [place] [address] Care Team Providers Care Developmental Education Instructor Name Role Phone FERNANDA BAKER Primary Care Provider Dona Horton Unavailable [phone] Reason For Referral No Information Medications Medication [...] Status W/U Status Risk Notes Problem Hyperlipidemia (03351615) Hyperlipidemia, unspecified (E78.5) Active confirmed Problem Type II diabetes mellitus without complication (466548749) Type 2 diabetes mellitus without complications (E11.9) Active confirmed Problem Diabetic peripheral neuropathy associated with type 2 diabetes mellitus (2768909001573) Type 2 diabetes mellitus with diabetic neuropathy, unspecified (E11.40) Active confirmed Problem Sleep apnea (39700282) Sleep apnea, unspecified (G47.30) Active confirmed Problem Essential hypertension (85698069) Essential (primary) hypertension (I10) Active confirmed Problem Angina pectoris (181922499) Angina pectoris, unspecified (I20.9) Active confirmed Problem 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) (98444281067723056) 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) Active confirmed Problem Heart failure (62544057) Heart failure, unspecified (I50.9) Active confirmed Problem Fibromyalgia (852306904) Fibromyalgia (M79.7) Active confirmed Problem Specialized medical examination (99650687) Encounter for other specified special examinations (Z01.89) Active confirmed Plan Of Treatment Pending Test Test Name Order Date Nuclear Stress Test 03/03/2016 Insurance Providers Payer Name Payer Address Payer Phone Subscriber Number Group Number Insured Name Patient Relationship to Insured Coverage Start Date Coverage End Date [facility] [address] [address] [place] [phone] [id number] BREA ZHOU Self - patient is the insured Medical (General) History Medical History History ICD Code HTN DM DEPRESSION SLEEP APNEA WAITING FOR CPAP MACHINE 12/2015 ECHO EF 55-60% NO 06/14/2016 NST EQUIVOCAL RESULTS Surgical History Surgery Date(Month/Year) CHOLECYSTECTOMY 2010 KNEE SURGERY Hospitalization History Reason Date(Month/Year) abdominal pain 2010
--- OUTSIDE RECORDS SUMMARY | 2025-01-22 13:29 | XMS_ITS | Encounter Summary ---
Author Organization [employer] Address [address] [facility] 7t [place] [address] Care Team Providers Care Supervisor [employer] Name Role Phone Radha Carbajal MD Primary Care Provide r Encounter Details Date Type Department Care Team (Late st Contact Info) Description 09/26/2024 Orders Only [facility] MEDICINE [address] [place], [place] [phone] Radha Carbajal MD [address] [place], [place] [phone] Social History Tobacco Use Types Packs/Day Years [...] 02/19/2025 11:00 AM EDT Clinical Support [facility] DIABETES/NUTRITION [address] [place] [phone] [place] [address] 03/25/2025 10:00 AM EST Office Visit [facility] MEDICINE [address] [place] [address] Radha Carbajal MD [address] [place] [address] documented as of this encounter Visit Diagnoses Not on filedocumented in this encounter Additional Health Concerns Assessment Noted Time PHQ-9 Depression Total Score: 0 12/14/19 24 11:15 AM EDT documented as of this encounter Care Teams Supervisor [employer] Relationship Specialty Start Date End Date Radha Carbajal MD [address] [place] [address] [phone] PCP - General Family Medicine 11/18/21 documented as of this encounter
--- OUTSIDE RECORDS SUMMARY | 2025-01-22 13:29 | XMS_ITS | Encounter Summary ---
Author Organization [employer] Address [address] [facility] 7t [place] [address] Care Team Providers Care Tactical Intelligence Officer Name Role Phone Radha Carbajal MD Primary Care Provide r Reason for Visit * Reason Onset Date Comments FYI 08/07/2024 Encounter Details Date Type Department Care Team ([facility] st Contact Info) Description 08/07/2024 Telephone [facility] MEDICINE [address] [place], [place] [phone] Radha Carbajal MD [address] [place], [place] [phone] FYI Social History Tobacco Use Types Packs/Day Years [...] AM EDT documented as of this encounter Miscellaneous Notes * Telephone Encounter - [place] - 08/07/2024 3:51 PM EDT Tc from [facility] with [facility] to report pt keeps changing cpap machine pressure. Any questions contact [phone] documented in this encounter Plan of Treatment Upcoming Encounters Date Type Department Care Team (Late st Contact Info) Description 02/19/2025 11:00 AM EDT Clinical Support [facility] DIABETES/NUTRITION [address] [place] [phone] Petra Chin, MERY [address] [place] [address] 03/25/2025 10:00 AM EST Office Visit [facility] MEDICINE [address] [place], [place] [phone] Radha Carbajal MD [address] [place], [place] [phone] documented as of this encounter Visit Diagnoses Not on filedocumented in this encounter Additional Health Concerns Assessment Noted Time PHQ-9 Depression Total Score: 0 12/14/19 24 11:15 AM EDT documented as of this encounter Care Teams Tactical Intelligence Officer Relationship Specialty Start Date End Date Radha Carbajal MD [address] [place] [address] PCP - General Family Medicine 11/18/21 documented as of this encounter
--- OUTSIDE RECORDS SUMMARY | 2025-01-22 13:29 | XMS_ITS | Encounter Summary ---
Author Organization [employer] Address 75 [facility] 7t [place] [address] Care Team Providers Care Sales Manager Name Role Phone Radha Carbajal MD Primary Care Provide r Reason for Visit * Reason Comments Med Refill Encounter Details Date Type Department Care Team ([facility] st Contact Info) Description 05/11/2023 Refill [facility] MEDICINE [address] [place], [place] [phone] Pamela Hewitt MD [address] [place], [place] [phone] Pain Social History Tobacco Use Types Packs/Day Years Used Date Smoking Tobacco: Former Cigarettes Smokeless Tobacco: Never Alcohol Use Standard Drinks/Week Comments Not Currently 0 (1 standard drink = 0.6 oz pur e alcohol) Depression Answer Date Recorded Patient Health Questionnaire-9 Score 7 08/26/2022 Housing Stability Answer Date Recorded What is your housing situation today? I do not have housing (Staying with others, in a hotel, in a residential, living outside on the street, on a beach, in a car, or in a park 02/14/[address] you li ve. Do you have problems with any of the following? None of the above 02/14/2023 Food Insecurity Answer Date Recorded Within the past 12 months, y ou worried that your food would run out before you got money to buy more: Never True 02/21/2023 Within the past 12 months,th e food you bought just didn't last and you didn't have enough money to get more: Never True Transportation Answer Date Recorded In the past 12 months, has l ack of transportation kept you from medical appts, meetings, work or from getting things needed for daily living? No 02/21/2023 Utilities Answer Date Recorded In the past 12 months, has t he electric, gas, oil or water company threatened to shut off services in your home? No 02/21/2023 Depression Answer Date Recorded Patient Health Questionnaire-2 [...] Description 02/19/2025 11:00 AM EDT Clinical Support [facility] DIABETES/NUTRITION [address] [place] [address] [place] [address] 03/25/2025 10:00 AM EST Office Visit [facility] MEDICINE [address] [place] [address] Radha Carbajal MD [address] [place] [address] documented as of this encounter Visit Diagnoses Diagnosis Pain Generalized pain documented in this encounter Additional Health Concerns Assessment Noted Time PHQ-9 Depression Total Score: 7 08/27/19 23 12:00 PM EDT documented as of this encounter Care Teams Sales Manager Relationship Specialty Start Date End Date Radha Carbajal MD [address] [place] [phone] PCP - General Family Medicine 11/18/21 documented as of this encounter
--- OUTSIDE RECORDS SUMMARY | 2025-01-22 13:29 | XMS_ITS | Clinical Summary ---
Author Organization [facility] Address [address] [place] [address] Phone Care Team Providers Care Shelf Drier Operator Name Role Phone Radha Carbajal MD Primary Care Provide r Allergies No known active allergies Medications glucose blood test strip USE TO TEST BLOOD SUGAR TWICE DAILY 4 Active amLODIPine (NORVASC) 10 mg tablet Take 1 tablet (10 mg total) by mouth 1 (one) time each day in the morning. 5 Active amLODIPine (NORVASC) 5 mg tablet Take 1 tablet (5 mg total) by mouth. 8 Active betamethasone valerate (VALISONE) 0.1 % ointment Apply 1 Application topically. 5 Active carvediloL (COREG) 3.125 mg tablet TAKE 1 TABLET BY MOUTH TWICE DAILY IN THE MORNING AND IN THE EVENING WITH FOOD 5 Active Encounters Date Type Department Care Team Description 01/03/2025 9:15 AM EDT Office Visit Orthopedic Surgery [facility] [address] [facility] [address] [place] [address] Abhinav [place], DPM Metatarsalgia of both feet (Primary Dx); Dermatophytosis of nail; Pain in toe of left foot; Diabetic mononeuropathy simplex (CMS/HCC V24, CMS/HCC V28); Tinea pedis of both feet; Type II diabetes mellitus with peripheral circulatory disorder (CMS/HCC V24, CMS/HCC V28); Pain in toe of right foot; Peripheral venous insufficiency from Last 3 Months Social History Tobacco [...] Care Team (Late st Contact Info) Description 04/08/2025 10:00 AM EST Office Visit Orthopedic Surgery - [place] [address] [facility] [address] [place] [address] Abhinav [place], DPLukasz 175 [facility] [address] [place] [address] 04/10/2025 2:30 PM EST Consult Vascular Surgery - [place] [address] [place] [phone] Fariba Borja MD [address] [place] [phone] Health Maintenance Due Date Last Done Comments Diabetes: Annual Foot Exam 12/14/1975 Diabetes: Annual Retina Eye Exam 12/14/1975 Hepatitis B Vaccines (1 of 3 - 19+ 3-dose series) 1984 Hepatitis C Screening 04/11/2022 Medicare Annual Wellness Visit 04/11/2022 Social Influencers of Health Screening 04/11/2022 Depression Screening 05/09/2024 Diabetes: Annual Urine Albumin-Creatinine Ratio (uACR) 07/05/2024 Influenza Vaccine (#1) 2025 , 06/01/2023, 02/10/2023, Additional history exists Diabetes: Blood Sugar Control Test (HGBA1C) 06/22/2025 12/20/2024, 09/17/2024, 03/15/2024 Diabetes: Annual GFR (Glomerular Filtration Rate) 12/24/2025 12/24/2024 Hypertension/CHF/CAD Annual BMP Blood Test 12/24/2025 12/24/2024 Colorectal Cancer Screening: FIT-DNA (Cologuard) 03/30/2027 03/30/2024 Cholesterol Screening (Lipid Panel) 12/24/2029 12/24/2024 DTaP,Tdap,and Td Vaccines (2 - Td or [...] patient's age to complete this topic Insurance [facility] MEDIC[facility] Member Subscriber Plan / Payer (Ef fective 2021-Present) Name:JON CHAN Relation to Subscriber:Self Name:Jon Chan Payer ID:[id number] Group ID:[id number] Type:Not on file Address: [address] [place] [id number] Care Teams Shelf Drier Operator Relationship Specialty Start Date End Date Radha Carbajal MD [address] [place] [phone] PCP - General Internal Medicine 03/27/24
--- OUTSIDE RECORDS SUMMARY | 2025-01-22 13:29 | XMS_ITS | Encounter Summary ---
Author Organization [employer] Address [address] [facility] 7t [place] [address] Care Team Providers Care Cashier Office Name Role Phone Radha Carbajal MD Primary Care Provide r Reason for Visit * Reason Onset Date Comments Tspot 01/22/2025 Encounter Details Date Type Department Care Team ([facility] st Contact Info) Description 01/22/2025 Telephone [facility] [address] [place], [place] [phone] Radha Carbajal MD [address] [place], [place] [phone] Tspot Social History Tobacco Use Types Packs/Day Years [...] encounter Miscellaneous Notes * Telephone Encounter - Margy Shea RN - 01/22/2025 8:36 AM EDT Patient presented to red team FD requesting a Tspot for a program. Patient has not had a positive screen in the past. RN has placed Tspot order, patient informed. documented in this encounter Plan of Treatment Upcoming Encounters Date Type Department Care Team (Late st Contact Info) Description 02/19/2025 11:00 AM EDT Clinical Support [facility] DI[facility]/NUTRITION [address] [place] [phone] [place] [address] 03/25/2025 10:00 AM EST Office Visit [facility] [address] [place] [address] Radha Carbajal MD [address] [place] [address] Scheduled Orders Name Type Priority Associated Diagnoses Orde r Schedule T-SPOT .TB Lab Routine Encounter for screening for respiratory tuberculosis Expected: 01/22/2025 (Approximate), Expires: 01/22/2026 documented as of this encounter Visit Diagnoses Diagnosis Encounter for screening for respiratory tuberculosis documented in this encounter Additional Health Concerns Assessment Noted Time PHQ-9 Depression Total Score: 0 12/21/19 25 10:08 AM EDT documented as of this encounter Care Teams Cashier Office Relationship Specialty Start Date End Date Radha Carbajal MD [address] [place] [address] PCP - General Family Medicine 11/18/21 documented as of this encounter
--- OUTSIDE RECORDS SUMMARY | 2025-01-22 13:29 | XMS_ITS | Encounter Summary ---
Author Organization [employer] Address [address] [facility] 7t [place] [address] Care Team Providers Care Rubber Turner Name Role Phone Radha Carbajal MD Primary Care Provide r Encounter Details Date Type Department Care Team (Latest Contact Info) Description 01/22/2025 Travel Social History Tobacco Use Types Packs/Day Years [...] Description 02/19/2025 11:00 AM EDT Clinical Support [facility] DI[facility]NUTRITION [address] [place] [address] [place] [address] 03/25/2025 10:00 AM EST Office Visit [facility] [address] [place] [phone] Radha Carbajal MD 230 [place] [address] documented as of this encounter Visit Diagnoses Not on filedocumented in this encounter Additional Health Concerns Assessment Noted Time PHQ-9 Depression Total Score: 0 12/21/19 25 10:08 AM EDT documented as of this encounter Care Teams Rubber Turner Relationship Specialty Start Date End Date Radha Carbajal MD [address] [place] [phone] PCP - General Family Medicine 11/18/21 documented as of this encounter
--- OUTSIDE RECORDS SUMMARY | 2025-01-22 13:29 | XMS_ITS | Encounter Summary ---
Author Organization [employer] Address 75 [facility] 7t [place] [address] Care Team Providers Care Physical Damage Appraiser Name Role Phone Radha Carbajal MD Primary Care Provide r Reason for Visit * Reason Comments Med Refill Encounter Details Date Type Department Care Team (Late st Contact Info) Description 01/18/2023 Refill [facility] [address] [place], [place] [phone] Akil Henderson MD [address] [place], [place] [phone] Primary hypertension Social History Tobacco Use Types Packs/Day Years [...] Description 02/19/2025 11:00 AM EDT Clinical Support [facility] DI[facility]/NUTRITION [address] [place], [place] [phone] [address] [place] [address] 03/25/2025 10:00 AM EST Office Visit [facility] [address] [place] [address] Radha Carbajal MD [address] [place] [address] documented as of this encounter Visit Diagnoses Diagnosis Primary hypertension Unspecified essential hypertension documented in this encounter Additional Health Concerns Assessment Noted Time PHQ-9 Depression Total Score: 7 08/27/19 23 12:00 PM EDT documented as of this encounter Care Teams Physical Damage Appraiser Relationship Specialty Start Date End Date Radha Carbajal MD [address] [place] [address] PCP - General Family Medicine 11/18/21 documented as of this encounter
== END 2025-01-22 10:21 | disposition home or self-care (01) ==
LOC: HO.HHCL 10:20
PROVIDERS: PCP Internal Medicine; Visit Provider Internal Medicine
DX: Z11.1 Encounter for screening for respiratory tuberculosis (principal)
CPT/HCPCS: 36415; 86481

== ENCOUNTER 2025-01-30 09:18 | Outpatient (REF) | payer OTHER, SELFPAY ==
--- OUTSIDE RECORDS SUMMARY | 2025-01-30 10:57 | XMS_ITS | Encounter Summary ---
Author Organization [employer] Address [address] [facility] 7t [place] [address] Care Team Providers Care Counter Attendant Name Role Phone Radha Carbajal MD Primary Care Provide r Reason for Visit * Reason Onset Date Comments Care Coordination 01/29/2025 Lab Orders 01/29/2025 Encounter Details Date Type Department Care Team ([facility] st Contact Info) Description 01/29/2025 Telephone [facility] [address] [place], [place] [phone] Radha Carbajal MD [address] [place], [place] [phone] Care Coordination; Lab Orders Social History Tobacco Use Types Packs/Day Years [...] encounter Miscellaneous Notes * Telephone Encounter - Aaron Castro RN - 01/29/2025 10:53 AM EDT TC placed to patient [phone] using [facility] #ID [id number] regarding a lab draw. This RN informed the patient that his PCP ordered a T-spot to be obtained at the [facility] lab at [facility]. Pt verbalized understanding. PT to F/U PRN. documented in this encounter Plan of Treatment Upcoming Encounters Date Type Department Care Team (Late st Contact Info) Description 02/19/2025 11:00 AM EDT Clinical Support [facility] DIABETES/NUTRITION [address] [place] [address] [place] [address] 03/25/2025 10:00 AM EST Office Visit [facility] MED[facility] [address] [place] [phone] Radha Carbajal MD [address] [place] [address] Scheduled Orders Name Type Priority Associated Diagnoses Orde r Schedule T-SPOT .TB Lab Routine Health care maintenance Expected: 01/29/2025 (Approximate), Expires: 01/29/2026 documented as of this encounter Visit Diagnoses Diagnosis Health care maintenance documented in this encounter Additional Health Concerns Assessment Noted Time PHQ-9 Depression Total Score: 0 12/21/19 25 10:08 AM EDT documented as of this encounter Care Teams Counter Attendant Relationship Specialty Start Date End Date Radha Carbajal MD [address] [place] [address] PCP - General Family Medicine 11/18/21 documented as of this encounter
--- OUTSIDE RECORDS SUMMARY | 2025-01-30 10:57 | XMS_ITS | Encounter Summary ---
Author Organization [employer] Address [address] [facility] [address]t [place] [address] Care Team Providers Care Teacher Asst Name Role Phone Radha Carbajal MD Primary Care Provide r Encounter Details Date Type Department Care Team (Late st Contact Info) Description 09/26/2024 Orders Only [facility] [address] [place], [place] [phone] Radha Carbajal MD [address] [place], [place] [phone] Social History Tobacco Use Types Packs/Day Years [...] Description 02/19/2025 11:00 AM EDT Clinical Support [facility] DIABETES/NUTRITION [address] [place] [address] [place] [address] 03/25/2025 10:00 AM EST Office Visit [facility] MED[facility] [address] [place] [phone] Radha Carbajal MD [address] [place] [phone] documented as of this encounter Visit Diagnoses Not on filedocumented in this encounter Additional Health Concerns Assessment Noted Time PHQ-9 Depression Total Score: 0 12/14/19 24 11:15 AM EDT documented as of this encounter Care Teams Teacher Asst Relationship Specialty Start Date End Date Radha Carbajal MD [address] [place] [phone] PCP - General Family Medicine 11/18/21 documented as of this encounter
--- OUTSIDE RECORDS SUMMARY | 2025-01-30 10:57 | XMS_ITS | Clinical Summary ---
Author Organization [employer] Address [address] [facility] 7t [place] [address] Care Team Providers Care Investment Counselor Name Role Phone Radha Carbajal MD Primary Care Provide r Allergies No known active allergies Medications Ventolin HFA 108 (90 Base) MCG/ACT inhaler 2 puffs every 4 (four) hours if needed. 12/08/19 22 Active ALPRAZolam (Xanax) 0.25 MG tablet Take 0.25 mg by mouth in the morning and at bedtime. 08/27/19 22 Active Blood Glucose Monitoring Suppl ([employer]) w/Device kit TEST BLOOD SUGAR TWICE [...] hyperglycemia, without long-term current use of insulin (CMS/[facility]) Inject 2.5 mg under the skin 1 [...] hyperglycemia, without long-term current use of insulin ([facility]) USE TO TEST BLOOD SUGAR TWICE DAILY [...] PM EST): Apply heat on affected area Team Cdl Driver referral Flexeril and lidocaine patches prescribed COVID-19 [...] Encounters Date Type Department Care Team Description 01/29/[address] [address] Radha Carbajal MD Care Coordination; Lab Orders 01/22/2025 9:30 AM EDT Clinical Support [facility] DIABETES/NUTRITION [address] [place] [address] Type 2 diabetes mellitus with hyperglycemia, without long-term current use of insulin ([facility]) (Primary Dx); Morbid obesity with body mass index (BMI) of 45.0 to 49.9 in adult ([facility]) 01/22/2025 Travel 01/22/[address] [address] Radha Carbajal MD Tspot 01/05/[address] [address] Rosanna Ho DO Type 2 diabetes mellitus with hyperglycemia, without long-term current use of insulin ([facility]) 12/24/2024 11:00 AM EDT Clinical Support [facility] DIABETES/NUTRITION [address] [place] [address] Type 2 diabetes mellitus with hyperglycemia, without long-term current use of insulin ([facility]) (Primary Dx); Morbid obesity with BMI of 45.0-49.9, adult ([facility]) 12/24/2024 Travel 12/21/2024 Refill [facility] CHC MED & PEDS [address] [place] [address] Radha Carbajal MD Pain 12/20/2024 10:00 AM EDT Office Visit [address] [address] Radha Carbajal MD Essential hypertension (Primary Dx); Type 2 diabetes mellitus with hyperglycemia, without long-term current use of insulin (CMS/HCC); Obstructive sleep apnea syndrome; Dietary counseling; Exercise counseling; Class 3 severe obesity due to excess calories with serious comorbidity and body mass index (BMI) of 45.0 to 49.9 in adult 12/20/2024 Travel 12/18/2024 Telephone [facility] MEDICINE [address] [place] [address] Radha Carbajal MD Chart Prep 12/17/2024 Refill [facility] MEDICINE [address] [place] [address] Akil Henderson MD Primary hypertension 12/16/2024 Refill [facility] MED & PEDS [address] [place] [address] Radha Carbajal MD Pain 12/14/2024 Refill [facility] MEDICINE [address] [place] [address] Radha Carbajal MD Type 2 diabetes mellitus with hyperglycemia, without long-term current use of insulin (CMS/HCC) 12/11/2024 Patient Outreach [facility] MEDICINE [address] [place] [address] Radha Carbajal MD Pre-visit Planning ([facility] screening completed on 06/07/2024) 11/26/2024 9:00 AM EDT Clinical Support [facility] DIABETES/NUTRITION [address] [place] [address] Type 2 diabetes mellitus with hyperglycemia, without long-term current use of insulin (CMS/HCC) (Primary Dx); Morbid obesity with BMI of 45.0-49.9, adult (CMS/HCC) 11/26/2024 Travel 11/21/2024 Refill [facility] MED & PEDS [address] [place] [address] Radha Carbajal MD 11/12/2024 10:00 AM EDT Clinical Support [facility] DIABETES/NUTRITION [address] [place] [address] Type 2 diabetes mellitus with hyperglycemia, without long-term current use of insulin ([facility]) (Primary Dx); Morbid obesity with body mass index (BMI) of 45.0 to 49.9 in adult ([facility]) 11/12/2024 Travel from Last 3 Months Immunizations [...] EDT Inhaled Oxygen Concentration - - Weight 131 kg (288 lb 6.4 oz) 01/24/2025 9:08 AM EDT Height 167.6 cm (5' 6 ) 01/24/2025 9:08 AM EDT Body Mass Index 46.55 01/24/2025 9:08 AM EDT Plan of Treatment Upcoming Encounters Date Type Department Care Team (Late st Contact Info) Description 02/19/2025 11:00 AM EDT Clinical Support [facility] DIABETES/NUTRITION [address] [place] [address] [place] [address] 03/25/2025 10:00 AM EST Office Visit [facility] MEDICINE [address] [place] [address] Radha Carbajal MD [address] [place] [address] Health Maintenance Due Date Last Done Comments CT Colonography 1965 Colonoscopy 1965 FIT 1965 Sigmoidoscopy 1965 Hepatitis B Vaccines (1 of 3 - 19+ 3-dose series) 1984 FOBT 03/30/2025 03/30/2024, 02/23/2023 SDOH Screening 06/07/2025 06/07/2024 Diabetes: Hemoglobin A1C 06/22/2025 025, 09/17/2024, 03/15/2024, Additional history exists Alcohol/Substance Use Screening 09/17/2025 09/17/2024 Disability Screening 09/17/2025 09/17/2024 Depression Screening 12/20/2025 12/20/2024, 12/21/19 Tobacco Screening 12/20/2025 12/20/2024 Diabetes: Urine Protein [...] Procedure Name Priority Date/Time Associated Diagnosis Comments T-SPOT(R).TB Routine 01/22/2025 10:25 AM EDT Encounter for screening for respiratory tuberculosis AMB REFERRAL TO PODIATRY Routine 01/03/2025 Onychomycosis [...] Recently Relevant to Health Maintenance Results * T-SPOT??.TB (01/22/2025 10:25 AM EDT) T Spot TB [facility] Comment:TEST NOT PERFORMEDTh e specimen exceeds stability forthe test requested.THIS TEST WAS PERFORMED AT:[employer] [id number] [place] [address]DHHDRFEPILY ALMENDAREZ MD,PHD TS PANEL A [facility] TS PANEL B [facility] Negative Control [facility] Positive Control [facility] 01/22/2025 10:2 5 AM EDT 01/22/2025 11:20 AM EDT us Radha Koenig MD LAB BLOOD ORDERABLES Final Result [facility] [address] [place] [phone] * Referral to Podiatry (01/03/2025) us Radha Koenig MD OUTPATIENT REFERRAL O RDERABLES Final Result * Albumin, Random Urine W/Creatinine (12/24/2024 9:30 AM EDT) Creatinine, Urine 122.79 mg/dL [facility] Microalbumin Urine 28.0 mg/L [facility] Microalbum Creatinine Ratio Ur 22.8 <30 ug/mg cr [facility] Comment:Albumin/Creatinine R atio Reference Ranges: Normal: < 30 ug/mg creatinine Microalbuminuria: 30 - 300 ug/mg creatinineClinical Albuminuria: > 300 ug/mg creatinine Urine (Urine, Random) 12/24/2024 9:30 AM EDT 12/24/2024 11:18 AM EDT us Radha Koenig MD LAB URINE ORDERABLES Final Result Performing Organization Address [facility] Co de Phone Number [facility] [address] [place] [address] [phone] * (ABNORMAL) Lipid Panel, Standard (12/24/2024 9:30 AM EDT) Triglycerides 99 <150 mg/dL [facility] Comment:Desirable Triglyceri de: less than 150 mg/dLBorderline High Triglyceride 150-199 mg/dLHigh Triglyceride: 200-499 mg/dLVery High Triglyceride: greater than or equal to 5OO mg/dL Cholesterol 94 <200 mg/dL [facility] Comment:Desirable Cholestero l: less than 200 mg/dLBorderline High Cholesterol: 200-239 mg/dLHigh Cholesterol: greater than 239 mg/dL LDL Cholesterol Calculated 37 <100 mg/dL [facility] Comment:Desirable LDL: less than 100 mg/dLNear Optimal/Above Optimal LDL: 110- 129 mg/dLBorderline High LDL: 130-159 mg/dLHigh LDL: 160-189 mg/dLVery High LDL: greater than or equal to 190 mg/dL HDL Cholesterol 38(L) >40 mg/dL [facility] Comment:Desirable HDL: great er than 40 mg/dL Note: This HDL assay may give artificially low results in patients with liver disease. Blood Venous blood specimen / Unknown 12/24/2024 9:30 AM EDT 12/24/2024 11:10 AM EDT us Radha Koenig MD LAB BLOOD ORDERABLES Final Result Performing Organization Address [facility] Co de Phone Number [facility] [address] [place] [address] [phone] * (ABNORMAL) Comprehensive Metabolic Panel (12/24/2024 9:30 AM EDT) Sodium 142 135 - 145 mmol/L [facility] Potassium 3.9 3.3 - 5.1 mmol/L [facility] Chloride 111(H) 96 - 108 mmol/L [facility] Carbon Dioxide 22 22 - 29 mmol/L [facility] Anion Gap 13 12 - 20 [facility] Urea Nitrogen (BUN) 16 9 - 16 mg/dL [facility] Creatinine, Serum 0.86 0.5 - 1.4 mg/dL [facility] Estimated Glomerular Filt Rate >60 [facility] Comment:Chronic Kidney Disea se: Estimated GFR < 60 mL/min/1.10m4Wzempy Kidney Disease: Estimated GFR < 15 mL/min/1.73m2 Glucose 151(H) 60 - 115 mg/dL [facility] Calcium 9.5 8.4 - 10.2 mg/dL [facility] Bilirubin, Total 0.6 0.0 - 1.0 mg/dL [facility] Aspartate Amino Transferase 50(H) 5 - 37 U/L [facility] Alanine Aminotransferase 55(H) 0 - 40 U/L [facility] Total Protein 7.8 6.5 - 8.0 g/dL [facility] Albumin Level 4.7 3.5 - 5.0 g/dL [facility] Alkaline Phosphatase 60 39 - 117 U/L [facility] Blood Venous blood specimen / Unknown 12/24/2024 9:30 AM EDT 12/24/2024 11:10 AM EDT us Radha Koenig MD LAB BLOOD ORDERABLES Final Result [facility] [address] [place], [place] [phone] * (ABNORMAL) POCT HGB A1C (12/20/2024 10:10 AM EDT) Hemoglobin A1C 6.0(A) 4.0 - 5.7 % QC Media Lot # [id number] Lot# Expiration Date 69 Blood 12/20/2024 10:1 0 AM EDT us Radha Koenig MD POINT OF CARE TEST EN TER/EDIT ORDERABLES Final Result * (ABNORMAL) POCT Glucose (12/20/2024 10:06 AM EDT) Glucose Blood, POC 209(A) 60 - 200 mg/dL QC Media Lot # [id number] Lot# Expiration Date [id number] Blood Capillary blood specimen / Unknown 12/20/2024 10:06 AM EDT us Radha Koenig MD POINT OF CARE TEST EN TER/EDIT ORDERABLES Final Result * Cologuard?? colon cancer screening (03/30/2024 12:08 AM EST) Cologuard Result Negative Negative 04/07/20 12:55 AM EST [facility] (CLIA #:[id number]) Comment: NEGATIVE TEST RESULT. A negative Cologuard [...] (Airam Stiles al, N Engl J Med 2014;370(14):5899-8812) The normal value (reference range) for this assay is negative. COLOGUARD RE-SCREENING RECOMMENDATION: Periodic colorectal cancer screening is an important part of preventive healthcare for asymptomatic individuals at average risk for colorectal cancer. Following a negative Cologuard result, the [place] [employer] Society and U.S. Multi-Society Task Force screening guidelines recommend a Cologuard re-screening interval of 3 years. References: [place] [employer] Guideline for Colorectal Cancer Screening: https://www.cancer.org/cancer/ssagn-kuleuo-exzyvf/wejdcbwvx-cjscsgqoi-xepbolu/ac s-rec ommendations.html.; Tim DK, Sadi CR, Binh GreenK, Colorectal Cancer Screening: Recommendations for Physicians and Patients from the U.S. Multi-Society Task Force on Colorectal Cancer Screening , Am J Gastroenterology 2017; 112:0026-0950. TEST DESCRIPTION: Composite algorithmic analysis of stool [...] screened with both Cologuard and colonoscopy. (Airam Rios et al, N Engl J Med 2014;370(14):7358-9108.) Cologuard may produce a false negative or false positive result (no colorectal cancer or precancerous polyp present at colonoscopy follow up). A negative Cologuard test result does not guarantee the absence of CRC or advanced adenoma (pre-cancer). The current Cologuard screening interval is every 3 years. ([place] [employer] and U.S. Multi-Society Task Force). Cologuard performance data in a 10,000 patient pivotal study using colonoscopy as the reference method can be accessed at the following location: www.[employer]ell[employer].TBS/results. Additional description of the Cologuard test process, warnings and precautions can be found at www.BlackLine Systemsrd.com. Stool specimen (specimen) 03/30/2024 12:08 AM EST 03/31/2024 12:28 PM EST Radha Koenig MD LAB MOLECULAR DIAGNOS TICS ORDERABLES Final Result Performing Organization Address City/[facility]/ZIP Co de Phone Number [facility] (CLIA #:[id number]) [place] [address], * Hepatitis C Viral RNA, Quantitative, Real-Time PCR (12/14/2023 12:12 PM EDT) Pathologist [facility] Hepatitis C Viral Load <15 NOT DETECTED NOT DETECTED IU/mL [facility] HCV Log PCR <1.18 NOT DETECTED NOT DETECTED Log IU/mL [facility] Comment:For additional infor stephane, please refer tohttp://education.Abigail Stewart/faq/WHK11b2(This link is being provided for informational/educational purposes only.)THIS TEST WAS PERFORMED AT:[employer] [place] [id number] POPE MD Blood 12/14/2023 12:1 2 PM EDT 12/14/2023 12:57 PM EDT Radha Koenig MD LAB BLOOD ORDERABLES Final Result Performing Organization Address [facility] Co de Phone Number [facility] [address] [place] [phone] * HIV-1/2 Antigen and Antibodies, Fourth Generation, with Reflexes (12/14/2023 12:12 PM EDT) Pathologist [facility] HIV AB/AG Nonreactive Nonreactive [facility] Comment:HIV-1 p24 Ag and/or HIV-1/HIV-2 Ab not detected.A test result that is nonreactive does not exclude thepossibility of exposure to or infection with HIV-1 and/orHIV-2. Nonreactive results in this assay for individualswith prior exposure to HIV-1 and/or HIV-2 may be due toantigen and antibody levels that are below the limit ofdetection of this assay.The [employer] Alinity HIV Ag/Ab Combo assay result andsupplemental assay results should be interpreted inconjunction with the patient's clinical presentation,history and other laboratory results. If the results areinconsistent with clinical evidence, additional testing issuggested to confirm the result. Blood Venous blood specimen / Unknown 12/14/2023 12:12 PM EDT 12/14/2023 12:57 PM EDT us Radha Koenig MD LAB BLOOD ORDERABLES Final Result [facility] [address] [place] [phone] from Last 3 Months or Most Recently Relevant to Health Maintenance Insurance [facility] ONE CARE < [address] [place] [id number] [place] [address] Care Teams Investment Counselor Relationship Specialty Start Date End Date Radha Carbajal MD [address] [place] [address] PCP - General Family Medicine 11/18/21
--- OUTSIDE RECORDS SUMMARY | 2025-01-30 10:57 | XMS_ITS | Encounter Summary ---
Author Organization [employer] Address [address] [facility] 7t [place] [address] Care Team Providers Care Kosher Butcher Name Role Phone Radha Carbajal MD Primary Care Provide r Reason for Visit * Reason Comments Med Refill Encounter Details Date Type Department Care Team ([facility] st Contact Info) Description 12/16/2024 Refill [facility] CHC MED & PEDS [address] [place], [place] [phone] Radha Carbajal MD [address] [place], [place] [phone] Pain Social History Tobacco Use Types Packs/Day [...] Description 02/19/2025 11:00 AM EDT Clinical Support [facility] DIABETES/NUTRITION [address] [place] [address] [place] [address] 03/25/2025 10:00 AM EST Office Visit [facility] MEDICINE [address] [place] [address] Radha Carbajal MD [address] [place] [address] documented as of this encounter Visit Diagnoses Diagnosis Pain Generalized pain documented in this encounter Additional Health Concerns Assessment Noted Time PHQ-9 Depression Total Score: 0 12/14/19 24 11:15 AM EDT documented as of this encounter Care Teams Kosher Butcher Relationship Specialty Start Date End Date Radha Carbajal MD [address] [place] [address] PCP - General Family Medicine 11/18/21 documented as of this encounter
--- OUTSIDE RECORDS SUMMARY | 2025-01-30 10:57 | XMS_ITS | Patient Health Record ---
Author Organization - [facility] [place] Address [address] [place] [address] Care Team Providers Care Lead Medical Technologist Name Role Phone FERNANDA BAKER Primary Care Provider Dona Horton Unavailable [phone] Reason For Referral No Information Medications Medication [...] Status W/U Status Risk Notes Problem Hyperlipidemia (68894768) Hyperlipidemia, unspecified (E78.5) Active confirmed Problem Type II diabetes mellitus without complication (205605687) Type 2 diabetes mellitus without complications (E11.9) Active confirmed Problem Diabetic peripheral neuropathy associated with type 2 diabetes mellitus (6477582041279) Type 2 diabetes mellitus with diabetic neuropathy, unspecified (E11.40) Active confirmed Problem Sleep apnea (95675125) Sleep apnea, unspecified (G47.30) Active confirmed Problem Essential hypertension (32611905) Essential (primary) hypertension (I10) Active confirmed Problem Angina pectoris (095912841) Angina pectoris, unspecified (I20.9) Active confirmed Problem 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) (37174452526452266) 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) Active confirmed Problem Heart failure (13435993) Heart failure, unspecified (I50.9) Active confirmed Problem Fibromyalgia (327096665) Fibromyalgia (M79.7) Active confirmed Problem Specialized medical examination (85685501) Encounter for other specified special examinations (Z01.89) Active confirmed Plan Of Treatment Pending Test Test Name Order Date Nuclear Stress Test 03/03/2016 Insurance Providers Payer Name Payer Address Payer Phone Subscriber Number Group Number Insured Name Patient Relationship to Insured Coverage Start Date Coverage End Date [facility] [address] [address] [place] [phone] [id number] BREA ZHOU Self - patient is the insured Medical (General) History Medical History History ICD Code HTN DM DEPRESSION SLEEP APNEA WAITING FOR CPAP MACHINE 12/2015 ECHO EF 55-60% NO 06/14/2016 NST EQUIVOCAL RESULTS Surgical History Surgery Date(Month/Year) CHOLECYSTECTOMY 2010 [facility] SURGERY Hospitalization History Reason Date(Month/Year) abdominal pain 2010
--- OUTSIDE RECORDS SUMMARY | 2025-01-30 10:57 | XMS_ITS | Encounter Summary ---
Author Organization [employer] Address [address] [facility] 7t [place] [address] Care Team Providers Care Diamond Picker Name Role Phone Radha Carbajal MD Primary Care Provide r Reason for Visit * Reason Onset Date Comments FYI 08/07/2024 Encounter Details Date Type Department Care Team ([facility] st Contact Info) Description 08/07/2024 Telephone [facility] MEDICINE [address] [place], [place] [phone] Radha Carbajal MD [address] [place], [place] [phone] FYI Social History Tobacco Use Types Packs/Day [...] - 08/07/2024 3:51 PM EDT Tc from [facility] with [facility] to report pt keeps changing cpap machine pressure. Any questions contact [phone] documented in this encounter Plan of Treatment Upcoming Encounters Date Type Department Care Team (Late st Contact Info) Description 02/19/2025 11:00 AM EDT Clinical Support [facility] DIABETES/NUTRITION [address] [place] [address] Petra Chin, MERY [address] [place] [address] 03/25/2025 10:00 AM EST Office Visit [facility] MEDICINE [address] [place], [place] [phone] Radha Carbajal MD [address] [place], [place] [phone] documented as of this encounter Visit Diagnoses Not on filedocumented in this encounter Additional Health Concerns Assessment Noted Time PHQ-9 Depression Total Score: 0 12/14/19 24 11:15 AM EDT documented as of this encounter Care Teams Diamond Picker Relationship Specialty Start Date End Date Radha Carbajal MD [address] [place] [address] PCP - General Family Medicine 11/18/21 documented as of this encounter
--- OUTSIDE RECORDS SUMMARY | 2025-01-30 10:57 | XMS_ITS | Clinical Summary ---
Author Organization [address] [facility] Address [address] [place] [address] Phone Care Team Providers Care Stave Grader Name Role Phone Radha Carbajal MD Primary [...] 9:15 AM EDT Office Visit Orthopedic Surgery [facility] [address] [facility] [address] [place] [address] Abhinav Wilson, DPM Metatarsalgia of [...] AM EST Office Visit [facility] [place] [address] [facility] [address] [place] [address] Abhinav Wilson, DPLukasz 175 [facility] [address] [place] [address] 04/10/2025 2:30 PM EST Consult Vascular Surgery [facility] [place] [address] [place] [phone] Fariba Borja MD [address] [place] [phone] Health Maintenance Due Date Last Done Comments [...] patient's age to complete this topic Insurance [facility] [place] MEDICARE Member Subscriber Plan / Payer (Ef fective 2021-Present) Name:JON CHAN Relation to Subscriber:Self Name:Jon Chan Payer ID:[id number] Group ID:[id number] Type:Not on file Address: [address] [place] [id number] Care Teams Stave Grader Relationship Specialty Start Date End Date Radha Carbajal MD [address] [place] [phone] PCP - General Internal Medicine 03/27/24
--- OUTSIDE RECORDS SUMMARY | 2025-01-30 10:57 | XMS_ITS | Encounter Summary ---
Author Organization [employer] Address [address] [facility] 7t [place] [address] Care Team Providers Care Counselor Nurses' Association Name Role Phone Radha Carbajal MD Primary Care Provide r Encounter Details Date Type Department Care Team (Late Contact Info) Description 04/29/2022 Telephone [facility] MEDICINE [address] [place] [phone] Radha Carbajal MD [address] [place] [phone] Social History Tobacco Use Types Packs/Day Years [...] 11:00 AM EDT Clinical Support [facility] DIABETES/NUTRITION [address] [place] [phone] Petra Chin, MERY [address] [place] [phone] 03/25/2025 10:00 AM EST Office Visit [facility] MEDICINE [address] [place] [address] Radha Carbajal MD [address] [place] [address] documented as of this encounter Visit Diagnoses Not on filedocumented in this encounter Care Teams Counselor Nurses' Association Relationship Specialty Start Date End Date Radha Carbajal MD [address] [place] [address] PCP - General Family Medicine 11/18/21 documented as of this encounter
--- OUTSIDE RECORDS SUMMARY | 2025-01-30 10:57 | XMS_ITS | Encounter Summary ---
Author Organization [employer] Address 75 [facility] 7t [place] [address] Care Team Providers Care Damascener Name Role Phone Radha Carbajal MD Primary Care Provide r Encounter Details Date Type Department Care Team (Late Contact Info) Description 01/28/[address] [facility] MEDICINE [address] [place] [address] [phone] Radha Carbajal MD [address] [place] [address] [phone] Social History Tobacco Use Types Packs/Day Years [...] Description 02/19/2025 11:00 AM EDT Clinical Support [facility] DIABETES/NUTRITION [address] [place] [address] [place] [address] 03/25/2025 10:00 AM EST Office Visit [facility] MEDICINE [address] [place] [address] Radha Carbajal MD 230 [place] [address] documented as of this encounter Visit Diagnoses Not on filedocumented in this encounter Additional Health Concerns Assessment Noted Time PHQ-9 Depression Total Score: 7 08/27/19 23 12:00 PM EDT documented as of this encounter Care Teams Damascener Relationship Specialty Start Date End Date Radha Carbajal MD 230 [place] [address] PCP - General Family Medicine 11/18/21 documented as of this encounter
--- OUTSIDE RECORDS SUMMARY | 2025-01-30 10:57 | XMS_ITS | Encounter Summary ---
Author Organization [employer] Address 75 [facility] 7t [place] [address] Care Team Providers Care Mobile Development Manager Name Role Phone Radha Carbajal MD Primary Care Provide r Reason for Visit * Reason Comments Med Refill Encounter Details Date Type Department Care Team ([facility] st Contact Info) Description 06/14/2024 Refill [facility] CHC MED & PEDS [address] [place], [place] [phone] Radha Carbajal MD 230 [place], [place] [phone] Pain Social History Tobacco Use Types Packs/Day [...] Description 02/19/2025 11:00 AM EDT Clinical Support [facility] DIABETES/NUTRITION [address] [place] [address] [place] [address] 03/25/2025 10:00 AM EST Office Visit [facility] MEDICINE [address] [place] [address] Radha Carbajal MD [address] [place] [address] documented as of this encounter Visit Diagnoses Diagnosis Pain Generalized pain documented in this encounter Additional Health Concerns Assessment Noted Time PHQ-9 Depression Total Score: 0 12/14/19 24 11:15 AM EDT documented as of this encounter Care Teams Mobile Development Manager Relationship Specialty Start Date End Date Radha Carbajal MD [address] [place] [address] PCP - General Family Medicine 11/18/21 documented as of this encounter
--- OUTSIDE RECORDS SUMMARY | 2025-01-30 10:57 | XMS_ITS | Encounter Summary ---
Author Organization [employer] Address 75 [facility] 7t [place] [address] Care Team Providers Care Police Booking Officer Name Role Phone Radha Carbajal MD Primary Care Provide r Reason for Visit * Reason Comments Med Refill Encounter Details Date Type Department Care Team (Late st Contact Info) Description 01/18/2023 Refill [facility] 230 [place], [place] [phone] Akil Henderson MD 230 [place], [place] [phone] Primary hypertension Social History Tobacco Use Types [...] Description 02/19/2025 11:00 AM EDT Clinical Support [facility] DIABETES/NUTRITION 230 [place], [place] [phone] [address] 230 [place] [address] 03/25/2025 10:00 AM EST Office Visit [facility] MEDICINE 230 [place] [address] Radha Carbajal MD 230 [place] [address] documented as of this encounter Visit Diagnoses Diagnosis Primary hypertension Unspecified essential hypertension documented in this encounter Additional Health Concerns Assessment Noted Time PHQ-9 Depression Total Score: 7 08/27/19 23 12:00 PM EDT documented as of this encounter Care Teams Police Booking Officer Relationship Specialty Start Date End Date Radha Carbajal MD 230 [place] [address] PCP - General Family Medicine 11/18/21 documented as of this encounter
--- OUTSIDE RECORDS SUMMARY | 2025-01-30 10:57 | XMS_ITS | Encounter Summary ---
Author Organization [employer] Address 75 [facility] 7t [place] [address] Care Team Providers Care Mill Tender Warm Up Name Role Phone Radha Carbajal MD Primary Care Provide r Reason for Visit * Reason Comments Med Refill Encounter Details Date Type Department Care Team ([facility] st Contact Info) Description 05/11/2023 Refill [facility] MEDICINE 230 [place], [place] [phone] Pamela Hewitt MD 230 [place], [place] [phone] Pain Social History Tobacco Use Types Packs/Day [...] with others, in a hotel, in a halfway, living outside on the street, on a [...] Description 02/19/2025 11:00 AM EDT Clinical Support [facility] DIABETES/NUTRITION [address] [place] [address] [place] [address] 03/25/2025 10:00 AM EST Office Visit [facility] MEDICINE [address] [place] [address] Radha Carbajal MD [address] [place] [address] documented as of this encounter Visit Diagnoses Diagnosis Pain Generalized pain documented in this encounter Additional Health Concerns Assessment Noted Time PHQ-9 Depression Total Score: 7 08/27/19 23 12:00 PM EDT documented as of this encounter Care Teams Mill Tender Warm Up Relationship Specialty Start Date End Date Radha Carbajal MD [address] [place] [address] PCP - General Family Medicine 11/18/21 documented as of this encounter
--- OUTSIDE RECORDS SUMMARY | 2025-01-30 10:57 | XMS_ITS | Encounter Summary ---
Author Organization [employer] Address 75 [facility] 7t [place] [address] Care Team Providers Care Private Branch Exchange Installer Name Role Phone Radha Carbajal MD Primary Care Provide r Reason for Visit * Reason Comments Med Refill Encounter Details Date Type Department Care Team ([facility] st Contact Info) Description 08/22/2024 Refill [facility] MEDICINE 230 [place], [place] [phone] Radha Carbajal MD 230 [place] [address] Chronic midline low back pain with right-sided [...] Description 02/19/2025 11:00 AM EDT Clinical Support [facility] DIABETES/NUTRITION 230 [place] [address] [place] [address] 03/25/2025 10:00 AM EST Office Visit [facility] MEDICINE 230 [place] [address] Radha Carbajal MD 230 [place] [address] documented as of this encounter Visit Diagnoses Diagnosis Chronic midline low back pain with right-sided sciatica Pain Generalized pain documented in this encounter Additional Health Concerns Assessment Noted Time PHQ-9 Depression Total Score: 0 12/14/19 24 11:15 AM EDT documented as of this encounter Care Teams Private Branch Exchange Installer Relationship Specialty Start Date End Date Radha Carbajal MD [address] [place] [phone] PCP - General Family Medicine 11/18/21 documented as of this encounter
[2025-02-02 07:58] LABS: TS Negative Control Passed; TS Panel A 1; TS Panel B 0; TS Positive Control Passed; TSpotTB Negative (Negative)
== END 2025-01-30 09:19 | disposition home or self-care (01) ==
LOC: HO.HHCL 09:18
PROVIDERS: PCP Internal Medicine; Visit Provider Internal Medicine
DX: Z11.1 Encounter for screening for respiratory tuberculosis (principal)
CPT/HCPCS: 36415; 86481

== ENCOUNTER 2025-02-07 07:51 | Outpatient (AMB) | payer OTHER, SELFPAY ==
--- OUTSIDE RECORDS SUMMARY | 2024-11-17 05:00 | XMS_ITS ---
Author Organization [facility] [place] Address [address] [place], [place] [address] Care Team Providers Care Residential Pest Control Technician Name Role Phone Migration, Provider Unavailable [phone] REASON FOR VISIT EMR-Angelito Encounters Encounter Location Date Provider Diagnosis [facility] [address] [id number] 11/17/2024 Provider Migration Plan Of Treatment Medication Medication Name Sig Start Date Stop Date Notes Sulfamethoxazole-Trimetho prim 800-160 MG Route: Orally Frequency: Twice a day Take: 1 tablet Quantity: 20 Oral 09/13/2018 9 Status: Discontinued Original Code: [id number] Brand: SULFAMETHOXAZOLE-TRIMETH OPRIM Gen: sulfamethoxazole/trimeth oprim Tamsulosin HCl 0.4 MG Route: Orally Frequency: Once a day Take: 1 capsule Quantity: 90 Oral 03/26/2021 1 Status: Discontinued Original Code: [address]-42 Brand: Tamsulosin HCl Rosuvastatin Calcium 20 MG Route: Orally Frequency: Once a day Take: 1 tablet Oral 08/14/2020 1 Status: Taking Original Code: [address]-17 Brand: Rosuvastatin Calcium Silver sulfADIAZINE Route: Externally Frequency: twice daily Take: 1 application to affected area Quantity: 100 Gram 09/13/2018 9 Status: Discontinued Original Code: [address]-26 Brand: Silver sulfADIAZINE *Pick strength-form from [facility] for eRX* Ranitidine HCl Route: Orally Frequency: bid Take: 1 tablet Quantity: 180 Tablet 10/31/2020 1 Status: Discontinued Original Code: [address]-44 Brand: Ranitidine HCl *Reorder from [facility] for eRx and Interaction Alerts* metFORMIN HCl 500 MG Route: Orally Frequency: Once a day Take: 1 tablet with a meal (dinner) Oral 07/17/2019 0 Status: Stop Original Code: [address]-88 Brand: metFORMIN HCl Methocarbamol 500 MG Route: Orally Frequency: every 8 hrs Take: 1 tablet Quantity: 15 Tablet Oral 03/20/2020 0 Status: Start Original Code: [address]-70 Brand: Methocarbamol Meloxicam 15 MG Route: Orally Frequency: Once a day as needed for pain Take: 1 tablet Quantity: 30 Oral 01/25/2020 0 Status: Refill Original Code: [address]-50 Brand: Meloxicam Naproxen Sodium 220 MG Route: Orally Frequency: every 12 hrs Take: 1 tablet with food or milk as needed Quantity: 20 Tablet Oral 02/28/2020 0 Status: Start Original Code: [address]-55 Brand: Naproxen Nitroglycerin 0.4 MG Route: Sublingual Frequency: Once a day Take: 1 tablet every 5 min as needed for chest pain. Max 3 doses in 15 minutes Sublingual 03/26/2021 1 Status: Taking Original Code: [address]-46 Brand: Nitroglycerin Lisinopril Route: Orally Frequency: Once a day Take: 1 tablet Quantity: 90 03/26/2021 1 Status: Refill Original Code: [id number] Brand: LISINOPRIL Gen: lisinopril *Pick strength-form from [facility] for eRX* LORazepam Route: Orally Frequency: Twice a day Take: 1 tablet at bedtime as needed 10/31/2020 1 Status: Discontinued Original Code: [id number] Brand: LORAZEPAM Gen: lorazepam *Pick strength-form from [facility] for eRX* glipiZIDE 2.5 MG Route: Orally Frequency: two times a day Take: 1 tablet Oral 03/26/2021 1 Status: Not-Taking/PRN Original Code: [id number] Brand: GLIPIZIDE Gen: glipizide hydroCHLOROthiazide 25 MG Route: Orally Frequency: Once a day Take: 1 capsule in the morning Quantity: 90 Oral 03/26/2021 1 Status: Refill Original Code: [address]-96 Brand: hydroCHLOROthiazide Meclizine HCl 25 MG Route: Orally Frequency: twice a day Take: 1 tablet as needed Oral 03/17/2016 6 Status: Discontinued Original Code: [id number] Brand: MECLIZINE HCL Gen: meclizine HCl Ciprodex Route: Otic Frequency: Twice a day Take: 4 drops into affected ear Quantity: 1 Bottle 03/07/2019 9 Status: Discontinued Original Code: [address]-28 Brand: Ciprodex *Reorder from [facility] for eRx and Interaction Alerts* Diclofenac Sodium 1 % Route: Externally Frequency: three times daily Take: as directed Quantity: 100 External 12/18/2020 1 Status: Taking Original Code: [address]-23 Brand: Diclofenac Sodium Gabapentin 100 MG Route: Orally Frequency: bid Take: 1 tablet Oral 03/26/2021 1 Status: Taking Original Code: 60876718292 Brand: GABAPENTIN Gen: gabapentin Ezetimibe 10 MG Route: Orally Frequency: Once a day Take: 1 tablet Quantity: 90 Oral 08/14/2020 1 Status: Refill Original Code: [address]-86 Brand: Ezetimibe FLUoxetine HCl Route: Orally Frequency: Once a day Take: 1 capsule 03/26/2021 1 Status: Taking Original Code: [address]-30 Brand: FLUoxetine HCl *Pick strength-form from [facility] for eRX* amLODIPine Besylate 5 MG Route: Orally Frequency: Once a day Take: 1 tablet Quantity: 90 Oral 03/26/2021 1 Status: Refill Original Code: [address]-44 Brand: amLODIPine Besylate Carbamide Peroxide Route: Otic Frequency: Twice a day Take: 5 drops into affected ear Quantity: 1 Bottle 02/12/2021 1 Status: Start Original Code: [id number] Brand: CARBAMIDE PEROXIDE Gen: CARBAMIDE PEROXIDE *Pick strength-form from [facility] for eRX* ALPRAZolam 0.25 MG Route: Orally Frequency: Twice a day Take: 1 tablet Quantity: 60 Oral 08/23/2018 9 Status: Taking Original Code: [address]-02 Brand: ALPRAZolam Carvedilol 3.125 MG Route: Orally Frequency: Twice a day Take: 1 tablet with food Quantity: 180 Oral 03/26/2021 1 Status: Refill Original Code: [address]-17 Brand: Carvedilol Cilostazol Route: Orally Frequency: Twice a day Take: 1 tablet 30 minutes before or 2 hours after breakfast and dinner Quantity: 180 05/17/2018 9 Status: Discontinued Original Code: [address]-54 Brand: Cilostazol *Pick strength-form from [facility] for eRX* TRUE METRIX Route: IN VITRO Frequency: twice a day Take: as directed Quantity: 180 10/31/2020 1 Status: Discontinued Original Code: 91686695969 Brand: TRUE METRIX GLUCOSE TEST STRIP Gen: blood sugar diagnostic *Reorder from [facility] for eRx and Interaction Alerts* TRUE METRIX AIR Route: IN VITRO Frequency: twice a day Take: misc 06/07/2018 9 Status: Discontinued Original Code: [id number] Brand: TRUE METRIX AIR GLUCOSE METER Gen: blood-glucose meter *Reorder from [facility] for eRx and Interaction Alerts* Myrbetriq 50 MG Route: Orally Frequency: Once a day Take: 1 tablet Oral 03/26/2021 1 Status: Taking Original Code: [address]-64 Brand: Myrbetriq oxyBUTYnin Chloride ER 5 MG Route: Orally Frequency: Once a day Take: 1 tablet Quantity: 30 Oral 08/14/2020 1 Status: Start Original Code: [address]-51 Brand: Oxybutynin Chloride ER Albuterol Sulfate (2.5 MG/3ML) 0.083% Route: Inhalation Frequency: Three times a day Take: 3 ml Quantity: 50 Vials Inhalation 03/26/2021 1 Status: Taking Original Code: [id number] Brand: ALBUTEROL SULFATE Gen: albuterol sulfate Lancets 30G Route: in vitro Frequency: twice a day Take: as directed Quantity: 200 03/26/2021 1 Status: Taking Original Code: 05477560361 Brand: LANCETS Gen: LANCETS Probiotic Route: Orally Frequency: Twice a day Take: 1 capsule Quantity: 60 10/31/2020 1 Status: Taking Original Code: 63351-37968 Brand: Probiotic *Pick strength-form from [facility] for eRX* Vitamin D (Ergocalciferol) [address]25 UNIT Route: Orally Frequency: once a month Take: 1 capsule Quantity: 12 Oral 12/18/2020 2 Status: Taking Original Code: [address]-54 Brand: Ergocalciferol glipiZIDE ER Route: Orally Frequency: twice a day Take: 1 tablet with breakfast Quantity: 180 11/20/2020 1 Status: Refill Original Code: [address]-11 Brand: glipiZIDE ER *Pick strength-form from [facility] for eRX* metFORMIN HCl ER 750 MG Route: Orally Frequency: Once a day Take: 1 tablet with evening meal Quantity: 90 Oral 12/18/2020 1 Status: Refill Original Code: [address]-77 Brand: metFORMIN HCl ER tiZANidine HCl 2 MG Route: Orally Frequency: Three times a day as needed Take: 1 tablet as needed Quantity: 90 tablets Oral 12/27/2018 9 Status: Taking Original Code: [address]-45 Brand: tiZANidine HCl Ventolin HFA 108 (90 Base) MCG/ACT Route: Inhalation Frequency: every 4 hrs Take: 2 puffs as needed Quantity: 1 Inhalation 03/26/2021 1 Status: Taking Original Code: [address]-81 Brand: Ventolin HFA Progress Notes * Leonard CHANOB: (59 yo M)Acc No.[id number]:11/17/2024 Patient: S Jon DELACRUZ :1965 A ge:58 Y S ex:Male Address:[address] [place] [address], [address] * Refills Stop Albuterol Sulfate Nebulization Solution, (2.5 MG/3ML) 0.083%, Inhalation, 50, Route: Inhalation Frequency: Three times a day Take: 3 ml Quantity: 50 Vials Stop ALPRAZolam Tablet, 0.25 MG, Oral, 60, Route: Orally Frequency: Twice a day Take: 1 tablet Quantity: 60 Stop amLODIPine Besylate Tablet, 5 MG, Oral, 90, Route: Orally Frequency: Once a day Take: 1 tablet Quantity: 90 Stop Carbamide Peroxide, 1, Route: Otic Frequency: Twice a day Take: 5 drops into affected ear Quantity: 1 Bottle Stop Carvedilol Tablet, 3.125 MG, Oral, 180, Route: Orally Frequency: Twice a day Take: 1 tablet with food Quantity: 180 Stop Cilostazol, 180, Route: Orally Frequency: Twice a day Take: 1 tablet 30 minutes before or 2 hours after breakfast and dinner Quantity: 180 Stop Ciprodex, 1, Route: Otic Frequency: Twice a day Take: 4 drops into affected ear Quantity: 1 Bottle Stop Diclofenac Sodium Gel, 1 %, External, 100, Route: Externally Frequency: three times daily Take: as directed Quantity: 100 Stop Ezetimibe Tablet, 10 MG, Oral, 90, Route: Orally Frequency: Once a day Take: 1 tablet Quantity: 90 Stop FLUoxetine HCl, 0, Route: Orally Frequency: Once a day Take: 1 capsule Stop Gabapentin Capsule, 100 MG, Oral, 0, Route: Orally Frequency: bid Take: 1 tablet Stop glipiZIDE Tablet, 2.5 MG, Oral, 0, Route: Orally Frequency: two times a day Take: 1 tablet Stop hydroCHLOROthiazide Tablet, 25 MG, Oral, 90, Route: Orally Frequency: Once a day Take: 1 capsule in the morning Quantity: 90 Stop Lisinopril, 90, Route: Orally Frequency: Once a day Take: 1 tablet Quantity: 90 Stop LORazepam, 0, Route: Orally Frequency: Twice a day Take: 1 tablet at bedtime as needed Stop Meclizine HCl Tablet, 25 MG, Oral, 0, Route: Orally Frequency: twice a day Take: 1 tablet as needed Stop Meloxicam Tablet, 15 MG, Oral, 30, Route: Orally Frequency: Once a day as needed for pain Take: 1 tablet Quantity: 30 Stop metFORMIN HCl Tablet, 500 MG, Oral, 0, Route: Orally Frequency: Once a day Take: 1 tablet with a meal (dinner) Stop Methocarbamol Tablet, 500 MG, Oral, 15, Route: Orally Frequency: every 8 hrs Take: 1 tablet Quantity: 15 Tablet Stop Naproxen Sodium Tablet, 220 MG, Oral, 20, Route: Orally Frequency: every 12 hrs Take: 1 tablet with food or milk as needed Quantity: 20 Tablet Stop Nitroglycerin Tablet Sublingual, 0.4 MG, Sublingual, 0, Route: Sublingual Frequency: Once a day Take: 1 tablet every 5 min as needed for chest pain. Max 3 doses in 15 minutes Stop Ranitidine HCl, 180, Route: Orally Frequency: bid Take: 1 tablet Quantity: 180 Tablet Stop Rosuvastatin Calcium Tablet, 20 MG, Oral, 0, Route: Orally Frequency: Once a day Take: 1 tablet Stop Silver sulfADIAZINE, 100, Route: Externally Frequency: twice daily Take: 1 application to affected area Quantity: 100 Gram Stop Sulfamethoxazole-Trimethoprim Tablet, 800-160 MG, Oral, 20, Route: Orally Frequency: Twice a day Take: 1 tablet Quantity: 20 Stop Tamsulosin HCl Capsule, 0.4 MG, Oral, 90, Route: Orally Frequency: Once a day Take: 1 capsule Quantity: 90 Stop tiZANidine HCl Capsule, 2 MG, Oral, 90, Route: Orally Frequency: Three times a day as needed Take: 1 tablet as needed Quantity: 90 tablets Stop Ventolin HFA Aerosol Solution, 108 (90 Base) MCG/ACT, Inhalation, 1, Route: Inhalation Frequency: every 4 hrs Take: 2 puffs as needed Quantity: 1 Stop Lancets 30G, 200, Route: in vitro Frequency: twice a day Take: as directed Quantity: 200 Stop Probiotic, 60, Route: Orally Frequency: Twice a day Take: 1 capsule Quantity: 60 Stop Vitamin D (Ergocalciferol) Capsule, [address]3451 UNIT, Oral, 12, Route: Orally Frequency: once a month Take: 1 capsule Quantity: 12 Stop glipiZIDE ER, 180, Route: Orally Frequency: twice a day Take: 1 tablet with breakfast Quantity: 180 Stop metFORMIN HCl ER Tablet Extended Release 24 Hour, 750 MG, Oral, 90, Route: Orally Frequency: Once a day Take: 1 tablet with evening meal Quantity: 90 Stop Myrbetriq Tablet Extended Release 24 Hour, 50 MG, Oral, 0, Route: Orally Frequency: Once a day Take: 1 tablet Stop oxyBUTYnin Chloride ER Tablet Extended Release 24 Hour, 5 MG, Oral, 30, Route: Orally Frequency: Once a day Take: 1 tablet Quantity: 30 Stop TRUE METRIX, 180, Route: IN VITRO Frequency: twice a day Take: as directed Quantity: 180 Stop TRUE METRIX AIR, 0, Route: IN VITRO Frequency: twice a day Take: misc Subjective: * Chief Complaints: * E MR-Angelito * Medical History: * Surgical History: * Hospitalization/Major Diagno stic Procedure: * Medications: Objective: * Vitals: * Physical Examination: Assessment: Plan: * Treatment: * Procedure Codes: * * Date:
--- OUTSIDE RECORDS SUMMARY | 2024-11-18 05:00 | XMS_ITS ---
Author Organization [employer] [employer] [facility] [place] Address [address] [id number] Care Team Providers Care Operator Automated Process Name Role Phone Migration, Provider Unavailable [phone] REASON FOR VISIT [facility] [place] Medications Medication SIG (Take, Route, Frequency, Duration) Notes Start Date End Date Status True Metrix Blood Glucose Test - Route: In Vitro Frequency: 2 time a day Take: USE ABIMAEL LO INDICADO DOS VECES AL LORELEI Quantity: 200 In Vitro Status: Refill Original Code: [id number] Brand: TRUE METRIX GLUCOSE TEST STRIP Gen: blood sugar diagnostic 08/11/2021 Active Encounters Encounter [facility] Date [facility] [address] [id number] 11/18/2024 Provider Migration Plan Of Treatment No Information Progress Notes * Estella CHANelDOB: (59 yo M)Acc No.[id number]:11/18/2024 Patient: Jon VILLASENOR :1965 A ge:58 Y S ex:Male Address:[address] [place] [address], [facility] Subjective: * Chief Complaints: * E MR-Angelito * Medical History: * Surgical History: Sx_Procedure : DRAIN/MJ JOINT/BURSA W/O US 2018 Sx_Procedure : Hyalgan/supartz inj per dose 2018 Sx_Procedure : TTE W/DOPPLER COMPLETE 2018 Sx_Procedure : Dexamethasone sodium phos 2019 Sx_Procedure : Ketorolac tromethamine inj 2019 Sx_Procedure : LOWER EXTREMITY STUDY 2021 Sx_Procedure : Moderna COVID-19 Vaccine Booster 2021 Sx_Procedure : Quantiflo-Single Layer 2021 Sx_Procedure : dm SARscov2 50mcg/o 2.5ml BST 2021 Sx_Procedure : INFRARED THERAPY 2021 * Hospitalization/Major Diagno stic Procedure: * Medications: T akingTrue Metrix Blood Glucose Test - Strip Route: In Vitro Frequency: 2 time a day Take: USE ABIMAEL LO INDICADO DOS VECES AL LORELEI Quantity: 200 In Vitro , Notes to Pharmacist: Status: Refill Original Code: [id number] Brand: TRUE METRIX GLUCOSE TEST STRIP Gen: blood sugar diagnosticTaking True Metrix Blood Glucose Test - Strip Route: In Vitro Frequency: 2 time a day Take: USE ABIMAEL LO INDICADO DOS VECES AL LORELEI Quantity: 200 In Vitro , Notes to Pharmacist: Status: Refill Original Code: [id number] Brand: TRUE METRIX GLUCOSE TEST STRIP Gen: blood sugar diagnostic Objective: * Vitals: * Physical Examination: Assessment: Plan: * Treatment: * Procedure Codes: * * Date:
--- OUTSIDE RECORDS SUMMARY | 2025-02-07 07:55 | XMS_ITS | Encounter Summary ---
Author Organization [employer] Address 75 [facility] 7t [place] [address] Care Team Providers Care Window Decorator Name Role Phone Radha Carbajal MD Primary Care Provide r Reason for Visit * Reason Comments Med Refill Encounter Details Date Type Department Care Team ([facility] st Contact Info) Description 08/22/2024 Refill [facility] MEDICINE 230 [place], [place] [phone] Radha Carbajal MD 230 [place] [address] Chronic midline low back pain with right-sided [...] Clinical Support [facility] DIABETES/NUTRITION 230 [place] [address] [place] [address] 03/25/2025 10:00 AM EST Office Visit [facility] MEDICINE 230 [place] [address] Radha Carbajal MD 230 [place] [address] documented as of this encounter Visit Diagnoses Diagnosis Chronic midline low back pain with right-sided sciatica Pain Generalized pain documented in this encounter Additional Health Concerns Assessment Noted Time PHQ-9 Depression Total Score: 0 12/14/19 24 11:15 AM EDT documented as of this encounter Care Teams Window Decorator Relationship Specialty Start Date End Date Radha Carbajal MD [address] [place] [address] PCP - General Family Medicine 11/18/21 documented as of this encounter
--- OUTSIDE RECORDS SUMMARY | 2025-02-07 07:55 | XMS_ITS | Encounter Summary ---
Author Organization [employer] Address 75 [facility] 7t [place] [address] Care Team Providers Care Absorption Plant Operator Helper Name Role Phone Radha Carbajal MD Primary Care Provide r Reason for Visit * Reason Comments Med Refill Encounter Details Date Type Department Care Team ([facility] st Contact Info) Description 12/16/2024 Refill [facility] CHC MED & PEDS [address] [place], [place] [phone] Radha Carbajal MD 230 [place], [place] [phone] Pain Social History Tobacco Use Types Packs/Day [...] Description 02/19/2025 11:00 AM EDT Clinical Support [facility] DIABETES/NUTRITION 230 [place] [address] [place] [address] 03/25/2025 10:00 AM EST Office Visit [facility] MEDICINE 230 [place] [address] Radha Carbajal MD [address] [place] [address] documented as of this encounter Visit Diagnoses Diagnosis Pain Generalized pain documented in this encounter Additional Health Concerns Assessment Noted Time PHQ-9 Depression Total Score: 0 12/14/19 24 11:15 AM EDT documented as of this encounter Care Teams Absorption Plant Operator Helper Relationship Specialty Start Date End Date Radha Carbajal MD 230 [place] [address] PCP - General Family Medicine 11/18/21 documented as of this encounter
--- OUTSIDE RECORDS SUMMARY | 2025-02-07 07:55 | XMS_ITS | Encounter Summary ---
Author Organization [employer] Address 75 [facility] 7t [place] [address] Care Team Providers Care Fishing Floats Assembler Name Role Phone Radha Carbajal MD Primary Care Provide r Reason for Visit * Reason Comments Med Refill Encounter Details Date Type Department Care Team ([facility] st Contact Info) Description 05/11/2023 Refill [facility] MEDICINE 230 [place], [place] [phone] Pamela Hewitt MD 230 [place], [place] [phone] Pain Social History Tobacco Use Types Packs/Day [...] with others, in a hotel, in a long-term, living outside on the street, on a [...] Description 02/19/2025 11:00 AM EDT Clinical Support [facility] DIABETES/NUTRITION [address] [place] [address] [place] [address] 03/25/2025 10:00 AM EST Office Visit [facility] MEDICINE [address] [place] [address] Radha Carbajal MD [address] [place] [address] documented as of this encounter Visit Diagnoses Diagnosis Pain Generalized pain documented in this encounter Additional Health Concerns Assessment Noted Time PHQ-9 Depression Total Score: 7 08/27/19 23 12:00 PM EDT documented as of this encounter Care Teams Fishing Floats Assembler Relationship Specialty Start Date End Date Radha Carbajal MD [address] [place] [address] PCP - General Family Medicine 11/18/21 documented as of this encounter
--- OUTSIDE RECORDS SUMMARY | 2025-02-07 07:55 | XMS_ITS | Encounter Summary ---
Author Organization [employer] Address 75 [facility] 7t [place] [address] Care Team Providers Care Nanny Caregiver Name Role Phone Radha Carbajal MD Primary Care Provide r Encounter Details Date Type Department Care Team (Late st Contact Info) Description 09/26/2024 Orders Only [facility] MEDICINE 230 [place], [place] [phone] Radha Carbajal MD 230 [place], [place] [phone] Social History Tobacco Use Types Packs/Day Years [...] 11:00 AM EDT Clinical Support [facility] DIABETES/NUTRITION [address] [place] [address] [place] [address] 03/25/2025 10:00 AM EST Office Visit [facility] MEDICINE [address] [place] [address] Radha Carbajal MD [address] [place] [address] documented as of this encounter Visit Diagnoses Not on filedocumented in this encounter Additional Health Concerns Assessment Noted Time PHQ-9 Depression Total Score: 0 12/14/19 24 11:15 AM EDT documented as of this encounter Care Teams Nanny Caregiver Relationship Specialty Start Date End Date Radha Carbajal MD [address] [place] [address] [phone] PCP - General Family Medicine 11/18/21 documented as of this encounter
--- OUTSIDE RECORDS SUMMARY | 2025-02-07 07:55 | XMS_ITS | Encounter Summary ---
Author Organization [employer] Address 75 [facility] 7t [place] [address] Care Team Providers Care Digital Media Designer Name Role Phone Radha Carbajal MD Primary Care Provide r Reason for Visit * Reason Comments Med Refill Encounter Details Date Type Department Care Team (Late st Contact Info) Description 01/18/2023 Refill [facility]BILE VACCINE CLINIC 230 [place], [place] [phone] Akil Henderson MD 230 [place], [place] [phone] Primary hypertension Social History Tobacco Use Types [...] 02/19/2025 11:00 AM EDT Clinical Support [facility] DIABETES/NUTRITION 230 [place], [place] [phone] [address]ra [address] 230 [place] [address] 03/25/2025 10:00 AM EST Office Visit [facility] MEDICINE 230 [place] [address] Radha Carbajal MD 230 [place] [address] documented as of this encounter Visit Diagnoses Diagnosis Primary hypertension Unspecified essential hypertension documented in this encounter Additional Health Concerns Assessment Noted Time PHQ-9 Depression Total Score: 7 08/27/19 23 12:00 PM EDT documented as of this encounter Care Teams Digital Media Designer Relationship Specialty Start Date End Date Radha Carbajal MD 230 [place] [address] PCP - General Family Medicine 11/18/21 documented as of this encounter
--- OUTSIDE RECORDS SUMMARY | 2025-02-07 07:55 | XMS_ITS | Patient Health Record ---
Author Organization - [employer] Address [address] [place] [address] Care Team Providers Care Thermostatic Controls Supervisor Name Role Phone FERNANDA BKAER Primary Care Provider Dona [place] Unavailable [phone] Reason For Referral No Information Medications Medication [...] Status W/U Status Risk Notes Problem Hyperlipidemia (93765544) Hyperlipidemia, unspecified (E78.5) Active confirmed Problem Type II diabetes mellitus without complication (700912973) Type 2 diabetes mellitus without complications (E11.9) Active confirmed Problem Diabetic peripheral neuropathy associated with type 2 diabetes mellitus (4669641461100) Type 2 diabetes mellitus with diabetic neuropathy, unspecified (E11.40) Active confirmed Problem Sleep apnea (59789039) Sleep apnea, unspecified (G47.30) Active confirmed Problem Essential hypertension (07594114) Essential (primary) hypertension (I10) Active confirmed Problem Angina pectoris (392092975) Angina pectoris, unspecified (I20.9) Active confirmed Problem 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) (95753604480649484) 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) Active confirmed Problem Heart failure (54325156) Heart failure, unspecified (I50.9) Active confirmed Problem Fibromyalgia (054780233) Fibromyalgia (M79.7) Active confirmed Problem Specialized medical examination (58028594) Encounter for other specified special examinations (Z01.89) Active confirmed Plan Of Treatment Pending Test Test Name Order Date Nuclear Stress Test 03/03/2016 Insurance Providers Payer Name Payer Address Payer Phone Subscriber Number Group Number Insured Name Patient Relationship to Insured Coverage Start Date Coverage End Date [facility] [address] [address] [place] [phone] [id number] BREA ZHOU Self - patient is the insured Medical (General) History Medical History History ICD Code HTN DM DEPRESSION SLEEP APNEA WAITING FOR CPAP MACHINE 12/2015 ECHO EF 55-60% NO 06/14/2016 NST EQUIVOCAL RESULTS Surgical History Surgery Date(Month/Year) CHOLECYSTECTOMY 2010 KNEE SURGERY Hospitalization History Reason Date(Month/Year) abdominal pain 2010
--- OUTSIDE RECORDS SUMMARY | 2025-02-07 07:55 | XMS_ITS | Encounter Summary ---
Author Organization [employer] Address 75 [facility] 7t [place] [address] Care Team Providers Care Cv/Cvn Cv Tsc System Operator Name Role Phone Radha Carbajal MD Primary Care Provide r Reason for Visit * Reason Onset Date Comments FYI 08/07/2024 Encounter Details Date Type Department Care Team ([facility] st Contact Info) Description 08/07/2024 Telephone [facility] MEDICINE 230 [place], [place] [phone] Radha Carbajal MD 230 [place], [place] [phone] FYI Social History Tobacco Use Types Packs/Day [...] - 08/07/2024 3:51 PM EDT Tc from [facility] to report pt keeps changing cpap machine pressure. Any questions contact [phone] documented in this encounter Plan of Treatment Upcoming Encounters Date Type Department Care Team (Late st Contact Info) Description 02/19/2025 11:00 AM EDT Clinical Support [facility] DIABETES/NUTRITION [address] [place] [address] Petra Chin, MERY [address] [place] [address] 03/25/2025 10:00 AM EST Office Visit [facility] MEDICINE 230 [place], [place] [phone] Radha Carbajal MD 230 [place], [place] [phone] documented as of this encounter Visit Diagnoses Not on filedocumented in this encounter Additional Health Concerns Assessment Noted Time PHQ-9 Depression Total Score: 0 12/14/19 24 11:15 AM EDT documented as of this encounter Care Teams Cv/Cvn Cv Tsc System Operator Relationship Specialty Start Date End Date Radha Carbajal MD 230 [place] [address] PCP - General Family Medicine 11/18/21 documented as of this encounter
--- OUTSIDE RECORDS SUMMARY | 2025-02-07 07:55 | XMS_ITS | Clinical Summary ---
Author Organization [employer] Address [address] [facility] [address] [place] [address] Care Team Providers Care Donor Processor Name Role Phone Radha Carbajal MD Primary Care Provide r Allergies No known active allergies Medications Ventolin HFA 108 (90 Base) MCG/ACT inhaler 2 puffs every 4 (four) hours if needed. 2 Active ALPRAZolam (Xanax) 0.25 MG tablet Take 0.25 mg by mouth in the morning and at bedtime. 2 Active Blood Glucose Monitoring Suppl ([employer]: The Brain Store Lite) w/Device kit TEST BLOOD SUGAR TWICE DAILY 2 Active cilostazol (Pletal) 50 MG tablet 1 TABLET 30 MINUTES BEFORE OR 2 HOURS AFTER BREAKFAST AND DINNER ORALLY TWICE A DAY 90 DAYS 2 Active cloNIDine (Catapres) 0.1 MG tablet take 1 tablet by oral route 2 times every day NEEDED Active clotrimazole (Lotrimin) 1 % cream APPLY TO AFFECTED AREA TWICE A DAY IN THE MORNING AND IN THE EVENING 2 Active DULoxetine (Cymbalta) [address] capsule Take 1 capsule by mouth at bed time. Active tamsulosin (Flomax) 0.4 MG 24 hr capsule Take 1 capsule by mouth at bed time. 1 Active tolterodine LA (Detrol LA) 4 MG 24 hr capsule Take 4 mg by mouth in the evening. 3 Active meloxicam (Mobic) 7.5 MG tabletIndication s:Chronic pain of right knee 1-2 tab po daily prn pain 30 tablet 3 Active triamcinolone (Kenalog) 0.1 % creamIndications :Dermatitis Apply topically 2 times daily. 15 g 4 Active albuterol (2.5 MG/3ML) 0.083% nebulizer solutionIndicati ons:Mild asthma, unspecified whether complicated, unspecified whether persistent Take 3 mL (2.5 mg) by nebulization every 6 (six) hours if needed for wheezing. 75 mL 4 Active albuterol 108 (90 Base) MCG/ACT inhalerIndicatio ns:Mild asthma, unspecified whether complicated, unspecified whether persistent Inhale 2 puffs every 6 (six) hours if needed for wheezing. 18 g 4 Active glipiZIDE XL (Glucotrol XL) 10 MG 24 hr tablet TAKE 1 TABLET BY MOUTH EVERY MORNING WITH BREAKFAST 90 tablet 3 4 Active hydroCHLOROthiaz emily (Microzide) 12.5 MG capsule TAKE 1 CAPSULE BY MOUTH EVERY MORNING 90 capsule 3 4 Active lidocaine (Lidoderm) 5 % patchIndications :Chronic midline low back pain with right-sided sciatica Apply 1 patch topically Once per day. Remove & discard patch within 12 hours or as directed by MD. 30 patch 2 4 Active melatonin 5 MG tablet 4 Active hydrOXYzine pamoate (Vistaril) 25 MG capsule 4 Active pantoprazole (Protonix) 20 MG EC tabletIndication s:Heartburn Take 1 tablet (20 mg) by mouth before breakfast. Do not crush, chew, or split. 30 tablet 11 5 026 Active cyclobenzaprine (Flexeril) 10 MG tabletIndication s:Chronic bilateral low back pain, unspecified whether sciatica present TAKE 1 TABLET BY MOUTH THREE TIMES DAILY 60 tablet 2 5 Active triamcinolone (Kenalog) 0.5 % creamIndications :Dry skin dermatitis Apply topically 3 times daily. 80 g 1 5 Active metFORMIN XR (Glucophage-XR) 500 MG 24 hr tabletIndication s:Type 2 diabetes mellitus with hyperglycemia, without long-term current use of insulin (HCC) TAKE 2 TABLETS BY MOUTH TWICE DAILY IN THE MORNING AND EVENING 360 tablet 1 5 Active carvedilol (Coreg) 3.125 MG tabletIndication s:Hypertension, unspecified type TAKE 1 TABLET BY MOUTH TWICE DAILY IN THE MORNING AND IN THE EVENING WITH FOOD 180 tablet 1 5 Active cyanocobalamin (Vitamin B-12) 500 MCG tablet TAKE 1 TABLET BY MOUTH EVERY MORNING 90 tablet 1 5 Active thiamine (Vitamin B-1) 100 MG tablet TAKE 1 TABLET BY MOUTH EVERY MORNING 90 tablet 1 5 Active amLODIPine (Norvasc) 10 MG tablet TAKE 1 TABLET BY MOUTH EVERY MORNING 90 tablet 1 5 Active ezetimibe (Zetia) 10 MG tablet TAKE 1 TABLET BY MOUTH EVERY MORNING 90 tablet 1 5 Active lisinopril 40 MG tabletIndication s:Primary hypertension TAKE 1 TABLET BY MOUTH EVERY MORNING 90 tablet 1 5 Active rosuvastatin (Crestor) 20 MG tablet TAKE 1 TABLET BY MOUTH EVERY MORNING 90 tablet 1 5 Active Tirzepatide (Mounjaro) 2.5 MG/0.5ML solution auto-injectorInd ications:Type 2 diabetes mellitus with hyperglycemia, without long-term current use of insulin (HCC) Inject 2.5 mg under the skin 1 (one) time per week. 2 mL 2 5 Active gabapentin (Neurontin) 100 MG capsuleIndicatio ns:Pain TAKE 1 CAPSULE BY MOUTH TWICE DAILY IN THE MORNING AND IN THE EVENING 60 capsule 1 5 Active TRUEplus Lancets 33G miscIndications: Type 2 diabetes mellitus with hyperglycemia, without long-term current use of insulin (HCC) USE DIRECTED TO TEST BLOOD SUGAR TWICE DAILY 100 each 5 Active FREESTYLE LITE test stripIndications :Type 2 diabetes mellitus with hyperglycemia, without long-term current use of insulin (HCC) USE DIRECTED TO TEST BLOOD SUGAR TWICE DAILY 100 strip 5 Active Active Problems Problem Noted Date Diagnosed Date [...] PM EST): Apply heat on affected area Fur Cutter referral Flexeril and lidocaine patches prescribed COVID-19 [...] Type Department Care Team Description 01/29/2025 Telephone [facility] [address] [place] [phone] Radha Carbajal MD Care Coordination; Lab Orders 01/22/2025 9:30 AM EDT Clinical Support [facility] DIABETES/NUTRITION [address] [place] [address] Type 2 diabetes mellitus with hyperglycemia, without long-term current use of insulin ([facility]) (Primary Dx); Morbid obesity with body mass index (BMI) of 45.0 to 49.9 in adult ([facility]) 01/22/2025 Travel 01/22/2025 Telephone [facility] [address] [place] [address] Radha Carbajal MD Tspot 01/05/2025 Refill [facility] [address] [place] [phone] Rosanna Ho DO Type 2 diabetes mellitus with hyperglycemia, without long-term current use of insulin ([facility]) 12/24/2024 11:00 AM EDT Clinical Support [facility] DIABETES/NUTRITION [address] [place] [address] Type 2 diabetes mellitus with hyperglycemia, without long-term current use of insulin ([facility]) (Primary Dx); Morbid obesity with BMI of 45.0-49.9, adult ([facility]) 12/24/2024 Travel 12/21/2024 Refill [facility] [address] [place] [address] Radha Carbajal MD Pain 12/20/2024 10:00 AM EDT Office Visit [address] [phone] Radha Carbajal MD Essential hypertension (Primary Dx); Type 2 diabetes mellitus with hyperglycemia, without long-term current use of insulin ([facility]); Obstructive sleep apnea syndrome; Dietary counseling; Exercise counseling; Class 3 severe obesity due to excess calories with serious comorbidity and body mass index (BMI) of 45.0 to 49.9 in adult 12/20/2024 Travel 12/18/2024 Telephone [facility] [address] [place] [phone] Radha Carbajal MD Chart Prep 12/17/2024 Refill [facility] [address] [place] [phone] Akil Henderson MD Primary hypertension 12/16/2024 Refill [facility] [address] [place] [address] Radha Carbajal MD Pain 12/14/2024 Refill [facility] [address] [place] [address] Radha Carbajal MD Type 2 diabetes mellitus with hyperglycemia, without long-term current use of insulin ([facility]) 12/11/2024 Patient Outreach [facility] [address] [place] [address] Radha Carbajal MD Pre-visit Planning ([facility] screening completed on 06/07/2024) 11/26/2024 9:00 AM EDT Clinical Support [facility] DIABETES/NUTRITION [address] [place] [address] Type 2 diabetes mellitus with hyperglycemia, without long-term current use of insulin ([facility]) (Primary Dx); Morbid obesity with BMI of 45.0-49.9, adult ([facility]) 11/26/2024 Travel 11/21/2024 Refill [facility] [address] [place] [address] Radha Carbajal MD 11/12/2024 10:00 AM EDT Clinical Support [facility] DI[facility]NUTRITION [address] [place] [phone] Type 2 diabetes mellitus with hyperglycemia, without long-term current use of insulin ([facility]) (Primary Dx); Morbid obesity with body mass index (BMI) of 45.0 to 49.9 in adult ([facility]) 11/12/2024 Travel from Last 3 Months Immunizations [...] Description 02/19/2025 11:00 AM EDT Clinical Support [facility] DIABETES[facility]NUTRITION [address] [place] [address] Petra Chin, MERY [address] [place] [address] 03/25/2025 10:00 AM EST Office Visit [facility] [address] [place] [address] Radha Carbajal MD [address] [place] [address] Health Maintenance Due Date Last Done Comments [...] Priority Date/Time Associated Diagnosis Comments T-SPOT(R).TB Routine 01/30/2025 9:24 AM EDT Health care maintenance T-SPOT(R).TB Routine 01/22/2025 10:25 AM EDT Encounter [...] Relevant to Health Maintenance Results * T-SPOT??.TB (01/30/2025 9:24 AM EDT) Only the most recent of2 resultswithin the time period is included. T Spot TB Negative Negative [facility] Comment:A negative test resu lt does not exclude the possibilityof exposure to or infection with Mycobacteriumtuberculosis (M. tuberculosis). Patients with recentexposure to TB infected individuals exhibiting anegative T-SPOT.TB result should be considered forretesting within 6 weeks or if other relevant clinicalsymptoms indicate. Results from T-SPOT.TB testing mustbe used in conjunction with each individual'sepidemiological history, current medical status,and results of other diagnostic evaluations.The T-SPOT.TB test is qualitative and results arereported as positive, borderline, or negative, giventhat the test controls perform as expected. In linewith the Centers for Disease Control and Prevention's2010 recommendation to report quantitative measurementsalongside the qualitative result, the laboratoryprovides spot counts for informational purposes only.The T-SPOT.TB test should not be interpreted as aquantitative test. TS PANEL A 1 [facility] TS PANEL B 0 [facility] Negative Control Passed [facility] Positive Control Passed [facility] Comment:For additional infor stephane, please refer tohttp://education.Yottaa/faq/DLS619(This link is being provided for informational/educational purposes only.)REPORT COMMENT:REC'D AT [facility] TEST WAS PERFORMED AT:[employer] [id number] [place] [id number] W. MASON,MD,PHD 01/30/2025 9:24 AM EDT 01/30/2025 11:28 AM EDT us Radha Koenig MD LAB BLOOD ORDERABLES Final Result [facility] [address] [place] [address] [phone] * Referral to Podiatry (01/03/2025) us Radha Koenig MD OUTPATIENT REFERRAL O RDERABLES Final Result * Albumin, Random Urine W/Creatinine (12/24/2024 9:30 AM EDT) Creatinine, Urine 122.79 mg/dL [facility] Microalbumin Urine 28.0 mg/L [facility] Microalbum Creatinine Ratio Ur 22.8 <30 ug/mg cr [facility] Comment:Albumin/Creatinine R atio Reference Ranges: Normal: < 30 ug/mg creatinine Microalbuminuria: 30 - 300 ug/mg creatinineClinical Albuminuria: > 300 ug/mg creatinine Urine (Urine, Random) 12/24/2024 9:30 AM EDT 12/24/2024 11:18 AM EDT Radha Koenig MD LAB URINE ORDERABLES Final Result [facility] [address] [place] [phone] * (ABNORMAL) Lipid Panel, Standard (12/24/2024 9:30 AM EDT) Triglycerides 99 <150 mg/dL [facility] Comment:Desirable Triglyceri de: less than 150 mg/dLBorderline High Triglyceride 150-199 mg/dLHigh Triglyceride: 200-499 mg/dLVery High Triglyceride: greater than or equal to 5OO mg/dL Cholesterol 94 <200 mg/dL [facility] Comment:Desirable Cholestero l: less than 200 mg/dLBorderline High Cholesterol: 200-239 mg/dLHigh Cholesterol: greater than 239 mg/dL LDL Cholesterol Calculated 37 <100 mg/dL [facility] Comment:Desirable LDL: less than 100 mg/dLNear Optimal/Above Optimal LDL: 110- 129 mg/dLBorderline High LDL: 130-159 mg/dLHigh LDL: 160-189 mg/dLVery High LDL: greater than or equal to 190 mg/dL HDL Cholesterol 38(L) >40 mg/dL [facility] Comment:Desirable HDL: great er than 40 mg/dL Note: This HDL assay may give artificially low results in patients with liver disease. Blood Venous blood specimen / Unknown 12/24/2024 9:30 AM EDT 12/24/2024 11:10 AM EDT us Radha Koenig MD LAB BLOOD ORDERABLES Final Result [facility] [address] [place] [address] [phone] * (ABNORMAL) Comprehensive Metabolic Panel (12/24/2024 9:30 AM EDT) Sodium 142 135 - 145 mmol/L [facility] Potassium 3.9 3.3 - 5.1 mmol/L [facility] Chloride 111(H) 96 - 108 mmol/L [facility] Carbon Dioxide 22 22 - 29 mmol/L [facility] Anion Gap 13 12 - 20 [facility] Urea Nitrogen (BUN) 16 9 - 16 mg/dL [facility] Creatinine, Serum 0.86 0.5 - 1.4 mg/dL [facility] Estimated Glomerular Filt Rate >60 [facility] Comment:Chronic Kidney Disea se: Estimated GFR < 60 mL/min/1.60e5Fhuoea Kidney Disease: Estimated GFR < 15 mL/min/1.73m2 Glucose 151(H) 60 - 115 mg/dL [facility] Calcium 9.5 8.4 - 10.2 mg/dL [facility] Bilirubin, Total 0.6 0.0 - 1.0 mg/dL [facility] Aspartate Amino Transferase 50(H) 5 - 37 U/L [facility] Alanine Aminotransferase 55(H) 0 - 40 U/L [facility] Total Protein 7.8 6.5 - 8.0 g/dL [facility] Albumin Level 4.7 3.5 - 5.0 g/dL [facility] Alkaline Phosphatase 60 39 - 117 U/L [facility] Blood Venous blood specimen / Unknown 12/24/2024 9:30 AM EDT 12/24/2024 11:10 AM EDT Radha Koenig MD LAB BLOOD ORDERABLES Final Result [facility] [address] [place], [place] [phone] * (ABNORMAL) POCT HGB A1C (12/20/2024 10:10 AM EDT) Hemoglobin A1C 6.0(A) 4.0 - 5.7 % QC Media Lot # [id number] Lot# Expiration Date 472, Blood 12/20/2024 10:1 0 AM EDT Radha Koenig MD POINT OF CARE TEST EN TER/EDIT ORDERABLES Final Result * (ABNORMAL) POCT Glucose (12/20/2024 10:06 AM EDT) Pathologist [facility] Glucose Blood, POC 209(A) 60 - 200 mg/dL QC Media Lot # [id number] Lot# Expiration Date [id number] Blood Capillary blood specimen / Unknown 12/20/2024 10:06 AM EDT Radha Koenig MD POINT OF CARE TEST EN TER/EDIT ORDERABLES Final Result * Cologuard?? colon cancer screening (03/30/2024 12:08 AM EST) Cologuard Result Negative Negative 04/07/20 12:55 AM EST [facility] (CLIA #:[id number]) Comment: NEGATIVE TEST RESULT. A negative Cologuard [...] (Airam Stiles al, N Engl J Med 2014;370(14):4182-7761) The normal value (reference range) for this assay is negative. COLOGUARD RE-SCREENING RECOMMENDATION: Periodic colorectal cancer screening is an important part of preventive healthcare for asymptomatic individuals at average risk for colorectal cancer. Following a negative Cologuard result, the [place] [employer] and U.S. Multi-Society Task Force screening guidelines recommend a Cologuard re-screening interval of 3 years. References: [place] [employer] Guideline for Colorectal Cancer Screening: https://www.cancer.org/cancer/terpl-qgsmro-awaxof/hamerhdak-yofhgxlya-vbgexcp/ac s-rec ommendations.html.; Tim DK, Sadi ALEMAN, Binh KILGORE, Colorectal Cancer Screening: Recommendations for Physicians and Patients from the U.S. Multi-Society Task Force on Colorectal Cancer Screening , Am J Gastroenterology 2017; 112:0471-4021. TEST DESCRIPTION: Composite algorithmic analysis of stool [...] (Airam Stiles al, N Engl J Med 2014;370(14):4760-8133.) Cologuard may produce a false negative or false positive result (no colorectal cancer or precancerous polyp present at colonoscopy follow up). A negative Cologuard test result does not guarantee the absence of CRC or advanced adenoma (pre-cancer). The current Cologuard screening interval is every 3 years. ([place] [employer] and U.S. Multi-Society Task Force). Cologuard performance data in a 10,000 patient pivotal study using colonoscopy as the reference method can be accessed at the following location: www.Flipps.Venda/results. Additional description of the Cologuard test process, warnings and precautions can be found at www.cologuard.com. Stool specimen (specimen) 03/30/2024 12:08 AM EST 03/31/2024 12:28 PM EST us Radha Koenig MD LAB MOLECULAR DIAGNOS TICS ORDERABLES Final Result Performing Organization Address [facility] Co de Phone Number [facility] (CLIA #:[id number]) [place] [address], * Hepatitis C Viral RNA, Quantitative, Real-Time PCR (12/14/2023 12:12 PM EDT) Hepatitis C Viral Load <15 NOT DETECTED NOT DETECTED IU/mL [facility] HCV Log PCR <1.18 NOT DETECTED NOT DETECTED Log IU/mL [facility] Comment:For additional infor stephnae, please refer tohttp://education.Yottaa/faq/MHE41h5(This link is being provided for informational/educational purposes only.)THIS TEST WAS PERFORMED AT:[facility] [place] [id number] POPE MD Blood 12/14/2023 12:1 2 PM EDT 12/14/2023 12:57 PM EDT Radha Koenig MD LAB BLOOD ORDERABLES Final Result Performing Organization Address [facility] Co de Phone Number [facility] [address] [place] [address] [phone] * HIV-1/2 Antigen and Antibodies, Fourth Generation, with Reflexes (12/14/2023 12:12 PM EDT) HIV AB/AG Nonreactive Nonreactive [facility] Comment:HIV-1 p24 Ag and/or HIV-1/HIV-2 Ab not detected.A test result that is nonreactive does not exclude thepossibility of exposure to or infection with HIV-1 and/orHIV-2. Nonreactive results in this assay for individualswith prior exposure to HIV-1 and/or HIV-2 may be due toantigen and antibody levels that are below the limit ofdetection of this assay.The Debt Resolve HIV Ag/Ab Combo assay result andsupplemental assay results should be interpreted inconjunction with the patient's clinical presentation,history and other laboratory results. If the results areinconsistent with clinical evidence, additional testing issuggested to confirm the result. Blood Venous blood specimen / Unknown 12/14/2023 12:12 PM EDT 12/14/2023 12:57 PM EDT us Radha Koenig MD LAB BLOOD ORDERABLES Final Result [facility] [address] [place] [address] [phone] from Last 3 Months or Most Recently Relevant to Health Maintenance Insurance Care Teams Donor Processor Relationship Specialty Start Date End Date Radha Carbajal MD [address] [place] [phone] PCP - General Family Medicine 11/18/21
--- OUTSIDE RECORDS SUMMARY | 2025-02-07 07:55 | XMS_ITS | Encounter Summary ---
Author Organization [employer] Address [address] [facility] 7t [place] [address] Care Team Providers Care Avionics Installer Name Role Phone Radha Carbajal MD Primary Care Provide r Encounter Details Date Type Department Care Team (Late Contact Info) Description 01/28/2023 Telephone [facility] [address] [place] [address] [phone] Radha Carbajal MD [address] [place] [address] [phone] Social History Tobacco Use Types Packs/Day Years [...] Description 02/19/2025 11:00 AM EDT Clinical Support [facility] DIABETES/NUTRITION [address] [place] [phone] [place] [address] 03/25/2025 10:00 AM EST Office Visit [facility] [address] [place] [phone] Radha Carbajal MD [address] [place] [address] documented as of this encounter Visit Diagnoses Not on filedocumented in this encounter Additional Health Concerns Assessment Noted Time PHQ-9 Depression Total Score: 7 08/27/19 23 12:00 PM EDT documented as of this encounter Care Teams Avionics Installer Relationship Specialty Start Date End Date Radha Carbajal MD [address] [place] [address] PCP - General Family Medicine 11/18/21 documented as of this encounter
--- OUTSIDE RECORDS SUMMARY | 2025-02-07 07:55 | XMS_ITS | Encounter Summary ---
Author Organization [employer] Address [address] [facility] [address]t [place] [address] Care Team Providers Care Fruit Dumper Name Role Phone Radha Carbajal MD Primary Care Provide r Encounter Details Date Type Department Care Team (Late Contact Info) Description 04/29/2022 Telephone [facility] [address] [place] [phone] Radha Carbajal MD [address] [place] [phone] Social History Tobacco Use Types Packs/Day Years [...] Description 02/19/2025 11:00 AM EDT Clinical Support [facility] DIABETES/NUTRITION [address] [place] [phone] Petra Chin, MERY [address] [place] [phone] 03/25/2025 10:00 AM EST Office Visit [facility] [address] [place] [phone] Radha Carbajal MD [address] [place] [phone] documented as of this encounter Visit Diagnoses Not on filedocumented in this encounter Care Teams Fruit Dumper Relationship Specialty Start Date End Date Radha Carbajal MD [address] [place] [phone] PCP - General Family Medicine 11/18/21 documented as of this encounter
--- OUTSIDE RECORDS SUMMARY | 2025-02-07 07:55 | XMS_ITS | Encounter Summary ---
Author Organization [employer] Address [address] [facility] 7t [place] [address] Care Team Providers Care Ambulatory Analyst Name Role Phone Radha Carbajal MD Primary Care Provide r Reason for Visit * Reason Comments Med Refill Encounter Details Date Type Department Care Team ([facility] st Contact Info) Description 06/14/2024 Refill [facility] [address] [place], [place] [phone] Radha Carbajal MD [address] [place], [place] [phone] Pain Social History Tobacco Use Types Packs/Day [...] Description 02/19/2025 11:00 AM EDT Clinical Support [facility] DIABETES/NUTRITION [address] [place] [phone] [place] [address] 03/25/2025 10:00 AM EST Office Visit [facility] [address] [place] [phone] Radha Carbajal MD [address] [place] [phone] documented as of this encounter Visit Diagnoses Diagnosis Pain Generalized pain documented in this encounter Additional Health Concerns Assessment Noted Time PHQ-9 Depression Total Score: 0 12/14/19 24 11:15 AM EDT documented as of this encounter Care Teams Ambulatory Analyst Relationship Specialty Start Date End Date Radha Carbajal MD [address] [place] [phone] PCP - General Family Medicine 11/18/21 documented as of this encounter
--- OUTSIDE RECORDS SUMMARY | 2025-02-07 07:55 | XMS_ITS | Clinical Summary ---
Author Organization [facility] Address [address] [place] [address] Phone Care Team Providers Care Senior Coldfusion Developer Name Role Phone Radha Carbajal MD Primary [...] 9:15 AM EDT Office Visit Orthopedic Surgery [facility] [address] [facility] [address] [place] [address] Abhinav Wilson, DPM Metatarsalgia of [...] AM EST Office Visit Orthopedic Surgery - [place] [address] [facility] [address] [place] [address] Abhinav Wilson, DPLukasz [address] [facility] [address] [place] [address] 04/10/2025 2:30 PM EST Consult Vascular Surgery - [place] [address] [place] [phone] Fariba Borja MD [address] [place] [phone] Health Maintenance Due Date Last Done Comments [...] patient's age to complete this topic Insurance [facility] Member Subscriber Plan / Payer (Ef fective 2021-Present) Name:JON CHAN Relation to Subscriber:Self Name:Jon Chan Payer ID:[id number] Group ID:[id number] Type:Not on file Address: [address] [place] [id number] Care Teams Senior Coldfusion Developer Relationship Specialty Start Date End Date Radha Carbajal MD [address] [place] [phone] PCP - General Internal Medicine 03/27/24
--- OUTSIDE RECORDS SUMMARY | 2025-02-07 07:55 | XMS_ITS | Patient Health Record ---
Author Organization [facility] Address [address] [phone] Care Team Providers Care Child And Family Counselor Name Role Phone Migration, Provider Unavailable [phone] Reason For Referral No Information Medications Medication SIG (Take, Route, Frequency, Duration) Notes Start Date End Date Status True Metrix Blood Glucose Test - Route: In Vitro Frequency: 2 time a day Take: USE ABIMAEL LO INDICADO DOS VECES AL LORELEI Quantity: 200 In Vitro Status: Refill Original Code: [id number] Brand: TRUE METRIX GLUCOSE TEST STRIP Gen: blood sugar diagnostic 08/11/2021 Active Immunizations Vaccine Route Administration Date Status Comme nts Moderna Covid-19 Vaccine 1st dose IM Intramuscular 06/10/2021 Administered Encounters Encounter Location Date Provider Diagnosis [employer] [facility] [address] [phone] 11/17/2024 Provider Migration [employer] [facility] [address] [phone] 11/18/2024 Provider Migration Plan Of Treatment No Information Insurance Providers Payer Name Payer Address Payer Phone Subscriber Number Group Number Insured Name Patient Relationship to Insured Coverage Start Date Coverage End Date [facility] [address] [address] [place] [phone] [id number] Jon Hinkle Self - patient is the insured 8 Medications Administered Medication Instructions Date of Administration Dosage Notes Dexamethasone Sodium Phosphate 01/25/2020 Toradol 01/25/2020 Toradol 02/28/2020 Trulicity 07/17/2019 Trulicity 07/24/2019 Trulicity 07/31/2019 Trulicity 09/24/2019 Medical (General) History Surgical History Surgery Date(Month/Year) Sx_Procedure : TTE W/DOPPLER COMPLETE Sx_Procedure : DRAIN/MJ JOINT/BURSA W/O US 2018 Sx_Procedure : Hyalgan/supartz inj per d ose 2018 Sx_Procedure : Ketorolac tromethamine in j 2019 Sx_Procedure : Dexamethasone sodium phos 2019 Sx_Procedure : dm SARscov2 50mcg/o 2.5ml BST 2021 Sx_Procedure : LOWER EXTREMITY STUDY Sx_Procedure : Moderna COVID-19 Vaccine Booster 2021 Sx_Procedure : Quantiflo-Single Layer Sx_Procedure : INFRARED THERAPY 2021
--- NOTE | 2025-02-07 07:59 | A.OFFVIS_ITS ---
Vital Signs 02/07/25 08:00 Height 5 ft 7 in Weight 188 lb BMI 29.4 Intake Visit Reasons: Right Knee Injection - Last Done 12/06/24 Intake Note: Jon is a 58 year old male who presents today for a repeat Right Knee Injection. Last injection administered to the right knee on 12/06/24. Allergies No Known Allergies Allergy (Verified 12/06/24 10:05) HPI HPI Right Knee Injection - Last Done 12/06/24: Details: a 58 year old male who presents today for a repeat Right Knee Injection. Last injection administered to the right knee on 12/06/24. COUNT INCLUDES THE [facility] Medical History Depression with anxiety Asthma Chronic back pain GERDA (obstructive sleep apnea) Hyperlipidemia, unspecified Essential hypertension Diabetes mellitus type 2 in obese Morbid obesity Surgical History Hx of cholecystectomy Hx of oral surgery H/O right knee surgery Family History Father Lung cancer Mother Cancer Liver failure Sister No problems noted. Brother No problems noted. Brother No problems noted. Social History Alcohol intake: never Patient Tobacco Use Status: Never used Tobacco Physical Exam Vital Signs: BMI result Body Mass Index 29.4 Extrem Other: There is severe varus alignment of the right knee with tenderness to palpation medially. He walks with a cane. He has 10 to 120 degrees motion. Assessment & Plan Assessment & Plan (1) Osteoarthritis of right knee: Code(s): M17.11 - Unilateral primary osteoarthritis, right knee Category: Medical Plan: I injected his right knee. Not currently a surgical candidate. (2) Diabetes mellitus type 2 in obese: Code(s): E11.69 - Type 2 diabetes mellitus with other specified complication; E66.9 - Obesity, unspecified Category: Medical Plan: Discussed the hyperglycemic effects of steroids Coding Level of Care Code Est Pt Level 4 (70321) Diagnoses Osteoarthritis of right knee M17.11 Diabetes mellitus type 2 in obese E11.69; E66.9
[2025-02-07 08:00] VITALS: BMI 29.4
== END 2025-02-07 09:18 | disposition home or self-care (01) ==
LOC: HO.HOS 07:52
PROVIDERS: PCP Internal Medicine; Visit Provider Orthopaedic Surgery
DX: M17.11 Unilateral primary osteoarthritis, right knee (principal); E11.69 Type 2 diabetes mellitus with other specified complication; E66.9 Obesity, unspecified
CPT/HCPCS: 20610; 99214

== ENCOUNTER → 2025-02-07 07:51 | Outpatient (BNVA) | payer OTHER, SELFPAY | PROVIDERS: PCP Internal Medicine; Visit Provider Orthopaedic Surgery | DX: M17.11 Unilateral primary osteoarthritis, right knee (principal); E11.69 Type 2 diabetes mellitus with other specified complication; E66.9 Obesity, unspecified | CPT/HCPCS: 20610; 99212; J0665; J1100; J2003 ==